=== PATIENT | female | born 1965 | race Caucasian/White ===

== ENCOUNTER 2020-07-09 17:06 | Outpatient (REF) | payer OTHER, SELFPAY ==
--- NOTE | 2020-07-09 | MM_ITS ---
EXAMINATION: MM SCREENING DIGITAL BREAST TOMOSYNTHESIS, BILATERAL CLINICAL INFORMATION: Screening. Asymptomatic. The lifetime risk of breast cancer based on the Tyrer-Cuzick Model is 12.6%. COMPARISON: Mammography: April 17, 2019 and studies dating back to September 16, 2011 TECHNIQUE: Digital breast tomosynthesis is performed in both the craniocaudal and mediolateral oblique views along with computer-aided detection (CAD). Synthesized 2D images are generated from the tomosynthesis. FINDINGS: There are scattered areas of fibroglandular density (ACR BI-RADS breast composition Category b). There are no significant masses, abnormal calcifications, or other abnormalities. Density about the mid lateral aspect of the left breast with a few calcifications is seen to represent superimposition of fibroglandular tissue with some vascular calcifications. MM/MM tomosynthesis screening BI IMPRESSION: There are no significant changes from prior study. ASSESSMENT: BI-RADS 1: Negative RECOMMENDATION: Routine annual mammography screening. This patient's information was entered into a reminder system with a target due date for their next mammogram.
== END 2020-07-09 17:07 | disposition home or self-care (01) ==
LOC: HO.MAMMO 17:06
PROVIDERS: PCP Internal Medicine; Visit Provider Internal Medicine
DX: Z12.31 Encounter for screening mammogram for malignant neoplasm of breast (principal)
CPT/HCPCS: 77063; 77067

== ENCOUNTER → 2020-12-23 08:03 | Outpatient (BNVA) | payer OTHER, SELFPAY | PROVIDERS: PCP Internal Medicine; Visit Provider Internal Medicine ==

== ENCOUNTER → 2020-12-23 | Outpatient (REF) | payer OTHER, SELFPAY | LOC: HO.CARD | PROVIDERS: Visit Provider Internal Medicine | DX: R07.2 Precordial pain (principal); I10 Essential (primary) hypertension; Z79.899 Other long term (current) drug therapy | CPT/HCPCS: 93005 ==

== ENCOUNTER → 2020-12-25 07:25 | Outpatient (REF) | payer OTHER, SELFPAY ==
--- NOTE | ~2020-12-25 | NM_ITS ---
Exercise Myocardial perfusion study Indication: Chest pain on exertion Technique: The patient was brought in for an exercise perfusion study on 12/25/2020. Patient performed exercise as per Zoltan protocol and was injected 30 mCi of sestamibi was given intravenously one target HR was achieved. Images were obtained using the SPECT gamma camera interlaced with the gating device. Images were obtained in supine position. Resting perfusion study was performed on 12/28/2020. Patient was administered 30 mCi of sestamibi intravenously at rest. Images were then obtained in supine position. Gy-cm Images were processed with the software and compared side to side in short axis, horizontal long axis and vertical long axis views. Findings: The stress perfusion study showed non attenuated images show mildly reduced uptake in the septum and distal anterior wall of the LV myocardium. Remainder of the LV myocardium is normally. Attenuation corrected images show moderately reduced uptake in the distal anterior, septal and severely reduced uptake in the distal septum and apex of the myocardium. Remainder of the LV myocardium is normally. The gated study shows normal LV systolic function with calculated LVEF of 59%. LV cavity is mildly dilated in size. The gated study shows normal systolic wall thickening and contraction of all segments. There is no transient ischemic dilation. Resting study shows no change in perfusion pattern compared to stress study. Gating at rest reveals normal systolic wall motion with ejection fraction at 61%. The findings are consistent with no clear reversible defect suggestive of ischemia. Fixed defect most suggestive soft tissue attenuation given that the gated wall motion shows normal thickening normal wall motion. NM/NM avril perf SPECT rest & str Impression: 1. Likely normal myocardial perfusion 2. Gated LVEF is 59% 3. Transient ischemic dilatation not present Stress EKG is positive for ischemia. Clinical correlation suggested
--- NOTE | 2020-12-25 07:28 | CA_ITS ---
Transthoracic Echocardiogram Patient (Last, First, Middle): Stefanie Goins A Gender: Female Date of : 1965 Age: 55 Procedure Date: 12/25/2020 Procedure Type: Transthoracic Echocardiogram Location: OP Height: 167.64 cm Weight: 99.79 kg BSA: 2.08 m2 Heart Rate: bpm BP: 138 / 80 mmHg Prison Classification Counselor: Jaida MD: Jerome Mendieta MD Quality Control Inspector Heading: Anthony Diaz MD Symptoms: I10 - Essential (primary) hypertension Study Quality: Good ECG Rhythm: Sinus Conclusions: - Normal study Findings Left Ventricle Normal left ventricular size, thickness, and systolic function. The visually estimated ejection fraction is between 60-65%. Diastolic function is normal for age. Right Ventricle Normal right ventricular cavity size and systolic function. Atria Both atria are normal in size. There is no evidence of interatrial shunt. Aortic Valve Normal aortic valve structure and function. There is no aortic valve stenosis. There is no aortic valve regurgitation. Mitral Valve Normal mitral valve structure and function. There is trace mitral valve regurgitation. There is no mitral valve stenosis. Pulmonic Valve The pulmonic valve is likely normal. Tricuspid Valve Normal tricuspid valve structure. There is trace tricuspid valve regurgitation. The right ventricular systolic pressure is normal. The right ventricular systolic pressure is 31 mmHg. There is no evidence of pulmonary hypertension. Great Vessels All visible segments of the aorta are normal in size. The pulmonary artery was not well visualized. Venous The inferior vena cava is normal in size and collapses greater than 50% with inspiration. Pericardium/Pleural There is no evidence of pericardial effusion. Measurements 2D Linear Measurements RVIDd: 3.10 RVIDd Index: 1.49 IVSd: 0.95 0.6-0.9/0.6-1.0 cm LVIDd: 5.83 3.9-5.3/4.2-5.9 cm LVIDd Index: 2.80 2.4-3.2/2.2-3.1 cm/m2 LVIDs: 4.05 2.0-3.6 cm LVPWd: 0.92 0.7-1.1 cm Ao Root: 2.90 2.1-3.5 cm LA Diam: 3.80 2.7-3.8/3.0-4.0 cm LAIDs Index: 1.83 1.5-2.3 cm/m2 LV Mass: 269.45 67-162/88-224 g LV Mass Index: 129.54 43-95/49-115 g/m2 LVOT Diam: 2.00 3.0+(-)1.3 cm 2D Systolic Function EF 4C: 59.80 >55% EF 2C: 67.50 >55% EF BiP: 64.10 >55% Mitral Valve MV Pk E: 0.78 MV PK A: 0.64 MV Decel Time: 215.00 E/A: 1.20 E'Lateral: 10.70 E'Medial: 5.87 E/E' Med: 13.20 E/E' Lat: 7.30 Aortic Valve AoV Pk Km: 1.43 AoV Mn Km: 1.04 AoV VTI: 0.35 AoV Pk Grad: 8.00 Aov Mn Grad: 5.00 BOO Cont.VTI: 2.12 LVOT LVOT Pk Km: 0.98 LVOT Mn Km: 0.67 LVOT VTI: 0.23 LVOT Pk Grad: 4.00 LVOT Mn Grad: 2.00 LVOT Diam: 2.00 LVOT Area: 3.14 Diastolic Function MV Pk E: 0.78 MV Pk A: 0.64 E/A: 1.20 E'Medial: 5.87 E/E' Med: 13.20 E' Laterial: 10.70 E/E' Lat: 7.30 Tricuspid Valve TR Pk Km: 2.39 TR Pk Grad: 23.00 RA Press: 8.00 RVSP: 31.00 Great Vessels Aorta Ao Root-2D: 2.90 2.0-3.7 cm Ao Asc: 3.10 2.1-3.4 cm Ao Arch: 2.60 Updated in Other Vendor System with Status of Final Anthony Diaz MD electronically signed on 12/25/2020 12:21:58 PM with status of Final
--- NOTE | 2020-12-25 07:34 | CA_ITS ---
Acquisition Time: 2020-12-25 08:15:32 Total Exercise Time: 00:06:13 Test Indications: Chest Pain Medications: ATORVASTATIN LISINOPRIL METOPROLOL OMEPRAZOLE AMLODIPINE Protocol: SHAMEKA Max HR: 144 BPM 86% of Pred: 166 BPM Max BP: 172/094 mmHG Max Work Load: 7.1 METS Exercise stress test with exercise 6 min 13 sec of Shameka protocol, achieving 85% MPHR, with report of 2/10 squeezing left chest discomfort and mild sob, without arrythmia, with normotensive response to exercise, with EKG changes meeting criteria for ischemia.: [address] depression inferiorly, [address] depressin V6, 1.5mm hortizntal ST depression V3-V5 with gradual improvement in recovery. In recovery her discomfort improved and resolved. Nuclear images pending. Test reviewed with Dr Diaz Referred By: Dung Briceño Overread By: JOSE SCHWARTZ
== END ==
LOC: HO.CARD 07:25
PROVIDERS: Visit Provider Internal Medicine
DX: R07.2 Precordial pain (principal); I10 Essential (primary) hypertension
CPT/HCPCS: 78452; 93016; 93017; 93018; 93306; A9500

== ENCOUNTER → 2021-01-07 08:32 | Outpatient (BNVA) | payer OTHER, SELFPAY | PROVIDERS: PCP Internal Medicine; Visit Provider Internal Medicine ==

== ENCOUNTER 2021-01-30 09:48 | Outpatient (REF) | payer OTHER, SELFPAY ==
[2021-01-30 10:25] LABS: Hematocrit 37.2 % (37-47); Hemoglobin 12.5 g/dl (12.0-16.0); Mean Corpuscular HGB Conc 33.6 g/dl (31.0-35.0); Mean Corpuscular Hemoglobin 29.6 pg (27.0-33.0); Mean Corpuscular Volume 87.9 fL (80-98); Mean Platelet Volume 10.2 fL (9.4-12.3); Platelet Count 252 X10*3/uL (160-400); Red Blood Count 4.23 X10*6/uL (4.20-5.50); White Blood Count 7.3 X10*3/uL (4.8-10.8)
[2021-01-30 10:28] LABS: Prothrombin Time 11.9 SEC (10.8-13.0)
[2021-01-30 10:52] LABS: Anion Gap 12 (12-20); Blood Urea Nitrogen 21 mg/dL (9-16); Calcium 9.1 mg/dL (8.4-10.2); Carbon Dioxide 27 mmol/L (22-29); Chloride 105 mmol/L (96-108); Estimated Glomerular Filt Rate > 60; Glucose Random 83 mg/dL (60-115); Potassium 4.2 mmol/L (3.3-5.1); Sodium 140 mmol/L (135-145)
== END 2021-01-30 09:49 | disposition home or self-care (01) ==
LOC: HO.LAB 09:48
PROVIDERS: PCP Internal Medicine; Visit Provider Internal Medicine
DX: R07.2 Precordial pain (principal)
CPT/HCPCS: 36415; 80048; 85027; 85610

== ENCOUNTER → 2021-02-17 14:33 | Outpatient (BNVA) | payer OTHER, SELFPAY | PROVIDERS: PCP Internal Medicine; Visit Provider Internal Medicine ==

== ENCOUNTER 2021-05-15 08:50 | Outpatient (REF) | payer OTHER, SELFPAY ==
[2021-05-15 11:34] LABS: MANUAL DIFF FLAG NO
[2021-05-15 11:42] LABS: Basophils Absolute Auto 0.1 X10*3/uL (0.0-0.2); Eosinophils Absolute Auto 0.2 X10*3/uL (0.0-0.4); Eosinophils Percent Auto 3.5 % (0-4); Hematocrit 37.1 % (37-47); Hemoglobin 12.5 g/dl (12.0-16.0); Imm Gran Abs Auto 0.01 X10*3/uL (0.00-0.03); Imm Gran Pct Auto 0.2 % (0.0-0.4); Lymphocytes Absolute Auto 1.8 X10*3/uL (1.2-4.9); Lymphocytes Percent Auto 29.5 % (20-40); Mean Corpuscular HGB Conc 33.7 g/dl (31.0-35.0); Mean Platelet Volume 10.3 fL (9.4-12.3); Monocytes Absolute Auto 0.4 X10*3/uL (0.1-1.2); Monocytes Percent Auto 6.2 % (2-11); Neutrophils Absolute Auto 3.5 X10*3/uL (2.0-8.3); Neutrophils Percent Auto 59.6 % (45-73); Platelet Count 264 X10*3/uL (160-400); Red Blood Count 4.17 X10*6/uL (4.20-5.50); Red Cell Distribution Width 12.7 % (11.0-16.0); White Blood Count 5.9 X10*3/uL (4.8-10.8)
[2021-05-15 12:08] LABS: Alanine Aminotransferase 25 U/L (0-31); Albumin Level 4.3 g/dL (3.5-5.0); Alkaline Phosphatase 87 U/L (39-117); Anion Gap 10 (12-20); Aspartate Amino Transferase 18 U/L (5-31); Bilirubin Direct 0.2 mg/dL (0.0-0.5); Bilirubin Total 0.6 mg/dL (0.0-1.0); Blood Urea Nitrogen 16 mg/dL (9-16); Carbon Dioxide 29 mmol/L (22-29); Chloride 106 mmol/L (96-108); Cholesterol 161 mg/dL; Estimated Glomerular Filt Rate > 60; Glucose Fasting 96 mg/dL (60-99); HDL Cholesterol 49 mg/dL; LDL Cholesterol Calculated 89 mg/dl; Sodium 141 mmol/L (135-145); Total Protein 6.5 g/dL (6.5-8.0); Triglycerides 119 mg/dL
== END 2021-05-15 08:51 | disposition home or self-care (01) ==
LOC: HO.HMGCLDS 08:50
PROVIDERS: PCP Internal Medicine; Visit Provider Internal Medicine
DX: Z00.00 Encounter for general adult medical examination without abnormal findings (principal); E78.00 Pure hypercholesterolemia, unspecified; R53.83 Other fatigue
CPT/HCPCS: 36415; 80051; 80061; 80076; 82565; 82947; 84520; 85025

== ENCOUNTER 2021-07-14 13:31 | Outpatient (REF) | payer OTHER, SELFPAY ==
--- NOTE | ~2021-07-14 | MM_ITS ---
EXAMINATION: MM SCREENING DIGITAL BREAST TOMOSYNTHESIS, BILATERAL CLINICAL INFORMATION: Screening. Asymptomatic. The lifetime risk of breast cancer based on the Tyrer-Cuzick Model is 10%. COMPARISON: Mammography: 07/09/2020, 04/17/2019, 04/09/2018 TECHNIQUE: Digital breast tomosynthesis is performed in both the craniocaudal and mediolateral oblique views along with computer-aided detection (CAD). Synthesized 2D images are generated from the tomosynthesis. FINDINGS: There are scattered areas of fibroglandular density (ACR BI-RADS breast composition Category b). There are no significant masses, abnormal calcifications, or other abnormalities. MM/MM tomosynthesis screening BI IMPRESSION: No mammographic evidence of malignancy. ASSESSMENT: BI-RADS 1: Negative RECOMMENDATION: Routine annual mammography screening. This patient's information was entered into a reminder system with a target due date for their next mammogram.
--- NOTE | ~2021-07-14 | MM_ITS ---
EXAMINATION: BONE DENSITOMETRY CLINICAL INDICATION: Menopause. COMPARISON: Baseline BD dated 03/24/2017. TECHNIQUE: Using a [employer] DXA System (software version: 13.1) manufactured by [email or web address], dual-energy x-ray absorptiometry was performed of the lumbar spine and left hip. The images are of good technical quality. Summary results are attached. FINDINGS: AP SPINE L1-L4: Current: BMD 1.231 g/cm2, Z-score 0.1, T-score 0.4, normal, 6.7% decrease from baseline (<5% change is not significant). Baseline: BMD 1.320 g/cm2. LEFT FEMUR, NECK the 2020 and: Current: BMD 1.146 g/cm2, Z-score 1.1, T-score 0.8, normal. Baseline: BMD 1.093 g/cm2. LEFT FEMUR, TOTAL: Current: BMD 1.140 g/cm2, Z-score 0.9, T-score 1.1, normal, 0.7% increase from baseline (<5% change is not significant). Baseline: BMD 1.132 g/cm2. IDENTIFIED RISK FACTORS: Early menopause, secondary osteoporosis, history of fracture (adult), hysterectomy, bilateral oophorectomy. HISTORY OF FRACTURE: Wrist. MEDICATIONS: Calcium supplements or multivitamin, vitamin D, ERT/SERMS. MM/XR DEXA axial skeleton IMPRESSION: 1. DIAGNOSIS: Normal bone density based on the lowest T-score value of 0.4 in the lumbar spine applying World Health Organization criteria. 2. 10-YEAR FRACTURE RISK PREDICTION, FRAX: Major osteoporotic fracture (clinical spine, forearm, hip or shoulder) 7.8%. Hip fracture 0.1%. 3. Treatment Recommendations: NOF guidelines recommend consideration for treatment in postmenopausal women and men age 50 and older presenting with the following: -A hip or vertebral (clinical or morphometric) fracture. -T-score less than or equal to -2.5 at the femoral neck or spine after appropriate evaluation to exclude secondary causes. -Low bone mass at the hip or spine and a 10-year fracture probability by FRAX of greater than or equal to 3% for hip fracture or greater than or equal to 20% for major osteoporotic fracture based on the [place] adapted WHO algorithm. 4. Other Recommendations: All treatment decisions require clinical judgment and consideration of individual patient factors, including patient preferences, comorbidities, previous drug use, risk factors not captured in the FRAX model (e.g. frailty, falls, vitamin D deficiency, increased bone turnover, interval significant decline in bone density) and possible under or overestimation of fracture risk by FRAX. FUTURE SCAN RECOMMENDATION: People with diagnosed cases of osteoporosis or at high risk for fracture should have regular bone mineral density tests. For patients eligible for Medicare, routine testing is allowed once every 2 years. The testing frequency can be increased to one year for patients who have rapidly progressing disease, those who are receiving or discontinuing medical therapy to restore bone mass, or have additional risk factors.
== END 2021-07-14 13:32 | disposition home or self-care (01) ==
LOC: HO.MAMMO 13:31
PROVIDERS: Visit Provider Internal Medicine
DX: Z12.31 Encounter for screening mammogram for malignant neoplasm of breast (principal); Z13.820 Encounter for screening for osteoporosis; Z78.0 Asymptomatic menopausal state; Z98.890 Other specified postprocedural states; Z79.899 Other long term (current) drug therapy
CPT/HCPCS: 77063; 77067; 77080

== ENCOUNTER 2021-11-18 12:33 | Outpatient (REF) | payer OTHER, SELFPAY ==
--- NOTE | ~2021-11-18 | XR_ITS ---
EXAMINATION: XR KNEE, LEFT CLINICAL INFORMATION: Pain left knee COMPARISON: MRI left knee 06/22/2019 TECHNIQUE: 2 views of the left knee. FINDINGS: There is mild loss of patellofemoral compartment joint space. There is mild periarticular spurring along the patella. No loose body seen. There is no joint effusion. No acute fracture or dislocation. XR/XR knee LT 2V IMPRESSION: Degenerative arthritic changes patellofemoral compartment without loose bodies or bony erosive changes.
== END 2021-11-18 12:34 | disposition home or self-care (01) ==
LOC: HO.HOSX 12:33
PROVIDERS: Visit Provider Orthopaedic Surgery
DX: M17.10 Unilateral primary osteoarthritis, unspecified knee (principal)
CPT/HCPCS: 20610; 73560; 73565; J1100

== ENCOUNTER 2022-05-21 08:01 | Outpatient (REF) | payer OTHER, SELFPAY ==
[2022-05-21 11:11] LABS: MANUAL DIFF FLAG NO
[2022-05-21 11:21] LABS: Basophils Absolute Auto 0.1 X10*3/uL (0.0-0.2); Basophils Percent Auto 1.2 % (0-2); Eosinophils Absolute Auto 0.2 X10*3/uL (0.0-0.4); Eosinophils Percent Auto 3.7 % (0-4); Hematocrit 38.9 % (37.0-47.0); Hemoglobin 13.2 g/dl (12.0-16.0); Imm Gran Abs Auto 0.02 X10*3/uL (0.00-0.03); Imm Gran Pct Auto 0.3 % (0.0-0.4); Lymphocytes Absolute Auto 1.9 X10*3/uL (1.2-4.9); Lymphocytes Percent Auto 29.3 % (20-40); Mean Corpuscular HGB Conc 33.9 g/dl (31.0-35.0); Mean Corpuscular Hemoglobin 29.8 pg (27.0-33.0); Mean Corpuscular Volume 87.8 fL (80.0-98.0); Mean Platelet Volume 10.6 fL (9.4-12.3); Monocytes Absolute Auto 0.5 X10*3/uL (0.1-1.2); Monocytes Percent Auto 6.9 % (2-11); Neutrophils Absolute Auto 3.8 x10*3/uL (2.0-8.3); Neutrophils Percent Auto 58.6 % (45-73); Platelet Count 290 X10*3/uL (160-400); Red Blood Count 4.43 X10*6/uL (4.20-5.50); Red Cell Distribution Width 12.6 % (11.0-16.0); White Blood Count 6.5 X10*3/uL (4.8-10.8)
[2022-05-21 11:30] LABS: Alanine Aminotransferase 26 U/L (0-31); Albumin Level 4.8 g/dL (3.5-5.0); Alkaline Phosphatase 108 U/L (39-117); Anion Gap 16 (12-20); Aspartate Amino Transferase 21 U/L (5-31); Bilirubin Total 0.8 mg/dL (0.0-1.0); Blood Urea Nitrogen 18 mg/dL (9-16); Calcium 9.4 mg/dL (8.4-10.2); Carbon Dioxide 26 mmol/L (22-29); Chloride 104 mmol/L (96-108); Cholesterol 184 mg/dL; Estimated Glomerular Filt Rate > 60; Glucose Fasting 104 mg/dL (60-99); HDL Cholesterol 51 mg/dL; LDL Cholesterol Calculated 115 mg/dl; Potassium 3.7 mmol/L (3.3-5.1); Sodium 142 mmol/L (135-145); Total Protein 7.2 g/dL (6.5-8.0); Triglycerides 94 mg/dL
== END 2022-05-21 08:02 | disposition home or self-care (01) ==
LOC: HO.HMGCLDS 08:01
PROVIDERS: PCP Internal Medicine; Visit Provider Internal Medicine
DX: Z00.00 Encounter for general adult medical examination without abnormal findings (principal); E78.5 Hyperlipidemia, unspecified; R53.83 Other fatigue
CPT/HCPCS: 36415; 80053; 80061; 85025

== ENCOUNTER 2022-07-15 15:56 | Outpatient (REF) | payer OTHER, SELFPAY ==
--- NOTE | ~2022-07-15 | MM_ITS ---
EXAMINATION: MM SCREENING DIGITAL BREAST TOMOSYNTHESIS, BILATERAL CLINICAL INFORMATION: Screening. Asymptomatic. The lifetime risk of breast cancer based on the Tyrer-Cuzick Model is 10%. COMPARISON: Mammography: 07/14/2021, 07/09/2020, 04/17/2019 TECHNIQUE: Digital breast tomosynthesis is performed in both the craniocaudal and mediolateral oblique views along with computer-aided detection (CAD). Synthesized 2D images are generated from the tomosynthesis. FINDINGS: There are scattered areas of fibroglandular density (ACR BI-RADS breast composition Category b). There are no significant masses, abnormal calcifications, or other abnormalities. Parenchymal pattern is similar to prior studies. There is no developing density or architectural abnormality. The axilla and skin contours are unremarkable. No significant changes. MM/MM tomosynthesis screening BI IMPRESSION: No mammographic evidence of malignancy. ASSESSMENT: BI-RADS 1: Negative RECOMMENDATION: Routine annual mammography screening. This patient's information was entered into a reminder system with a target due date for their next mammogram.
== END 2022-07-15 15:57 | disposition home or self-care (01) ==
LOC: HO.MAMMO 15:56
PROVIDERS: PCP Internal Medicine; Visit Provider Internal Medicine
DX: Z12.31 Encounter for screening mammogram for malignant neoplasm of breast (principal)
CPT/HCPCS: 77063; 77067

== ENCOUNTER 2023-04-07 09:32 | Outpatient (REF) | payer OTHER, SELFPAY ==
--- NOTE | ~2023-04-07 | XR_ITS ---
EXAMINATIONS: BILATERAL KNEES CLINICAL INFORMATION: Pain in both knees COMPARISON: None. TECHNIQUE: AP weightbearing bilaterally, lateral and sunrise views of each knee were obtained. FINDINGS: Left knee demonstrate narrowing of medial compartment of left knee joint on weightbearing view with marginal spurring medially and mild varus deformity. Patellofemoral compartment is unremarkable. No joint effusion. Right knee revealed no narrowing of the joint spaces or evidence of osteoarthritis. Patellofemoral compartment is unremarkable. XR/XR knee standing BI IMPRESSION: 1. Changes of osteoarthritis in the medial compartment of left knee joint with mild varus deformity. 2. Normal right knee.
--- NOTE | ~2023-04-07 | XR_ITS ---
EXAMINATIONS: BILATERAL KNEES CLINICAL INFORMATION: Pain in both knees COMPARISON: None. TECHNIQUE: AP weightbearing bilaterally, lateral and sunrise views of each knee were obtained. FINDINGS: Left knee demonstrate narrowing of medial compartment of left knee joint on weightbearing view with marginal spurring medially and mild varus deformity. Patellofemoral compartment is unremarkable. No joint effusion. Right knee revealed no narrowing of the joint spaces or evidence of osteoarthritis. Patellofemoral compartment is unremarkable. XR/XR knee LT 2V IMPRESSION: 1. Changes of osteoarthritis in the medial compartment of left knee joint with mild varus deformity. 2. Normal right knee.
--- NOTE | ~2023-04-07 | XR_ITS ---
EXAMINATIONS: BILATERAL KNEES CLINICAL INFORMATION: Pain in both knees COMPARISON: None. TECHNIQUE: AP weightbearing bilaterally, lateral and sunrise views of each knee were obtained. FINDINGS: Left knee demonstrate narrowing of medial compartment of left knee joint on weightbearing view with marginal spurring medially and mild varus deformity. Patellofemoral compartment is unremarkable. No joint effusion. Right knee revealed no narrowing of the joint spaces or evidence of osteoarthritis. Patellofemoral compartment is unremarkable. XR/XR knee RT 2V IMPRESSION: 1. Changes of osteoarthritis in the medial compartment of left knee joint with mild varus deformity. 2. Normal right knee.
== END 2023-04-07 09:33 | disposition home or self-care (01) ==
LOC: HO.HOSX 09:32
PROVIDERS: Visit Provider Orthopaedic Surgery
DX: M17.0 Bilateral primary osteoarthritis of knee (principal)
CPT/HCPCS: 20610; 73560; 73565; J1100

== ENCOUNTER 2023-04-07 12:24 | Outpatient (AMB) | payer OTHER, SELFPAY ==
--- NOTE | 2023-04-07 12:27 | A.OFFVIS_ITS ---
Intake Intake Visit Reasons: OV- B/L Knee pain Intake Note: Stefanie is a 58 year old female who presents today for a follow up of her bilateral knee pain. Last injection was done in the left knee 11/18/22. Patient reports that the last injection was helpful but she had significant increase in pain during and after the injection. The left knee is feeling about the same, she complains of pain in the back of the knee as well. The right knee seems to have gotten worse, and is painful at night that keeps her awake. She is taking OTC NSAIDs and topical pain creams which only offer mild relief. Allergies oxycodone [Percocet] Allergy (Unknown, Verified 02/17/21 15:18) Itchiness LATEX GLUE Allergy (Unknown, Uncoded 02/17/21 15:18) RED INFLAMED. HPI OV- B/L Knee pain HPI Details Stefanie is a 58 year old woman who presents with complaints of bilateral knee pain. She has known left PF OA and last received an injection on 11/18/21, with good relief. She complains of pain in her knees with daily activity, worse with kneeling or using stairs, any motion that involves knee flexion hurts her. She says her pain is worse at night and wakes her up. She also has worsening pain in the back of her knees as well. She takes NSAIDs and uses an OTC pain cream, with some relief. She says her last injection made her knee feel awful for some time afterwards, which is why she did not return for a repeat injection sooner. 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 Review of Systems Const All systems reviewed & are unremarkable except as noted in HPI and below Physical Exam Const General: no acute distress, alert and awake Orientation/consciousness: patient oriented x3 HEENT Head: Yes normocephalic and Yes atraumatic Eyes EOM: EOMs intact bilaterally Resp Effort & Inspection: normal respiratory effort and able to speak in complete sentences Cardio Jugular venous distension: no JVD Skin General skin exam: turgor normal Rashes: no rashes Neuro General: patient oriented x3 Extrem Other: Bilateral Knees: ttp lateral retropatellar facet bilaterally right > left left knee posterior fullness Psych Appearance: grossly normal Affect: normal affect Attitude: cooperative Office Procedures Joint Injection/Drain Joint Injection/Drain Details: Injected 1 mL of Decadron and 3 mL 1% lidocaine and 3 mL of 0.25% Marcaine. Site was prepped using aseptic technique. Patient tolerated the procedure well. Primary Site: right knee Secondary Site: left knee Approach Used: anterolateral Coding - Large joint - Glenohumeral/Tronchanteric Bursa/Intraarticular Procedure code (CPT) selection complete Results Reviewed Results Reviewed: 04/07/23 13:01 BUPivacaine MPF 0.25 % [Sensorcaine-MPF 0.25% 10 ML] 10 ml .ROUTE .STK-MED ONE Lidocaine HCl 1 % [Xylocaine 1 %] 2 ml .ROUTE .STK-MED ONE Lidocaine HCl 2 % MPF [Xylocaine 2 % MPF] 5 ml .ROUTE .STK-MED ONE dexAMETHasone sod phosphate [Decadron] 4 mg .ROUTE .STK-MED ONE I personally reviewed relevant radiographs. Moderate bilateral PF OA Assessment & Plan Assessment & Plan (1) Osteoarthritis of left knee: Code(s): M17.12 - Unilateral primary osteoarthritis, left knee Plan: This is a 58 year old woman with moderate left PF OA. She has pain with daily activity, worse with kneeling activities or using stairs, and at night. She had some relief from a past injection on 11/18/21, with good relief though pain for several days following this injection. I discussed her diagnosis and treatment options. I recommend NSAIDs and she continue activity as tolerated, being mindful to not push through her pain. I injected both knees today, which she tolerated well. She can follow up in 3 months. (2) Osteoarthritis of right knee: Code(s): M17.11 - Unilateral primary osteoarthritis, right knee Plan: Moderate right PF OA. Pain with activity, worse with kneeling or using stairs. I injected her right knee today, which she tolerated well. Plan Scribed for Antony Kim MD by Denis Marie, medical malpractice paralegal, on 04/07/23 at 1 2:55 PM, EST. Orders: Orders XR knee LT 2V Today M25.569 - Pain in unspecified knee XR knee RT 2V Today M25.569 - Pain in unspecified knee XR knee standing BI Today M25.569 - Pain in unspecified knee Coding Level of Care Code Est Pt Level 3 (08586) Diagnoses Osteoarthritis of left knee M17.12 Osteoarthritis of right knee M17.11 CPT Codes Coding - 76370 Large joint: 75816 - Large joint ([id number]) Coding - Joint 7: 88701 - Glenohumeral/Tronchanteric Bursa/Intraarticular ([id number])
== END 2023-04-07 13:28 | disposition home or self-care (01) ==
PROVIDERS: PCP Internal Medicine; Visit Provider Orthopaedic Surgery
DX: M17.0 Bilateral primary osteoarthritis of knee (principal)
CPT/HCPCS: 20610; 99213

== ENCOUNTER 2023-04-20 14:14 | Outpatient (AMB) | payer OTHER, SELFPAY ==
--- NOTE | 2023-04-20 14:18 | MHC.OFFVIS ---
Intake Intake Visit Reasons: OV - B/L Knee Pain - Continued Pain Intake Note: Stefanie is a 58 year old female who presents today for a follow up of her bilateral knee OA, last seen on 04/07/23 where she received injections. These injections were not helpful and she would like to discuss MRI. Patient reports that the injection in the left knee has been helpful, however the right knee has continued paind in the right knee. She feels that the right knee is unstable, has difficulty with getting up from a chair or the ground. She finds increased pain with flexion of the right knee, this pain is felt on the anterior/medial aspect of the knee. Allergies oxycodone [Percocet] Allergy (Unknown, Verified 04/20/23 14:22) Itchiness LATEX GLUE Allergy (Unknown, Uncoded 04/20/23 14:22) RED INFLAMED. HPI OV - B/L Knee Pain - Continued Pain HPI Details Stefanie is a 58 year old woman who returns with complaints of right knee pain. She has known left PF OA and last received bilateral knee injections on 04/07/23. She says these injections did not help her pain. She continues to complain of pain in her right knee with daily activity, worse with kneeling or using stairs, any motion that involves knee flexion hurts her. She says her injection gave her relief for ~2 days. She is worried about her knee giving way. Her pain is mostly in the medial & anterior aspect of her knee. In regards to her left knee she is doing well and she says the injection was helpful for her She takes NSAIDs and uses an OTC pain cream, with some relief. 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 Review of Systems Const All systems reviewed & are unremarkable except as noted in HPI and below Physical Exam Const General: no acute distress, alert and awake Orientation/consciousness: patient oriented x3 HEENT Head: Yes normocephalic and Yes atraumatic Eyes EOM: EOMs intact bilaterally Resp Effort & Inspection: normal respiratory effort and able to speak in complete sentences Cardio Jugular venous distension: no JVD Skin General skin exam: turgor normal Rashes: no rashes Neuro General: patient oriented x3 Extrem Other: Right Knee: TTP medial joint line Mild effusion Mild tenderness over medial tibial plateau Psych Appearance: grossly normal Affect: normal affect Attitude: cooperative Assessment & Plan Assessment & Plan (1) Effusion, right knee: Code(s): M25.461 - Effusion, right knee Plan: This is a 58 year old woman with moderate right PF OA with a moderate effusion. She has pain with daily activity, worse with kneeling activities or using stairs, and at night. She had only ~2 days of relief from injection on 04/07/23 and continues to have pain. I ordered an MRI to assess her right knee today, and recommend NSAIDs, especially for her pain at night. Her has a Cryo-cuff at home that I recommend she use, and she should be mindful to not push through pain and rest her knee when hurting. She will follow up when completed for review. I prescribed a topical compounding cream & Diclofenac. (2) Osteoarthritis of right knee: Code(s): M17.11 - Unilateral primary osteoarthritis, right knee (3) Osteoarthritis of left knee: Code(s): M17.12 - Unilateral primary osteoarthritis, left knee Plan: Moderate left PF OA. Pain with daily activity, but good relief from her injection on 04/07/23. No complaints today. Plan Scribed for Antony Kim MD by Denis Marie, biomedical engineering director, on 04/20/23 at 2:30 PM, EST. Orders: Orders MR knee RT wo con 04/20/23 M25.461 - Effusion, right knee Medications: New diclofenac sodium 75 mg PO BID 60 tabs 0RF Coding Level of Care Code Est Pt Level 4 (92388) Diagnoses Effusion, right knee M25.461 Osteoarthritis of right knee M17.11 Osteoarthritis of left knee M17.12
== END 2023-04-20 15:11 | disposition home or self-care (01) ==
PROVIDERS: PCP Internal Medicine; Visit Provider Orthopaedic Surgery
DX: M25.461 Effusion, right knee (principal); M17.0 Bilateral primary osteoarthritis of knee
CPT/HCPCS: 99214

== ENCOUNTER → 2023-04-20 14:14 | Outpatient (BNVA) | payer OTHER, SELFPAY | PROVIDERS: PCP Internal Medicine; Visit Provider Orthopaedic Surgery ==

== ENCOUNTER 2023-04-26 15:44 | Outpatient (REF) | payer OTHER, SELFPAY ==
--- NOTE | ~2023-04-26 | MR_ITS ---
EXAMINATION: MR KNEE WITHOUT CONTRAST, RIGHT CLINICAL INFORMATION: Right knee pain following injury on 04/23/2023. Anterior and lateral pain. COMPARISON: Right knee radiograph dated 04/07/2023. TECHNIQUE: MRI of the knee without contrast was performed using routine sequences on a high-field scanner. FINDINGS: MENISCI: Medial Meniscus: Near-complete radial tear of the posterior root measuring up to 0.9 cm in ML dimension with mild medial extrusion of the meniscal body. Lateral Meniscus: Intact. LIGAMENTS: Cruciate: Intact. Collateral: Intact. EXTENSOR MECHANISM: Intact. ARTICULAR CARTILAGE/BONE: Patellofemoral Compartment: Medial trochlear articular cartilage thinning with areas of [id number]-[id number] loss and tiny marginal osteophytes. Medial Compartment: Intact articular cartilage. Lateral Compartment: Intact articular cartilage. JOINT FLUID AND BURSAE: Small joint effusion. MR/MR knee RT wo con IMPRESSION: 1. Near-complete radial tear of the medial meniscus posterior root measuring 0.9 cm in ML dimension with mild medial extrusion of the meniscal body. 2. Mild patellofemoral osteoarthritis. 3. Small joint effusion.
== END 2023-04-26 15:45 | disposition home or self-care (01) ==
LOC: HO.MRI 15:44
PROVIDERS: PCP Internal Medicine; Visit Provider Orthopaedic Surgery
DX: M25.461 Effusion, right knee (principal)
CPT/HCPCS: 73721

== ENCOUNTER 2023-04-28 10:08 | Outpatient (AMB) | payer OTHER, SELFPAY ==
--- NOTE | 2023-04-28 10:26 | A.OFFVIS_ITS ---
Intake Intake Visit Reasons: review MRI Intake Note: Stefanie is a 58 year old female who presents today with her for an MRI follow up of the right knee. Allergies oxycodone [Percocet] Allergy (Unknown, Verified 04/20/23 14:22) Itchiness LATEX GLUE Allergy (Unknown, Uncoded 04/20/23 14:22) RED INFLAMED. HPI review MRI HPI Details Stefanie is a 58 year old woman who presents for an MRI review of her right knee pain. She says her pain improved somewhat last week, but she felt a painful popping sensation when using stairs on the weekend, which worsened her pain. She says this popping was mostly on the lateral aspect of her knee. She says following this injury on 04/20/23 she feels she is worse off than she was prior to her injection She continues to have pain in her right knee with daily activity, worse with kneeling or using stairs, any motion that involves knee flexion hurts her. Her pain is mostly in the medial & anterior aspect of her knee. She says she had to stop her Diclofenac after ~3 days due to GI upset. 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 Review of Systems Const All systems reviewed & are unremarkable except as noted in HPI and below Physical Exam Const General: no acute distress, alert and awake Orientation/consciousness: patient oriented x3 HEENT Head: Yes normocephalic and Yes atraumatic Eyes EOM: EOMs intact bilaterally Resp Effort & Inspection: normal respiratory effort and able to speak in complete sentences Cardio Jugular venous distension: no JVD Skin General skin exam: turgor normal Rashes: no rashes Neuro General: patient oriented x3 Extrem Other: Right Knee: TTP medial joint line Mild effusion Mild tenderness over medial tibial plateau Psych Appearance: grossly normal Affect: normal affect Attitude: cooperative Results Reviewed Results Reviewed: I personally reviewed relevant MR images 1.? Near-complete radial tear of the medial meniscus posterior root measuring 0.9 cm in ML dimension with mild medial extrusion of the meniscal body. 2.? Mild patellofemoral osteoarthritis. 3.? Small joint effusion Assessment & Plan Assessment & Plan (1) Tear of medial meniscus of right knee: Code(s): S83.241A - Other tear of medial meniscus, current injury, right knee, initial encounter Plan: This is a 58 year old woman with a right knee medial meniscus tear of the posterior root, with mild-moderate PF OA & moderate effusion. She had worsening pain following an injury on 04/20/23 while climbing stairs. She has pain with daily activity, worse with kneeling activities or using stairs, and at night. She had only ~2 days of relief from injection on 04/07/23 and continues to have pain. I discussed her diagnosis, treatment options, and reviewed her MRI with he r. I recommend a right knee with possible meniscal root repair. I discussed the risks, benefits, and alternatives including, but not limited to, the risk of pain, infection, stiffness, need for further surgery as well as potential medical complications such as blood clots, pulmonary embolism and cardiac complications. I discussed the recovery timeline and process as well as the importance of PT. Stefanie wishes to proceed with this decision. (2) Effusion, right knee: Code(s): M25.461 - Effusion, right knee (3) Osteoarthritis of right knee: Code(s): M17.11 - Unilateral primary osteoarthritis, right knee Plan Scribed for Antony Kim MD by Denis Marie, medical records director, on 04/28/23 at 10:55 AM, EST. Coding Level of Care Code Est Pt Level 4 (35757) Diagnoses Tear of medial meniscus of right knee S83.241A Effusion, right knee M25.461 Osteoarthritis of right knee M17.11
== END 2023-04-28 11:41 | disposition home or self-care (01) ==
PROVIDERS: PCP Internal Medicine; Visit Provider Orthopaedic Surgery
DX: S83.241A Other tear of medial meniscus, current injury, right knee, initial encounter (principal); M25.461 Effusion, right knee; M17.11 Unilateral primary osteoarthritis, right knee
CPT/HCPCS: 99214

== ENCOUNTER → 2023-04-28 10:08 | Outpatient (BNVA) | payer OTHER, SELFPAY | PROVIDERS: PCP Internal Medicine; Visit Provider Orthopaedic Surgery ==

== ENCOUNTER 2023-05-02 10:10 | Outpatient (REF) | payer OTHER, SELFPAY ==
--- NOTE | ~2023-05-02 | XR_ITS ---
EXAMINATION: XR CHEST CLINICAL INFORMATION: Cough. Rule out pneumonia. COMPARISON: Chest x-ray November 08, 2018 TECHNIQUE: 2 views of the chest were obtained. FINDINGS: Cardiac silhouette is normal in size. The lungs are well aerated. There is no lobar consolidation. No pleural effusion or pneumothorax. Mild degenerative changes of the spine. XR/XR chest 2V IMPRESSION: No acute pulmonary pathology.
== END 2023-05-02 10:11 | disposition home or self-care (01) ==
LOC: HO.HMGCX 10:10
PROVIDERS: PCP Internal Medicine; Visit Provider Internal Medicine
DX: R05.9 Cough, unspecified (principal)
CPT/HCPCS: 71046

== ENCOUNTER 2023-05-31 08:55 | Day surgery (SDC) | payer OTHER, SELFPAY ==
[2023-05-05 15:15] VITALS: BMI 34.4
--- NOTE | 2023-05-09 09:03 | P.CONAN_ITS ---
Documented by User: Naz Belle NP 05/17/23 10:40 HPI - Anesthesia Eval Consult details Narrative: 58yo F for Right Knee Arthroscopy meniscus root repair, 05/31/232020 cardiac w/u for CP all negative including cardiac cath. Only prn cardiac f/u. PMFSH Active Problems Active Problems: All Active Problems (Updated 05/05/23 @ 15:13 by Sara Silva RN) Tear of medial meniscus of right knee (Acute) Effusion, right knee (Acute) Osteoarthritis of right knee (Acute) Osteoarthritis of left knee (Acute) Osteoarthritis of patellofemoral joint (Acute) Abnormal stress test (Acute) Precordial chest pain (Acute) Essential hypertension (Acute) Past Medical History Medical History (Updated 05/05/23 @ 15:13 by Sara Silva RN) Arthritis Elevated cholesterol GERD (gastroesophageal reflux disease) Essential hypertension Family History Family History (Updated 05/05/23 @ 15:14 by Sara Silva RN) Father Brain cancer Mother Status post placement of cardiac pacemaker Breast cancer PONV (postoperative nausea and vomiting) Surgical History Surgical History (Updated 05/05/23 @ 15:12 by Sara Silva RN) Hx of arthroscopy of left knee Hx of foot surgery History of bilateral carpal tunnel release History of lumpectomy of left breast History of total hysterectomy History of cardiac catheterization (~05/16/18) Social History Social History (Updated 05/05/23 @ 15:14 by Sara Silva RN) Are you a primary rn wound care to a significant other at home: No Do you presently have visiting nurse or other home services: No Patient Tobacco Use Status: Never used Tobacco Use of substances other than those prescribed or required for medical reasons: No Have you been hit, kicked, punched, or otherwise hurt by someone within the past year? 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 Allergies Allergy/AdvReac Type Severity Reaction Status Date / Time oxycodone [Percocet] Allergy Intermediate Itchiness Verified 05/05/23 15:07 LATEX GLUE Allergy Intermediate redness Uncoded 05/05/23 15:07 and inflammation Home Medications Medication Instructions Recorded Confirmed Last Taken Type ascorbic acid (vitamin C) 1,000 mg 1 g PO DAILY 12/23/20 05/05/23 Unknown History tablet atorvastatin 10 mg tablet 10 mg PO DAILY 12/23/20 05/05/23 Unknown History lisinopril 10 mg tablet 10 mg PO DAILY 12/23/20 05/05/23 Unknown History metoprolol succinate 100 mg 100 mg PO DAILY 12/23/20 05/05/23 Unknown History tablet,extended release 24 hr multivitamin 1 tab PO DAILY 12/23/20 05/05/23 Unknown History omega-3 fatty acids 1,000 mg 1,000 mg PO DAILY 12/23/20 05/05/23 Unknown History capsule (Fish Oil Concentrate) omeprazole 20 mg capsule,delayed 20 mg PO DAILY 12/23/20 05/05/23 Unknown History release Probiotic 05/05/23 Unknown History zinc 05/05/23 05/05/23 Unknown History Exam Exam Date and Time: May 09, 2023902 Height,Weight and Vital Signs: Height 5 ft 5 in Weight 93.894 kg Assessment and Plan Assessment Anesthesia Assessment: Chart Reviewed Documented by User: Ti oMtt MD 05/31/23 11:58 [facility] Past Medical History Medical History (Updated 05/05/23 @ 15:13 by Sara Silva RN) Arthritis Elevated cholesterol GERD (gastroesophageal reflux disease) Essential hypertension Family History Family History (Updated 05/05/23 @ 15:14 by Sara Silva RN) Father Brain cancer Mother Status post placement of cardiac pacemaker Breast cancer PONV (postoperative nausea and vomiting) Family history of problems with anesthesia: No Surgical History Surgical History (Updated 05/05/23 @ 15:12 by Sara Silva RN) Hx of arthroscopy of left knee Hx of foot surgery History of bilateral carpal tunnel release History of lumpectomy of left breast History of total hysterectomy History of cardiac catheterization (~05/16/18) History of Problems with Anesthesia: No Social History Social History (Updated 05/05/23 @ 15:14 by Sara Silva RN) Are you a primary rn wound care to a significant other at home: No Do you presently have visiting nurse or other home services: No Patient Tobacco Use Status: Never used Tobacco Use of substances other than those prescribed or required for medical reasons: No Have you been hit, kicked, punched, or otherwise hurt by someone within the past year? 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 Allergies Allergy/AdvReac Type Severity Reaction Status Date / Time oxycodone [Percocet] Allergy Intermediate Itchiness Verified 05/05/23 15:07 LATEX GLUE Allergy Intermediate redness Uncoded 05/05/23 15:07 and inflammation Home Medications Medication Instructions Recorded Confirmed Last Taken Type ascorbic acid (vitamin C) 1,000 mg 1 g PO DAILY 12/23/20 05/05/23 Unknown History tablet atorvastatin 10 mg tablet 10 mg PO DAILY 12/23/20 05/05/23 Unknown History lisinopril 10 mg tablet 10 mg PO DAILY 12/23/20 05/05/23 Unknown History metoprolol succinate 100 mg 100 mg PO DAILY 12/23/20 05/05/23 Unknown History tablet,extended release 24 hr multivitamin 1 tab PO DAILY 12/23/20 05/05/23 Unknown History omega-3 fatty acids 1,000 mg 1,000 mg PO DAILY 12/23/20 05/05/23 Unknown History capsule (Fish Oil Concentrate) omeprazole 20 mg capsule,delayed 20 mg PO DAILY 12/23/20 05/05/23 Unknown History release Probiotic 05/05/23 Unknown History zinc 05/05/23 05/05/23 Unknown History Exam Airway Mallampati Class: II TM Dist: <=3cm Neck ROM: Limited Heart: cta Lungs: rrr Assessment and Plan Assessment Anesthesia Assessment: Anesthesia Plan Discussed Final Anesthetic Review Family History of Problems with Anesthesia: No History of Problems with Anesthesia: No NPO: Yes ASA Class: II Final Preanesthetic Review: No Changes in Pt Med Stat, Meds/Allgs Chart Reviewed, Consent Obtained/Reviewed and Anes Risks/Benef Reviewed Patient Risk: Intermediate Procedure Risk: Intermediate Anesthetic Plan Anesthetic Plan: GA and Agree w/ Assess. and Plan Disposition: Standard PACU
[2023-05-31] VITALS (11 sets, daily range): BP systolic 118–139; BP diastolic 65–89; PULSE 56–79; RESP 14–20; TEMP 36–36.6; O2SAT 98–100
[2023-05-31] MEDS: Lactated Ringers 1,000 ML 100 ML IVCONT (09:56)
--- NOTE | 2023-05-31 11:14 | MHC.SHP ---
Pre-Procedural Eval Section A Date of Service: 05/31/23 The patient is an INPATIENT: No Changes since office visit: No Cold of Flu in the past 2 weeks, No New Medical Problems, No Changes in Medication and No Patient answered all questions The History & Physical has been completed within 30 days and I have reviewed it.: Yes Section B Chief Complaint: Other tear of medial meniscus, current injury, rig Allergies: Allergies Allergy/AdvReac Type Severity Reaction Status Date / Time oxycodone [Percocet] Allergy Intermediate Itchiness Verified 05/05/23 15:07 LATEX GLUE Allergy Intermediate redness Uncoded 05/05/23 15:07 and inflammation Plan I have reviewed the history and physical and performed a pertinent physical examination on my patient. No changes have occurred unless specified. Time Spent With Patient Time: Total time managing care of this patient today ____ minutes.
--- NOTE | 2023-05-31 13:41 | P.BOP_ITS ---
Brief Operative Note Date of Service: 05/31/23 Pre-op diagnosis: RIght knee meniscal root tear Post-op diagnosis: same Procedure: Meniscal root repair Implants: Patel and Nephew anchor Surgeon: Antony Kim MD Anesthesia: GLMA Was an Emotionally Impaired Teacher used for this Procedure?: Yes Emotionally Impaired Teacher: Nazanin Mann Estimated blood loss (mL): 5 Tourniquet time (min): 30 IV fluids (mL): 800 Pathology: none sent Condition: stable Disposition: PACU
[2023-05-31] MEDS: fentaNYL citrate/PF 100 MCG/2 ML VIAL 25 MCG IVPUSH ×3 (13:46→14:10)
[2023-05-31] MEDS: HYDROmorphone HCl 2 MG TABLET PO (13:51)
--- NOTE | 2023-06-20 09:44 | W.PM.OPN ---
Operative Note Operative Note Date of Service: 05/31/23 Narrative: Date of Service: 05/31/23 Pre-op diagnosis: RIght knee meniscal root tear Post-op diagnosis: same Procedure: Meniscal root repair Implants: Hunt and Nephew anchor Surgeon: Antony Kim MD Anesthesia: GLMA Was an Stonecutter Apprentice Hand used for this Procedure?: Yes Stonecutter Apprentice Hand: Nazanin Mann Estimated blood loss (mL): 5 Tourniquet time (min): 30 IV fluids (mL): 800 Pathology: none sent Condition: stable Disposition: PACU Patient was brought to the operating room placed supine on the arthroscopic table and prepped and draped in standard sterile fashion. A time-out was called to identify proper site proper procedure proper surgeon and IV antibiotics per weight were administered. I began by exsanguinating the limb and insufflating tourniquet to 300 mm Hg. Then made a standard anterolateral stab incision. The knee was insufflated with water and 30 degree arthroscope was placed. There was grade 1 fibrillations of the patella but overall suprapatellar pouch was plane and the gutters were clean. There were G2 changes of the anterior aspect of the MFC adjacent to the trochlear groove. I descended into the medial compartment where I made my medial portal under direct visualization. The notch was examined and the ACL/PCL were intact. The lateral compartment was normal with no meniscal or articualr cartilage abnormalities. The medial compartment was then carefully inspected. There were G1 changes of the tibial plateau and the MFC. The meniscus root was completely torn and this was clearly visualized. There was no additional damage to the meniscus. I debrided the medial root and used a rasp to debride the bony bed. I then used a suture passer to pass two suture tape (Hunt and Nephew) through the free end to the medial meniscus. I then used a guide to drill my tibial tunnel. A small full-thickness incision was made just lateral to the tibial tubercle and a wire was passed through the posterior lateral aspect of the posteromedial meniscal bed just medial to the PCL. A lasso suture was used to grab the two ends of the suture tape and these were brought through to the anterolateral tibia. The sutures were then pulled taught and the MM was examind. I was very satisfied with the position and the stability. The free suture ends were then passed through a [place] and this was buried just distal to the previously drilled tunnel. Again the MM was examined and it was stable and in anatomic position. I then removed all instrumentation and closed the portals with nylon. 25 mL of 2% Marcaine with epinephrine was injected into the joint and the surrounding soft tissues. Patient was then placed in sterile dressing extubated brought recovery room stable condition. There were no known complications.
== END 2023-05-31 15:37 | disposition home or self-care (01) ==
LOC: HO.SSS 08:56
PROVIDERS: PCP Internal Medicine; Visit Provider Orthopaedic Surgery
PROC: (CPT 29870; principal; 2023-05-31 11:30)
DX: S83.241A Other tear of medial meniscus, current injury, right knee, initial encounter (principal); X58.XXXA Exposure to other specified factors, initial encounter; M25.461 Effusion, right knee; I10 Essential (primary) hypertension; E78.5 Hyperlipidemia, unspecified; K21.9 Gastro-esophageal reflux disease without esophagitis; M17.11 Unilateral primary osteoarthritis, right knee; Z79.899 Other long term (current) drug therapy; Y93.9 Activity, unspecified; Y92.9 Unspecified place or not applicable; Y99.9 Unspecified external cause status
CPT/HCPCS: 29881; C1713; J0131; J0171; J0690; J1100; J1885; J2250; J2405; J2795; J3010

== ENCOUNTER → 2023-05-31 08:55 | Outpatient (BNV) | payer OTHER, SELFPAY | PROVIDERS: PCP Internal Medicine; Visit Provider Orthopaedic Surgery | DX: S83.231A Complex tear of medial meniscus, current injury, right knee, initial encounter (principal) | CPT/HCPCS: 29882 ==

== ENCOUNTER 2023-06-08 10:19 | Outpatient (AMB) | payer OTHER, SELFPAY ==
--- NOTE | 2023-06-08 10:21 | MHC.OFFVIS ---
Intake Vital Signs 06/08/23 10:26 Height 5 ft 5.5 in Weight 207 lb BMI 33.9 Intake Visit Reasons: PO-Rt Knee 05/31/23 NE Intake Note: Stefanie hodge 58 year old female presents today for a post operative right knee , DOS 05/31/23 NE. Patient reports swelling in knee, discomfort at the anterior aspect of knee and calf. States soreness in her thigh area. Concerned that she was not contacted to start PT. Allergies oxycodone [Percocet] Allergy (Intermediate, Verified 05/05/23 15:07) Itchiness LATEX GLUE Allergy (Intermediate, Uncoded 05/05/23 15:07) redness and inflammation HPI PO-Rt Knee 05/31/23 NE HPI Details 58-year-old female who returns to the office today for post-op right knee , 05/31/[address] Kim. She continues to have swelling and anterior aspect of his knee and calf region. She also c/o soreness in the thigh area. She is able to partial weight bear on her right knee. She has not yet started with physical therapy. She is doing well otherwise and has no concerns today. [facility] Medical History (Updated 05/05/23 @ 15:13 by Sara Silva RN) Arthritis Elevated cholesterol GERD (gastroesophageal reflux disease) Essential hypertension Surgical History Hx of arthroscopy of left knee Hx of foot surgery History of bilateral carpal tunnel release History of lumpectomy of left breast History of total hysterectomy History of cardiac catheterization (~05/16/18) Family History (Updated 05/05/23 @ 15:14 by Sara Silva RN) Father Brain cancer Mother Status post placement of cardiac pacemaker Breast cancer PONV (postoperative nausea and vomiting) Social History Are you a primary healthcare analyst to a significant other at home: No Do you presently have visiting nurse or other home services: No Patient Tobacco Use Status: Never used Tobacco Current occupational status: employed 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 No erythema or drain. ROM is 5-80 degrees. Calf supple, nontender. NVI. Assessment & Plan Assessment & Plan (1) H/O arthroscopy of right knee: Code(s): Z98.890 - Other specified postprocedural states Plan Dr. Kim was available to see the patient with me today. She was instructed on continuing with partial weight bearing and ROM to 0-90 degrees with the brace. She should be sleeping and ambulating with brace on. She can remove the brace for hygiene and physical therapy. Around the 6 weeks kodi, she can maintain full weight bearing and full ROM and discontinue the brace if quad control allows. She was given a copy of physical therapy protocol to bring to her first physical therapy appointment which was made in the office today. She will see us back in [address] Kim, sooner if needed. Patient Instructions: Scribed for Shiva Jimenez PA-C, by Corbin Acosta medical microbiologist, on 06/08/2023 at 10:30 AM EST. I, Shiva Jimenez PA-C, have personally reviewed and agree with the information entered by the scribe. Coding Level of Care Code Global (76327) Diagnoses H/O arthroscopy of right knee Z98.890
[2023-06-08 10:26] VITALS: BMI 33.9
== END 2023-06-08 11:21 | disposition home or self-care (01) ==
PROVIDERS: PCP Internal Medicine; Visit Provider Physician Assistant
DX: Z98.890 Other specified postprocedural states (principal)
CPT/HCPCS: 99024

== ENCOUNTER → 2023-06-08 10:19 | Outpatient (BNVA) | payer OTHER, SELFPAY | PROVIDERS: PCP Internal Medicine; Visit Provider Physician Assistant ==

== ENCOUNTER 2023-07-01 07:56 | Outpatient (REF) | payer OTHER, SELFPAY ==
[2023-07-01 11:06] LABS: MANUAL DIFF FLAG NO
[2023-07-01 11:14] LABS: Basophils Absolute Auto 0.1 X10*3/uL (0.0-0.2); Basophils Percent Auto 1.2 % (0-2); Eosinophils Absolute Auto 0.2 X10*3/uL (0.0-0.4); Eosinophils Percent Auto 3.5 % (0-4); Hematocrit 36.9 % (37.0-47.0); Hemoglobin 12.4 g/dl (12.0-16.0); Imm Gran Abs Auto 0.01 X10*3/uL (0.00-0.03); Imm Gran Pct Auto 0.2 % (0.0-0.4); Lymphocytes Percent Auto 33.9 % (20-40); Mean Corpuscular HGB Conc 33.6 g/dl (31.0-35.0); Mean Corpuscular Hemoglobin 29.7 pg (27.0-33.0); Mean Corpuscular Volume 88.3 fL (80.0-98.0); Mean Platelet Volume 9.9 fL (9.4-12.3); Monocytes Absolute Auto 0.5 X10*3/uL (0.1-1.2); Monocytes Percent Auto 7.8 % (2-11); Neutrophils Absolute Auto 3.2 x10*3/uL (2.0-8.3); Neutrophils Percent Auto 53.4 % (45-73); Platelet Count 290 X10*3/uL (160-400); Red Blood Count 4.18 X10*6/uL (4.20-5.50); Red Cell Distribution Width 12.8 % (11.0-16.0)
[2023-07-01 11:39] LABS: Alanine Aminotransferase 15 U/L (0-31); Albumin Level 4.2 g/dL (3.5-5.0); Alkaline Phosphatase 101 U/L (39-117); Anion Gap 12 (12-20); Aspartate Amino Transferase 19 U/L (5-31); Bilirubin Total 0.6 mg/dL (0.0-1.0); Blood Urea Nitrogen 14 mg/dL (9-16); Calcium 9.1 mg/dL (8.4-10.2); Carbon Dioxide 28 mmol/L (22-29); Chloride 104 mmol/L (96-108); Cholesterol 177 mg/dL (<200); Estimated Glomerular Filt Rate > 60; Glucose Fasting 100 mg/dL (60-99); HDL Cholesterol 44 mg/dL (>40); LDL Cholesterol Calculated 110 mg/dL (<100); Potassium 3.8 mmol/L (3.3-5.1); Sodium 140 mmol/L (135-145); Total Protein 6.8 g/dL (6.5-8.0); Triglycerides 115 mg/dL (<150)
== END 2023-07-01 07:57 | disposition home or self-care (01) ==
LOC: HO.HMGCLDS 07:56
PROVIDERS: PCP Internal Medicine; Visit Provider Internal Medicine
DX: R53.83 Other fatigue (principal); E78.5 Hyperlipidemia, unspecified
CPT/HCPCS: 36415; 80053; 80061; 85025

== ENCOUNTER 2023-07-06 10:02 | Outpatient (AMB) | payer OTHER, SELFPAY ==
--- NOTE | 2023-07-06 10:07 | MHC.OFFVIS ---
Intake Intake Visit Reasons: PO-Rt Knee 05/31/23 NE Intake Note: Stefanie is a 58 year old female who presents today for a 5 week post operative appt s/p right knee , DOS 05/31/23 NE. At her last visit she was instructed to remain PWB with brace 0-90. Patient reports that she is doing okay, she is having significant swelling across the top of the knee and in the back of the knee. Allergies oxycodone [Percocet] Allergy (Intermediate, Verified 05/05/23 15:07) Itchiness LATEX GLUE Allergy (Intermediate, Uncoded 05/05/23 15:07) redness and inflammation HPI PO-Rt Knee 05/31/23 NE HPI Details Stefanie is a 58 year old woman who presents ~5 weeks S/P right knee meniscal root repair. She has been PWB in a locked brace for the last few weeks. She says she is feeling better than before, but she complains of increased swelling in her knee. She also has an area of numbness to the side of her knee. She has been attending PT, which she says is going well. [facility] Medical History (Updated 05/05/23 @ 15:13 by Sara Silva RN) Arthritis Elevated cholesterol GERD (gastroesophageal reflux disease) Essential hypertension Surgical History Hx of arthroscopy of left knee Hx of foot surgery History of bilateral carpal tunnel release History of lumpectomy of left breast History of total hysterectomy History of cardiac catheterization (~05/16/18) Family History (Updated 05/05/23 @ 15:14 by Sara Silva RN) Father Brain cancer Mother Status post placement of cardiac pacemaker Breast cancer PONV (postoperative nausea and vomiting) Social History Are you a primary transitional care liaison to a significant other at home: No Do you presently have visiting nurse or other home services: No Patient Tobacco Use Status: Never used Tobacco Current occupational status: employed 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[employer] Review of Systems Const All systems reviewed & are unremarkable except as noted in HPI and below Physical Exam Const General: no acute distress, alert and awake Orientation/consciousness: patient oriented x3 HEENT Head: Yes normocephalic and Yes atraumatic Eyes EOM: EOMs intact bilaterally Resp Effort & Inspection: normal respiratory effort and able to speak in complete sentences Cardio Jugular venous distension: no JVD Skin General skin exam: turgor normal Rashes: no rashes Neuro General: patient oriented x3 Extrem Other: Right Knee: Well healed portals Psych Appearance: grossly normal Affect: normal affect Attitude: cooperative Assessment & Plan Assessment & Plan (1) H/O arthroscopy of right knee: Code(s): Z98.890 - Other specified postprocedural states Plan: This is a 58 year old woman S/P right meniscal root repair, DOS: 05/31/23. She is doing well overall, and has been PWB with a locked knee brace. She has some increased effusion in her knee, which is likely attributed to wearing her brace. She will PWB with her brace for 1 more week before discontinuing. I recommend she continue with PT and activity as tolerated, she should avoid any running or jumping activities for the next few weeks. She will follow up in 6 weeks. (2) Effusion, right knee: Code(s): M25.461 - Effusion, right knee Plan Scribed for Antony Kim MD by Denis Marie, medical physiologist, on 07/06/23 at 10:20 AM, EST. Coding Level of Care Code Global (33263) Diagnoses H/O arthroscopy of right knee Z98.890 Effusion, right knee M25.461
== END 2023-07-06 10:50 | disposition home or self-care (01) ==
PROVIDERS: PCP Internal Medicine; Visit Provider Orthopaedic Surgery
DX: Z98.890 Other specified postprocedural states (principal); M25.461 Effusion, right knee
CPT/HCPCS: 99024

== ENCOUNTER → 2023-07-06 10:02 | Outpatient (BNVA) | payer OTHER, SELFPAY | PROVIDERS: PCP Internal Medicine; Visit Provider Orthopaedic Surgery ==

== ENCOUNTER 2023-07-27 15:47 | Outpatient (REF) | payer OTHER, SELFPAY | END 2023-07-27 15:48 | disposition home or self-care (01) | LOC: HO.MAMMO 15:47 | PROVIDERS: PCP Internal Medicine; Visit Provider Internal Medicine | DX: Z12.31 Encounter for screening mammogram for malignant neoplasm of breast (principal) | CPT/HCPCS: 77063; 77067 ==

== ENCOUNTER → 2023-07-27 16:00 | Outpatient (BNV) | payer OTHER, SELFPAY | PROVIDERS: PCP Internal Medicine; Visit Provider Radiology Diagnostic Radiology | DX: Z12.31 Encounter for screening mammogram for malignant neoplasm of breast (principal) | CPT/HCPCS: 77063; 77067 ==

== ENCOUNTER 2023-08-03 12:10 | Outpatient (AMB) | payer OTHER, SELFPAY ==
--- NOTE | 2023-08-03 12:14 | MHC.OFFVIS ---
Intake Intake Visit Reasons: PO-Rt Knee 05/31/23 NE Intake Note: Stefanie is a 58 year old female who presents today for a post operative appt s/p right knee , DOS 05/31/23 NE. Patient reports that she is doing well overall, she has some aching of the knee but she is unsure if this is realted to surgery or underlying arthritis. Allergies oxycodone [Percocet] Allergy (Intermediate, Verified 05/05/23 15:07) Itchiness LATEX GLUE Allergy (Intermediate, Uncoded 05/05/23 15:07) redness and inflammation HPI PO-Rt Knee 05/31/23 NE HPI Details Stefanie is a 58 year old woman who presents ~2 months S/P right knee meniscal root repair. She is doiong well She still cannot kneel but otherwise minimal pain PFSH Medical History (Updated 05/05/23 @ 15:13 by Sara Silva RN) Arthritis Elevated cholesterol GERD (gastroesophageal reflux disease) Essential hypertension Surgical History Hx of arthroscopy of left knee Hx of foot surgery History of bilateral carpal tunnel release History of lumpectomy of left breast History of total hysterectomy History of cardiac catheterization (~05/16/18) Family History (Updated 05/05/23 @ 15:14 by Sara Silva RN) Father Brain cancer Mother Status post placement of cardiac pacemaker Breast cancer PONV (postoperative nausea and vomiting) Social History Are you a primary nurse wound care to a significant other at home: No Do you presently have visiting nurse or other home services: No Comment: aware of trip hazard Patient Tobacco Use Status: Never used Tobacco Current occupational status: employed 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 Review of Systems Const All systems reviewed & are unremarkable except as noted in HPI and below Physical Exam Const General: no acute distress, alert and awake Orientation/consciousness: patient oriented x3 HEENT Head: Yes normocephalic and Yes atraumatic Eyes EOM: EOMs intact bilaterally Resp Effort & Inspection: normal respiratory effort and able to speak in complete sentences Cardio Jugular venous distension: no JVD Skin General skin exam: turgor normal Rashes: no rashes Neuro General: patient oriented x3 Extrem Other: inc c/d/i Psych Appearance: grossly normal Affect: normal affect Attitude: cooperative Assessment & Plan Assessment & Plan (1) Tear of medial meniscus of right knee: Code(s): S83.241A - Other tear of medial meniscus, current injury, right knee, initial encounter Plan: Doingw ell COntinue strengthening and work modifications f/u 6 weeks Plan Scribed for Antony Kim MD by Denis Marie, medical instrument cable fabricator, on 08/03/23 at 12:40 PM, EST. Coding Level of Care Code Global (43611) Diagnoses Tear of medial meniscus of right knee S83.241A
== END 2023-08-03 12:54 | disposition home or self-care (01) ==
PROVIDERS: PCP Internal Medicine; Visit Provider Orthopaedic Surgery
DX: S83.241A Other tear of medial meniscus, current injury, right knee, initial encounter (principal)
CPT/HCPCS: 99024

== ENCOUNTER → 2023-08-03 12:10 | Outpatient (BNVA) | payer OTHER, SELFPAY | PROVIDERS: PCP Internal Medicine; Visit Provider Orthopaedic Surgery ==

== ENCOUNTER 2023-08-17 07:40 | Outpatient (REF) | payer OTHER, SELFPAY ==
--- NOTE | ~2023-08-17 | CT_ITS ---
CT SINUS WITHOUT CONTRAST HISTORY: Sinusitis TECHNIQUE: CT images of the paranasal sinuses were acquired without contrast. This CT examination was performed using dose optimization techniques as appropriate, variously including the following: *Automated exposure control *Adjustment of mA and/or kV according to patient size (this includes techniques or standardized protocols for targeted exams where dose is matched to indication/reason for exam; i.e. extremities or head) *Use of iterative reconstruction technique DLP: 115.61 mGy-cm COMPARISON: None available FINDINGS: NASAL CAVITY: Leftward nasal septal deviation with leftward bony spur. There is soft tissue opacification of the right upper nasal cavity inclusive of the right olfactory recess, obscuring assessment of the cribriform plate, may reflect the presence of a nasal polyp at this location and can be correlated with direct inspection. The olfactory fossa are symmetric. No evidence of Keros type III cribriform plate (lateral lamella 8-16 mm). FRONTAL SINUS: LEFT: Clear with patent frontal sinus drainage pathway. RIGHT: Clear with patent frontal sinus drainage pathway. MAXILLARY SINUS: LEFT: Trace mucosal disease in the alveolar recess. with patent osteomeatal unit. RIGHT: Negligible mucosal disease alveolar recess. with patent osteomeatal unit. ETHMOID AIR CELLS: LEFT: Clear RIGHT: Clear Lamina papyracea: Intact. Anterior ethmoid canals do not traverse through the ethmoid air cells. SPHENOID SINUS: LEFT: Clear with patent ostium and sphenoethmoidal recess. RIGHT: Largely clear, noting a mucosal septation traverses the ostium. Patent sphenoethmoidal recess. The sphenoid septum does not insert onto the carotid canal. Sphenoethmoidal (Onodi) cell: None. OTHER: Normal appearance of the orbits. The carotid canals are covered by bone. Densely sclerotic lesion along the right mandibular condyle head, presumed bone island. The mastoid air cells and middle ear cavities are well aerated. Limited evaluation of the intracranial structures without significant abnormalities. 3 mm dermal-based nodule within the upper medial left preseptal soft tissues. Elongated and ossified styloid processes can be correlated clinically for signs of Bosque syndrome. CT/CT sinus wo IV con IMPRESSION: 1. Leftward nasal septal deviation with leftward bony spur. Soft tissue opacification of the right upper nasal cavity inclusive of the right olfactory recess, obscuring assessment of the cribriform plate, may reflect the presence of a nasal polyp at this location and can be correlated with direct inspection. 2. Otherwise no significant paranasal sinus mucosal disease. 3. Elongated and ossified styloid processes can be correlated clinically for signs of Bosque syndrome.
== END 2023-08-17 07:41 | disposition home or self-care (01) ==
LOC: HO.CT 07:40
PROVIDERS: PCP Internal Medicine; Visit Provider Internal Medicine
DX: J01.11 Acute recurrent frontal sinusitis (principal)
CPT/HCPCS: 70486

== ENCOUNTER 2023-09-04 10:00 | Outpatient (RCR) | payer OTHER, SELFPAY ==
[2023-06-13 11:07] VITALS: BP 142/82; PULSE 54
--- NOTE | 2023-06-13 12:06 | MHC.PT.EP ---
[facility] [place] Office [place] Office [place] Office [address] Vivien Arita [address] [phone] F: [phone] F: [phone] F: [phone] F: [phone] Physical Therapy Plan of Care Date of Evaluation: 06/13/23 Date of Surgery: 05/31/23 Diagnosis: Other tear of medial meniscus, current injury, R knee, initial encounter R Knee - 05/31 Assessment: Stefanie is a 58 year old female who is referred to PT for Other tear of medial meniscus, current injury, R knee, initial encounter, R Knee - 05/31 . She is 13 days post op today. She had insidious onset of pain about 2.5 months back. Her pain got worse progressively and about 2 months back she heard pop while negotiating stairs. She was not able to weight bear after. MRI revealed medial meniscus root tear. She had surgery for the same. On PT examination she presented with TTP along lateral joint line, inferior pole of patella, decreased knee ROM, decreased R LE strength, altered posture, balance, and gait. She lives with her . She is independent with self care activities but her does all IADLS. 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 She would benefit from PT to address the aforementioned impairments in order to improve tolerance to functional activities. Frequency and Duration: The patient will be seen 2/week for 10 weeks Short Term Goals: 1. Pt will have 50% decrease in pain which will enable her to stand and walk PWB with walker without pain in 2 weeks. 2. Pt will be able to move knee from 0-90 degrees without pain and assistance in 4 weeks. [facility] Goals: 1. Pt will be able to ambulate WBAT with knee brace and without walker in 5 weeks. 2. Pt will demonstrate good quad control which will enable her to ambulate without brace in 8 weeks. 3. Pt will have all knee ROM WNL which will enable her to negotiate stairs in 10 weeks 4. Pt will be independent with HEP and return to PLOF in 12 weeks. Treatment Plan: Modalities to reduce pain, spasms and effusion. Manual therapy to restore motion and function. Therapeutic exercise to improve strength and flexibility. Neuromuscular re-education for posture and balance. Therapeutic activities to return to functional activities of daily living. Electronically signed by: Betty Sweet PT DPT Please sign and return to therapist. Thank you for your referral.
--- NOTE | 2023-09-11 15:09 | MHC.PT.DC ---
[facility] [place] Office [place] Office [place] [facility] [address] Vivien Arita [address] [phone] F: [phone] F: [phone] F: [phone] F: [phone] Physical Therapy Discharge Report Diagnosis: Other tear of medial meniscus, current injury, R knee, initial encounter R Knee - 05/31 Date of Surgery: 05/31/23 Date of Evaluation: 06/13/23 Date of Discharge: 09/11/23 Treatments to Date: 21 Cancellations to Date: 1 No Shows to Date: 0 Discharge Status: Achieved Goals Improved Function Independent with HEP Discharge Summary: Stefanie completed 21 PT visits and made significant improvements. She has achieved all goals set for her. She is independent with all her HEP as well. She is therefore being d/c from PT. Electronically signed by: Betty Sweet PT DPT Please sign and return to therapist. Thank you for your referral.
== END 2023-09-11 15:09 | disposition home or self-care (01) ==
LOC: HO.PT 10:00
PROVIDERS: PCP Internal Medicine; Visit Provider Physician Assistant
DX: S83.241D Other tear of medial meniscus, current injury, right knee, subsequent encounter (principal)
CPT/HCPCS: 97110; 97112; 97116; 97140; 97161; 97530

== ENCOUNTER 2023-09-14 09:04 | Outpatient (AMB) | payer OTHER, SELFPAY ==
--- NOTE | 2023-09-14 07:48 | A.OFFVIS_ITS ---
Intake Vital Signs 09/14/23 09:13 Height 5 ft 5.5 in Weight 210 lb BMI 34.4 Intake Visit Reasons: OV-Rt Knee 05/31/23 NE-follow up Intake Note: Stefanie is a 58 year old female who presents today for a post operative appt s/p right knee , DOS 05/31/23 NE. She reports she is feeling well. Allergies oxycodone [Percocet] Allergy (Intermediate, Verified 09/14/23 09:13) Itchiness LATEX GLUE Allergy (Intermediate, Uncoded 09/14/23 09:13) redness and inflammation Medication List - Last Reconciled 09/14/23 by Glenis Mace RN ascorbic acid (vitamin C) 1 g PO DAILY atorvastatin 10 mg PO DAILY losartan 50 mg PO DAILY metoprolol succinate ER 100 mg PO DAILY multivitamin 1 tab PO DAILY omega-3 fatty acids (Fish Oil Concentrate) 1,000 mg PO DAILY omeprazole 20 mg PO DAILY [Probiotic ] [zinc ] HPI OV-Rt Knee 05/31/23 NE-follow up HPI Details Stefanie is a 58 year old woman who presents ~3 1/2 months S/P right knee meniscal root repair. She says she is doing well and is happy with the results of her surgery. She has completed her course of PT and says this went well. [facility] Medical History (Updated 05/05/23 @ 15:13 by Sara Silva RN) Arthritis Elevated cholesterol GERD (gastroesophageal reflux disease) Essential hypertension Surgical History Hx of arthroscopy of left knee Hx of foot surgery History of bilateral carpal tunnel release History of lumpectomy of left breast History of total hysterectomy History of cardiac catheterization (~05/16/18) Family History (Updated 05/05/23 @ 15:14 by Sara Silva RN) Father Brain cancer Mother Status post placement of cardiac pacemaker Breast cancer PONV (postoperative nausea and vomiting) Social History Are you a primary health care aide to a significant other at home: No Do you presently have visiting nurse or other home services: No Comment: aware of trip hazard Patient Tobacco Use Status: Never used Tobacco Current occupational status: employed 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 Review of Systems Const All systems reviewed & are unremarkable except as noted in HPI and below Physical Exam Vital Signs: BMI result Body Mass Index 34.4 Const General: no acute distress, alert and awake Orientation/consciousness: patient oriented x3 HEENT Head: Yes normocephalic and Yes atraumatic Eyes EOM: EOMs intact bilaterally Resp Effort & Inspection: normal respiratory effort and able to speak in complete sentences Cardio Jugular venous distension: no JVD Skin General skin exam: turgor normal Rashes: no rashes Neuro General: patient oriented x3 Extrem Other: Full rom right knee TTP retropatellar facet right knee Psych Appearance: grossly normal Affect: normal affect Attitude: cooperative Assessment & Plan Assessment & Plan (1) Tear of medial meniscus of right knee: Code(s): S83.241A - Other tear of medial meniscus, current injury, right knee, initial encounter Plan: Doing very well Continue to be cautious (2) Osteoarthritis of right knee: Code(s): M17.11 - Unilateral primary osteoarthritis, right knee Plan: Patellofemoral OA. Activity modification as needed. Coding Level of Care Code Global (16570) Diagnoses Tear of medial meniscus of right knee S83.241A Osteoarthritis of right knee M17.11
[2023-09-14 09:13] VITALS: BMI 34.4
== END 2023-09-14 09:38 | disposition home or self-care (01) ==
PROVIDERS: PCP Internal Medicine; Visit Provider Orthopaedic Surgery
DX: S83.241D Other tear of medial meniscus, current injury, right knee, subsequent encounter (principal); M17.11 Unilateral primary osteoarthritis, right knee
CPT/HCPCS: 99212

== ENCOUNTER → 2023-09-14 09:04 | Outpatient (BNVA) | payer OTHER, SELFPAY | PROVIDERS: PCP Internal Medicine; Visit Provider Orthopaedic Surgery ==

== ENCOUNTER 2024-08-01 15:28 | Outpatient (REF) | payer OTHER, SELFPAY ==
--- NOTE | ~2024-08-01 | MM_ITS ---
EXAMINATION: MM SCREENING DIGITAL BREAST TOMOSYNTHESIS, BILATERAL CLINICAL INFORMATION: Screening. Asymptomatic. COMPARISON: Mammography: Comparison is made with available priors TECHNIQUE: Digital breast mammography with tomosynthesis is performed in both the craniocaudal and mediolateral oblique views along with computer-aided detection (CAD). FINDINGS: The breasts are heterogeneously dense, which may obscure small masses (ACR BI-RADS breast composition Category c). Left: Focal asymmetry upper outer breast posterior depth. No suspicious calcifications or other abnormal findings. Right: Asymmetry lateral breast middle depth on CC view. No suspicious calcifications or other abnormal findings. MM/MM tomosynthesis screening BI IMPRESSION: Additional imaging is recommended ASSESSMENT: BI-RADS BI-RADS 0 - Incomplete: Needs additional Imaging. RECOMMENDATION: 1. Additional views of the bilateral breasts 2. Targeted ultrasound if warranted after review of the additional views. 3. Radiology department staff will contact the patient for additional imaging. Additional Imaging required This examination should not preclude the clinical evaluation of a suspicious palpable abnormality. This patient's information was entered into a reminder system with a target due date for their next mammogram. Electronically signed by: No Lanier DO 08/07/2024 03:32 PM BINU
--- OUTSIDE RECORDS SUMMARY | 2024-08-07 04:18 | XMS_ITS ---
[facility] Name [facility] Unknown History of Medication Use Medication Directions Dispensed Refills Start Date End Date [facility] estradioL (ESTRACE) 0.01 % (0.1 mg/gram) vaginal cream APPLY 0.5 GRAM VAGINALLY 3 TIMES A WEEK 07/07/2024 08/27/9999 active docusate sodium (COLACE) 100 mg capsule Take 1 capsule (100 mg total) by mouth 2 (two) times a day. 07/07/2024 08/27/9999 active magnesium oxide 500 mg magnesium tablet Take by mouth. 07/07/2024 08/27/9999 a ctive omeprazole (PriLOSEC) [address] capsule 07/07/2024 08/27/9999 active acetaminophen (TYLENOL 8 HOUR) 650 mg 8 hr tablet Take 1 Tablet by mouth 3 times daily for 10 days. 07/07/2024 08/27/9999 active atorvastatin (LIPITOR) 10 mg tablet Take 10 mg by mouth daily. 07/07/2024 08/27/9999 active ibuprofen (ADVIL,MOTRIN) 600 mg tablet Take 1 Tablet by mouth 2 times daily for 10 days. 07/07/2024 08/27/9999 active ibuprofen (ADVIL,MOTRIN) 800 mg tablet Take 1 tablet (800 mg total) by mouth every 8 (eight) hours if needed. 07/07/2024 08/27/9999 active HYDROcodone-acetamino phen (NORCO) 5-325 mg per tablet Take 1 Tablet by mouth every 6 hours as needed for Pain for up to 10 doses. 07/07/2024 08/27/9999 active traMADoL (ULTRAM) 50 mg tablet Take 1 tablet (50 mg total) by mouth every 6 (six) hours if needed. Max Daily Amount: 200 mg 07/07/2024 08/27/9999 active estradioL (Flori) 0.1 mg/24 hr Apply 1 patch topically 2 (two) times a week. 07/07/2024 08/27/9999 active lisinopriL (PRINIVIL,ZESTRIL) 10 mg tablet Take 20 mg by mouth daily. 07/07/2024 08/27/9999 active acetaminophen (TYLENOL) 500 mg tablet Take 1 tablet (500 mg total) by mouth every 8 (eight) hours if needed. 07/07/2024 08/27/9999 active predniSONE (DELTASONE) 5 mg tablet Take 5 mg by mouth daily. 07/07/2024 08/27/9999 active BABY ASPIRIN ORAL Take by mouth. 07/07/202407/30 active metoprolol succinate (TOPROL-XL) 100 mg 24 hr tablet Take 100 mg by mouth daily. 07/07/2024 08/27/9999 active trospium 60 mg capsule,extended release 24hr Take 1 capsule (60 mg total) by mouth 1 (one) time each day. 07/07/2024 08/27/9999 active Problems Problem Status Onset Date Problem Type Date of Resolution Source Primary osteoarthritis of first carpometacarpal joint of right hand active 2022-02-[address] [facility] Mixed stress and urge urinary incontinence active 2023-01-26 ProblemAct [facility] Hot flashes active 2023-01-26 ProblemAct [facility]AI Vaginal atrophy active 2023-01-[address] [facility] Hypertension active 2021-04-20 ProblemAct [facility]AN Varicose veins with pain active 2018-12-06 ProblemAct [facility] UTI symptoms active EncounterDiagnosisAct [facility] Right carpal tunnel syndrome active 2022-02-23 ProblemAct [facility] Diverticulosis active 2017-01-[address] [facility]
== END 2024-08-01 15:29 | disposition home or self-care (01) ==
LOC: HO.MAMMO 15:28
PROVIDERS: PCP Internal Medicine; Visit Provider Internal Medicine
DX: Z12.31 Encounter for screening mammogram for malignant neoplasm of breast (principal)
CPT/HCPCS: 77063; 77067

== ENCOUNTER → 2024-08-01 15:45 | Outpatient (BNV) | payer OTHER, SELFPAY | PROVIDERS: PCP Internal Medicine; Visit Provider Internal Medicine | DX: Z12.31 Encounter for screening mammogram for malignant neoplasm of breast (principal) | CPT/HCPCS: 77063; 77067 ==

== ENCOUNTER 2024-09-05 08:36 | Outpatient (REF) | payer OTHER, SELFPAY ==
--- NOTE | ~2024-09-05 | MM_ITS ---
EXAMINATION: MM DIAGNOSTIC DIGITAL BREAST TOMOSYNTHESIS, BILATERAL Limited bilateral ultrasound. CLINICAL INFORMATION: Call back from screening for bilateral asymmetries. COMPARISON: Mammography: Comparison is made with relevant prior exams. TECHNIQUE: Digital breast mammography with tomosynthesis is performed in both the craniocaudal and mediolateral oblique views along with computer-aided detection (CAD). Limited bilateral ultrasound. FINDINGS: The breasts are heterogeneously dense, which may obscure small masses (ACR BI-RADS breast composition Category c). Right: Previously seen asymmetry in the lateral right breast posterior depth on CC view does not persist on additional imaging projections and likely represented overlapping breast tissue. No suspicious calcifications or other abnormal findings. Targeted color Doppler ultrasound scanning in the lateral right breast from 7-11 o'clock demonstrates an incidental hypoechoic oval solid mass versus complicated cyst at 10:00 6 cm from nipple measuring 6 x 4 x 7 mm. This is incidental. Otherwise scanning in the lateral breast from 7-11 o'clock demonstrates normal fibroglandular breast tissue. Left: Focal asymmetry in the upper outer breast effaces on additional imaging projections and likely represented overlapping breast tissue. Post surgical scarring in the upper outer quadrant is noted. No suspicious calcifications or other abnormal findings. Targeted color Doppler ultrasound scanning in the left upper outer quadrant demonstrates normal fibroglandular breast tissue. There is no sonographic abnormality. Results are provided to the patient at time of visit by the technologist. MM/MM tomosynthesis diagnostic BI IMPRESSION: Right: Solid mass versus complicated cyst on ultrasound at 10:00. Recommend 6 month follow-up ultrasound for further evaluation of stability. Left: Benign. ASSESSMENT: BI-RADS BI-RADS 3 - Probably benign finding(s) - 6 month follow-up suggested RECOMMENDATION: 6 Month F/U This patient's information was entered into a reminder system with a target due date for their next mammogram. Electronically signed by: No Lanier DO 09/05/2024 09:55 AM BINU
== END 2024-09-05 08:37 | disposition home or self-care (01) ==
LOC: HO.MAMMO 08:36
PROVIDERS: PCP Internal Medicine; Visit Provider Internal Medicine
DX: N64.89 Other specified disorders of breast (principal)
CPT/HCPCS: 76642; 77062; 77066

== ENCOUNTER → 2024-09-05 09:00 | Outpatient (BNV) | payer OTHER, SELFPAY | PROVIDERS: PCP Internal Medicine; Visit Provider Internal Medicine | DX: R92.8 Other abnormal and inconclusive findings on diagnostic imaging of breast (principal) | CPT/HCPCS: 76642; 77062; 77066 ==

== ENCOUNTER 2024-12-09 08:20 | Outpatient (AMB) | payer OTHER, SELFPAY ==
[2024-12-09 08:23] VITALS: BMI 34.9
--- NOTE | 2024-12-09 08:23 | MHC.OFFVIS ---
Vital Signs 12/09/24 08:23 Height 5 ft 5 in Weight 210 lb BMI 34.9 Intake Visit Reasons: OV - Left Knee OA - 03/2023 Intake Note: Stefanie is a 59 year old female who presents today for a follow up of her Left Knee OA. Hx Left Knee 06/2019 KI. Hx of left knee Injection in March of 2023. Patient reports that she is uncomfortable. She has trouble with gait initiation. the knee will also buckle from under her while walking occasionally. She also complains that she feels a fullness and pain in the posterior aspect of the knee. She is taking Ibuprofen 800mg and Tylenol 650mg which does help but she does not want to take this technician terminal and repeater. She also reports recent onset of pain in the lower back, she is unsure the cause of this but feels that her gait changes may have effected this. Allergies oxycodone [Percocet] Allergy (Intermediate, Verified 12/09/24 08:26) Itchiness LATEX GLUE Allergy (Intermediate, Uncoded 12/09/24 08:26) redness and inflammation HPI HPI OV - Left Knee OA - 03/2023: Details: Left knee pain with ambulation. Cannot walk comfortably. limps all day long. Sits constantly. Overall its been several years with prior arthroscopy with Dr. Fritz. She has only had minimal benefit with steroids. Worried about needles but considering viscosupplementation. [facility] Medical History (Updated 05/05/23 @ 15:13 by Sara Silva RN) Arthritis Elevated cholesterol GERD (gastroesophageal reflux disease) Essential hypertension Surgical History (Updated 12/09/24 @ 08:28 by Raina Roach CMA) History of bladder surgery (~06/2024) Hx of arthroscopy of left knee Hx of foot surgery History of bilateral carpal tunnel release History of lumpectomy of left breast History of total hysterectomy History of cardiac catheterization (~05/16/18) Family History (Updated 05/05/23 @ 15:14 by Sara Silva RN) Father Brain cancer Mother Status post placement of cardiac pacemaker Breast cancer PONV (postoperative nausea and vomiting) Social History Are you a primary senior care assistant to a significant other at home: No Do you presently have visiting nurse or other home services: No Comment: aware of trip hazard Patient Tobacco Use Status: Never used Tobacco Current occupational status: employed 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 I have recommended viscosupplementation. I will contact her when it has been approved. Orders: Orders XR knee LT 3V Today M25.562 - Pain in left knee Coding Level of Care Code Est Pt Level 3 (14809) Diagnoses Osteoarthritis of left knee M17.12
--- OUTSIDE RECORDS SUMMARY | 2024-12-09 08:41 | XMS_ITS | Clinical Summary ---
Author Organization [facility] Address [address] [place] [address] Care Team Providers Care Regrader Name Role Phone Dung Briceño MD Primary Care Provider [phone] Allergies Active Allergy Reactions Criticality Noted Date Comments Oxycodone 02/13/2019 itching Medications acetaminophen (TYLENOL 8 HOUR) 650 mg 8 hr tablet Take 1 Tablet by mouth 3 times daily for 10 days. 2 Active acetaminophen (TYLENOL) 500 mg tablet Take 1 tablet (500 mg total) by mouth every 8 (eight) hours if needed. 4 Active ASCORBIC ACID, VITAMIN C, ORAL Take by mouth. Active atorvastatin (LIPITOR) 10 mg tablet Take 10 mg by mouth daily. Active calcium carbonate/vitam in D3 (CALCIUM CARBONATE-VITAM IN D PO) Take by mouth. Activ e docusate sodium (COLACE) 100 mg capsule Take 1 capsule (100 mg total) by mouth 2 (two) times a day. 4 Active estradioL (ESTRACE) 0.01 % (0.1 mg/gram) vaginal cream APPLY 0.5 GRAM VAGINALLY 3 TIMES A WEEK 4 Active docosahexaenoic acid/epa (FISH OIL ORAL) by Does not apply route. Active HYDROcodone-douglas taminophen (NORCO) 5-325 mg per tablet Take 1 Tablet by mouth every 6 hours as needed for Pain for up to 10 doses. 2 Active ibuprofen (ADVIL,MOTRIN) 800 mg tablet Take 1 tablet (800 mg total) by mouth every 8 (eight) hours if needed. 4 Active magnesium oxide 500 mg magnesium tablet Take by mouth. Activ e metoprolol succinate (TOPROL-XL) 100 mg 24 hr tablet Take 100 mg by mouth daily. Active omeprazole (PriLOSEC) [address] capsule 8 Active POLYETHYLENE GLYCOL 3350 ORAL Take 17 g by mouth daily. 4 Active calcium carb/vit D3/minerals (CALCIUM-VITAMI N D ORAL) Take by mouth. Activ e vibegron (GEMTESA) 75 mg tablet tablet Take 1 tablet (75 mg total) by mouth 1 (one) time each day. 75 each 4 4 Active Active Problems Problem Noted Date Diagnosed Date Hot flashes 01/26/2023 Overview (06/09/2024): Last Assessment & Plan: Stefanie was counseled that restarting HRT at this time is not a safe option given >20 years since hysterectomy and uncontrolled HTN. We discussed alternative treatment options including low dose paxil or gabapentin but she is not interested in either of these options. She will try to increase soy content in her diet. Mixed stress and urge urinary incontinence 01/26 Overview (06/09/2024): Last Assessment & Plan: UA negative. Reviewed behavioral modifications including timed voiding, kegel exercises, and avoiding bladder irritants. Referral to urogynecology placed. Vaginal atrophy 01/26/2023 Overview (06/09/2024): Last Assessment & Plan: Rx vaginal estradiol provided today. Primary osteoarthritis of fi rst carpometacarpal joint of right hand 02/23/2022 Right carpal tunnel syndrome 02/23/2022 Hypertension 04/20/2021 Overview (06/09/2024): Last Assessment & Plan: BP elevated despite taking medications this morning. Has BP check with PCP today. Chronic fatigue 07/06/2020 Myalgia 07/06/2020 Neck pain 07/06/2020 Plantar fasciitis of left foot 07/06/2020 Primary osteoarthritis involving multiple joints 07/06/2020 Vitamin D insufficiency 07/06/2020 Varicose veins with pain 12/06/2018 Diverticulosis 01/20/2017 Overview (06/09/2024): Incidental finding at colonoscopy 01/20/2017. Encounters Date Type Department Care Team Description 11/07/2024 9:00 AM EDT Office Visit Urogynecology [address] [address] Nya Foy, NIKO Urinary urgency (Primary Dx); Hot flashes due to menopause from Last 3 Months Surgical History Surgery Date Site/Laterality Comments OTHER SURGICAL HISTORY PROCEDURE: HISTORICAL PELVISCOPY VAGINAL DELIVERY PROCEDURE: [place] VAGINAL DELIVERY ONLY; COMMENT: x3 OTHER SURGICAL HISTORY 2001 PROCEDURE: [place] TOTAL ABDOMINAL HYSTERECT W/WO RMVL TUBE OVARY; COMMENT: w/ BSO FOOT SURGERY 2005 Right PROCEDURE: HISTORICAL FOOT SURGERY; COMMENT: for plantar fasciitis BREAST LUMPECTOMY 1998 Left PROCEDURE: HISTORICAL BREAST LUMPECTOMY; COMMENT: benign COLONOSCOPY 01/20/2017 PROCEDURE: HISTORICAL COLONOSCOPY; COMMENT: Diverticulosis; otherwise negative screening examination. Medical History Medical History Date Comments Heartburn DX:Heartburn Endometriosis, site unspecified DX:Endometriosis, site unspecified Hypercholesteremia DX:Hyperchole steremia Diverticulosis 01/20/2017 DX:Diverticulosi s; COMMENT: Incidental finding at colonoscopy 01/20/2017. Genetic screening 06/2017 DX:Genetic scr eening; COMMENT: Not at increased risk for breast cancer Primary osteoarthritis of fi rst carpometacarpal joint of right hand 02/23/2022 DX:Primary osteoar thritis of first carpometacarpal joint of right hand Family History Medical History Relation Name Comments Heart failure Father Hyperlipidemia Father Other: ca brain Father Other: ca brain Maternal Grandmother Breast cancer Mother now bilateral; other breast at age 72 Hyperlipidemia Mother Other: atrial fib Mother Breast cancer Mother's side mom's sister Hypertension Sister 1 Thyroid disease Sister 2 Other: ca brain Uncle Cancer of Small Bowel Neg Hx Colon cancer Neg Hx Kidney cancer Neg Hx Ovarian cancer Neg Hx Pancreatic cancer Neg Hx Uterine cancer Neg Hx Relation Name Status Comments Brother Alive Daughter 1 Alive Daughter 2 Alive Father (Age 70) Brain tumo r Maternal Grandfather Maternal Grandmother Mother Alive Mother's side Paternal Grandfather Paternal Grandmother Sister 1 Sister 2 Sister 3 Alive Sister 4 Alive Son Alive Uncle Social History Tobacco Use Types Packs/Day Years Used Date Smoking Tobacco: Former Cigarettes Q uit: 12/21/1981 Smokeless Tobacco: Never Tobacco Cessation:Counseling Given: Not Answered Alcohol Use Standard Drinks/Week Comments Yes 0 [...] care for your loved ones. For example, vocational childcare teacher or elderly care for an older adult? [...] on file Sexual Orientation Not on file Obstetrics History Last Filed Vital Signs Vital Sign Reading Time Taken Comments Blood Pressure 159/93 11/07/2024 8:44 AM EDT Pulse 57 11/07/2024 8:44 AM EDT Temperature - - Respiratory Rate 14 11/07/2024 8:44 AM EDT Oxygen Saturation - - Inhaled Oxygen Concentration - - Weight 101 kg (222 lb 6.4 oz) 11/07/2024 8:44 AM EDT Height 166.4 cm (5' 5.5 ) 07/22/2024 2:28 PM EST Body Mass Index 36.45 07/22/2024 2:28 PM EST Plan of Treatment Upcoming Encounters Date Type Department Care Team (Late st Contact Info) Description 12/13/2024 8:45 AM EDT Office Visit Obstetrics and Gynecology [address] [phone] Tali Willson MD [address] [place], [place] Health Maintenance Due Date Last Done Comments Breast Cancer Screening 1965 Hepatitis B Vaccines (1 of 3 - 19+ 3-dose series) 1985 Cervical Cancer Screening: P ap Smear 1987 Pneumococcal Vaccine: 50+ Years (1 of 1 - PCV) 01/24/2016 Zoster Vaccines (1 of 2) 01/24/2016 Cholesterol Screening (Lipid Panel) 07/30/2022 HIV Screening 07/30/2022 Hepatitis C Screening 07/30/2022 Hypertension/CHF/CAD Annual BMP Blood Test 08/11/2022 COVID-19 Vaccine ( - 2023-2 5 season) 2024 07/23/2021, 10/22/2020, 10/01/2020 DTaP,Tdap,and Td Vaccines (2 - Td or Tdap) 10/25/2025 10/25/2015 Depression Screening 12/07/2025 12/07/2024 Social Influencers of Health Screening 12/07/2025 12/07/2024 Colorectal Cancer Screening: Colonoscopy 01/20/2027 01/20/2017 Influenza Vaccine Completed 06/15/2024, 06/17/2023, 06/11/2022 HIB Vaccines Aged Out No longer eligi ble based on patient's age to complete this topic HPV Vaccines Aged Out No longer eligi ble based on patient's age to complete this topic Hepatitis A Vaccines Aged Out No long er eligible based on patient's age to complete this topic IPV Vaccines Aged Out No longer eligi ble based on patient's age to complete this topic MMR Vaccines Aged Out No longer eligi ble based on patient's age to complete this topic Meningococcal ACWY Vaccine Aged Out N o longer eligible based on patient's age to complete this topic Meningococcal B Vaccine Aged Out No l onger eligible based on patient's age to complete this topic Pneumococcal Vaccine: Pediatrics (0 to 5 Years) and At-Risk Patients (6 to 64 Years) Aged Out No longer eligible b ased on patient's age to complete this topic RSV Immunization Patients Under 20 months Aged Out No longer eligible b ased on patient's age to complete this topic Varicella Vaccines Aged Out No longer eligible based on patient's age to complete this topic Procedures Procedure Name Priority Date/Time Associated Diagnosis Comments COLONOSCOPY Routine 01/20/2017 from Last 3 Months or Most Recently Relevant to Health Maintenance Results * Colonoscopy (01/20/2017) Colonoscopy NO INTERPRETATION , ABSTRACTED Anatomical Region Laterality Modality Other Historical Provider HEALTH MAINTENANCE Final Result from Last 3 Months or Most Recently Relevant to Health Maintenance Insurance Care Teams Regrader Relationship Specialty Start Date End Date Dung Briceño MD [address] [place] [address] PCP - General 03/05/04
--- OUTSIDE RECORDS SUMMARY | 2024-12-09 08:41 | XMS_ITS | Encounter Summary ---
Author Organization [facility] [place] [address] Care Team Providers Care Seconds Handler Name Role Phone Dung Briceño MD Primary Care Provider [phone] Encounter Details Date Type Department Care Team (Latest Contact Info) Description 06/20/2024 9:48 AM EDT Hospital Encounter TH HISTORIC ENCOUNTERS EASTERN CONVERSION ONLY Nam Chua MD 580 [facility] [address] [place] [address] Unspecified cystostomy status (CMS/HCC V24, CMS/HCC V28) [...] for your loved ones. For example, child neurologist or elderly care for an older adult? [...] AM EDT Office Visit Obstetrics and Gynecology [address] [phone] Tali Willson MD [address] [place], [place] documented as of this encounter Procedures Procedure Name Priority Date/Time Associated Diagnosis Comments CR CYSTOGRAM VOIDING Routine 06/21/2024 11:50 AM EDT Unspecified cystostomy status ([facility] V24, [facility] V28) documented in this encounter Results * CR CYSTOGRAM VOIDING (06/21/2024 11:50 AM EDT) Anatomical Region Laterality Modality Radiographic Juliann ging 06/20/2024 10:0 6 AM EDT Narrative 06/21/2024 11:[address] [facility] Diagnostic Imaging Department [address] [place] [id number] Patient: ??STEFANIE GOINS ?/Age/Sex: 1965 - 59 - F Unit#: ??[id number] ? Location/Status: ??SPDIGEN/REG CLI ? Mnemonic/Ordering Site: ??CYSTOVOID/SPDI Ordering Physician: ??NAM CHUA MD CR Cystogram Voiding - 06/20/24 [...] is smooth. There is no filling defect, ??no evidence of contrast leak or extravasation. DAP: 22.24 Gycm^2 Exam dictated by: Marcy Syed PA-C Performing and supervising physician: Arin Banda MD IMPRESSION: Normal-appearing bladder without evidence of filling defect, contrast leak or extravasation. Dictating Physician: ??ARIN BANDA Electronically Signed by: ??ARIN BANDA Dic Date/Time: ??06/20/24 1241 Sign date/Time: ??06/21/24 1159 Procedure Note Arin Banda MD - 06/29/2024 [facility] Diagnostic Imaging Department [address] [place] [address] Patient: STEFANIE GOINS Alexandr Huynh/Age/Sex: 1965 - 59 - F Unit#: [id number] Location/Status: SPDIGEN/REG CLI Mnemonic/Ordering Site: CYSTOVOID/SPDI Ordering Physician: NAM CHUA MD CR Cystogram Voiding - 06/20/24 - 8930 Report Status:Signed FINDINGS: Retrograde cystogram COMPARISON: None [...] encounter Visit Diagnoses Diagnosis Unspecified cystostomy status ([facility] V24, [facility] V28) Unspecified cystostomy status documented in this encounter Care Teams Seconds Handler Relationship Specialty Start Date End Date Dung Briceño MD [address] [place] PCP - General 03/05/04 documented as of this encounter
== END 2024-12-09 11:35 | disposition home or self-care (01) ==
LOC: HO.HOS 08:21
PROVIDERS: PCP Internal Medicine; Visit Provider Orthopaedic Surgery
DX: M17.12 Unilateral primary osteoarthritis, left knee (principal)
CPT/HCPCS: 99213

== ENCOUNTER 2024-12-09 08:20 | Outpatient (REF) | payer OTHER, SELFPAY ==
--- NOTE | ~2024-12-09 | XR_ITS ---
CLINICAL HISTORY: M25.562 - Pain in left knee AP standing bilateral knees, 2 views left knee with weight-bearing Comparison: None Findings: No fractures or dislocations. No joint effusion. Small osteophytes are present on superior and inferior poles of the patella. There is moderate degenerative narrowing of the medial left and right knee femorotibial joint spaces, mostly on the left. No radiopaque foreign body. Impression: Degenerative osteoarthritis involving the medial joint spaces of both knees. No acute skeletal abnormality. This document has been electronically signed by: Fredy Valdovinos MD on 12/09/2024 13:47:24
--- OUTSIDE RECORDS SUMMARY | 2024-12-09 09:39 | XMS_ITS | Encounter Summary ---
Author Organization [facility] [place] [address] Care Team Providers Care Biologics Specialist Name Role Phone Dung Briceño MD Primary Care Provider [phone] Encounter Details Date Type Department Care Team (Latest Contact Info) Description 06/20/2024 9:48 AM EDT Hospital Encounter TH HISTORIC ENCOUNTERS EASTERN CONVERSION ONLY Nam Chua MD 580 [facility] [address] [place] [address] Unspecified cystostomy status (CMS/HCC V24, CMS/HCC V28) [...] your loved ones. For example, child care sitter or elderly care for an older adult? [...] AM EDT Office Visit Obstetrics and Gynecology [address] [phone] Tali Willson MD [address] [place], [place] documented as of this encounter Procedures Procedure Name Priority Date/Time Associated Diagnosis Comments CR CYSTOGRAM VOIDING Routine 06/21/2024 11:50 AM EDT Unspecified cystostomy status ([facility] V24, [facility] V28) documented in this encounter Results * CR CYSTOGRAM VOIDING (06/21/2024 11:50 AM EDT) Anatomical Region Laterality Modality Radiographic Juliann ging 06/20/2024 10:0 6 AM EDT Narrative 06/21/2024 11:50 AM EDT [facility] Diagnostic Imaging Department [address] [place] [address] Patient: ??STEFANIE GOINS ?/Age/Sex: 1965 - 59 - F Unit#: ??[id number] ? Location/Status: ??SPDIGEN/REG CLI ? Mnemonic/Ordering Site: [...] Dic Date/Time: ??06/20/24 1241 Sign date/Time: ??06/21/24 115 Procedure Note Arin Banda MD - 06/29/2024 [facility] Diagnostic Imaging Department [address] [place] [address] Patient: STEFANIE GOINS Alexandr Huynh/Age/Sex: 1965 - 59 - F Unit#: [id number] Location/Status: SPDIGEN/REG CLI Mnemonic/Ordering Site: CYSTOVOID/SPDI Ordering Physician: NAM CHUA MD CR Cystogram Voiding - 06/20/24 - 6600 Report Status:Signed FINDINGS: Retrograde cystogram COMPARISON: None [...] encounter Visit Diagnoses Diagnosis Unspecified cystostomy status ([facility] V24, [facility] V28) Unspecified cystostomy status documented in this encounter Care Teams Biologics Specialist Relationship Specialty Start Date End Date Dung Briceño MD [address] [place] PCP - General 03/05/04 documented as of this encounter
--- OUTSIDE RECORDS SUMMARY | 2024-12-09 09:39 | XMS_ITS | Clinical Summary ---
Author Organization [facility] Address [address] [place] [address] Care Team Providers Care Seo Analyst Name Role Phone Dung Briceño MD Primary Care Provider [phone] Allergies Active Allergy Reactions Criticality Noted Date [...] 11/07/2024 9:00 AM EDT Office Visit Urogynecology [address] [phone] Nya Foy, NIKO Urinary urgency (Primary Dx); Hot flashes due to menopause from Last 3 Months Surgical History Surgery Date Site/Laterality Comments OTHER SURGICAL HISTORY PROCEDURE: HISTORICAL PELVISCOPY VAGINAL DELIVERY PROCEDURE: [place] VAGINAL DELIVERY ONLY; COMMENT: x3 OTHER SURGICAL HISTORY 2001 PROCEDURE: [place] TOTAL ABDOMINAL HYSTERECT W/WO RMVL TUBE OVARY; [...] for your loved ones. For example, child attendant or elderly care for an older adult? [...] AM EDT Office Visit Obstetrics and Gynecology [address] [phone] Tali Willson MD [address] [place], [place] Health Maintenance Due Date Last Done [...] Relevant to Health Maintenance Insurance Care Teams Seo Analyst Relationship Specialty Start Date End Date Dung Briceño MD [address] [place] [address] PCP - General 03/05/04
== END 2024-12-09 08:21 | disposition home or self-care (01) ==
LOC: HO.HOSX 08:20
PROVIDERS: PCP Internal Medicine; Visit Provider Orthopaedic Surgery
DX: M25.562 Pain in left knee (principal)
CPT/HCPCS: 73562

== ENCOUNTER → 2024-12-09 08:57 | Outpatient (BNV) | payer OTHER, SELFPAY | PROVIDERS: PCP Internal Medicine; Visit Provider Radiology Diagnostic Radiology | DX: M17.12 Unilateral primary osteoarthritis, left knee (principal) | CPT/HCPCS: 72100; 73562 ==

== ENCOUNTER 2024-12-09 13:39 | Outpatient (REF) | payer OTHER, SELFPAY ==
--- NOTE | ~2024-12-09 | XR_ITS ---
EXAMINATION: XR LUMBOSACRAL SPINE CLINICAL INFORMATION: LOW BACK PAIN. COMPARISON: None available. TECHNIQUE: Three views of the lumbosacral spine. FINDINGS: There is a minimal levoconvex scoliosis, apex at L4. There is a normal lumbar lordosis. No subluxations. Alignment is anatomic. No fractures, compression deformities, or suspicious bone lesions. Mild to moderate diffuse disc degeneration is present, with more moderate to severe changes at L5-S1. There is normal facet alignment bilaterally. There are degenerative hypertrophic facet changes most notable L4-S1. The sacrum is intact. Mild arthritis in the SI joints bilaterally. There are no soft tissue abnormalities. XR/XR lumbar spine 2-3V IMPRESSION: Mild to moderate lumbar spondylosis most significant at L5-S1. Electronically signed by: Gary Fletcher MD 12/11/2024 08:12 AM EDT
--- OUTSIDE RECORDS SUMMARY | 2024-12-09 15:45 | XMS_ITS | Encounter Summary ---
Author Organization [facility] [place] [address] Care Team Providers Care Neurology Epilepsy Physician Name Role Phone Dung Briceño MD Primary Care Provider Encounter Details Date Type Department Care Team (Latest Contact Info) Description 06/20/2024 9:48 AM EDT Hospital Encounter TH HISTORIC ENCOUNTERS EASTERN CONVERSION ONLY Nam Chua MD 580 [facility] [address] [place] [address] Unspecified cystostomy status (CMS/HCC V24, CMS/HCC V28) [...] care for your loved ones. For example, housekeeper child care or elderly care for an older adult? [...] AM EDT Office Visit Obstetrics and Gynecology [address] [phone] Tali Willson MD [address] [place], [place] documented as of this encounter Procedures Procedure Name Priority Date/Time Associated Diagnosis Comments CR CYSTOGRAM VOIDING Routine 06/21/2024 11:50 AM EDT Unspecified cystostomy status ([facility] V24, [facility] V28) documented in this encounter Results * CR CYSTOGRAM VOIDING (06/21/2024 11:50 AM EDT) Anatomical Region Laterality Modality Radiographic Juliann ging 06/20/2024 10:0 6 AM EDT Narrative 06/21/2024 11:50 AM EDT [facility] Diagnostic Imaging Department [address] [place] [address] Patient: ??STEFANIE GOINS ?/Age/Sex: 1965 - 59 - F Unit#: ??[id number] ? Location/Status: ??SPDIGEN/REG CLI ? Mnemonic/Ordering Site: [...] Procedure Note Arin Banda MD - 06/29/2024 [facility] Diagnostic Imaging Department [address] [place] [address] Patient: STEFANIE GOINS Alexandr Huynh/Age/Sex: 1965 - 59 - F Unit#: [id number] Location/Status: SPDIGEN/REG CLI Mnemonic/Ordering Site: CYSTOVOID/SPDI Ordering Physician: NAM CHUA MD CR Cystogram Voiding - 06/20/24 - 5810 Report Status:Signed FINDINGS: Retrograde cystogram COMPARISON: None [...] encounter Visit Diagnoses Diagnosis Unspecified cystostomy status ([facility] V24, [facility] V28) Unspecified cystostomy status documented in this encounter Care Teams Neurology Epilepsy Physician Relationship Specialty Start Date End Date Dung Briceño MD [address] [place] PCP - General 03/05/04 documented as of this encounter
--- OUTSIDE RECORDS SUMMARY | 2024-12-09 15:45 | XMS_ITS | Clinical Summary ---
Author Organization [facility] Address [address] [place] [address] Care Team Providers Care Train Controller Name Role Phone Dung Briceño MD Primary Care Provider [phone] Allergies Active Allergy Reactions Criticality Noted Date [...] 11/07/2024 9:00 AM EDT Office Visit Urogynecology [address] [phone] Nya Foy, NIKO Urinary urgency (Primary Dx); Hot flashes due to menopause from Last 3 Months Surgical History Surgery Date Site/Laterality Comments OTHER SURGICAL HISTORY PROCEDURE: HISTORICAL PELVISCOPY VAGINAL DELIVERY PROCEDURE: [place] VAGINAL DELIVERY ONLY; COMMENT: x3 OTHER SURGICAL HISTORY 2001 PROCEDURE: [place] TOTAL ABDOMINAL HYSTERECT W/WO RMVL TUBE OVARY; [...] for your loved ones. For example, child support specialist or elderly care for an older adult? [...] AM EDT Office Visit Obstetrics and Gynecology [address] [phone] Tali Willson MD [address] [place], [place] Health Maintenance Due Date Last Done [...] Relevant to Health Maintenance Insurance Care Teams Train Controller Relationship Specialty Start Date End Date Dung Briceño MD [address] [place] [address] PCP - General 03/05/04
== END 2024-12-09 13:40 | disposition home or self-care (01) ==
LOC: HO.HMGCX 13:39
PROVIDERS: PCP Internal Medicine; Visit Provider Internal Medicine
DX: M54.50 Low back pain, unspecified (principal)
CPT/HCPCS: 72100

== ENCOUNTER 2024-12-14 18:29 | Outpatient (REF) | payer OTHER, SELFPAY ==
--- NOTE | ~2024-12-14 | MR_ITS ---
EXAMINATION: MR LUMBAR SPINE WITHOUT CONTRAST CLINICAL INFORMATION: Low back pain traveling down left buttocks, hamstrings, and left lower leg since 2 1/2 weeks. No fall, no injury. COMPARISON: No prior MRI. Lumbar spine radiographs 12/09/2024. TECHNIQUE: Multiplanar multisequence MR imaging of the lumbar spine was done without IV contrast. Examination was performed on a 1.5 Malia Siemens magnet, utilizing standard sequences. FINDINGS: CORONAL ALIGNMENT: -Normal.. SAGITTAL ALIGNMENT: - Normal lordosis. -There is a trace 2 mm retrolisthesis of L2 on L3. -There is a trace 2 mm anterolisthesis of L4 on L5. LUMBOSACRAL JUNCTION: -Normal. There are 5 mll-yep-ekexhpf lumbar-type vertebral bodies. VERTEBRAL BODIES/BONE MARROW: -There are mild edematous type endplate changes present at L5-S1. -No additional gross bone marrow edema, or abnormal infiltrating bone marrow signal. -No compression deformities, or acute fractures. DISCS: -There is mild to moderate diffuse loss of disc height and signal at all levels. SPINAL CANAL: -No abnormal developmental findings. CONUS MEDULLARIS: -Terminates at L1. Morphology and signal is normal. INTRADURAL NERVE ROOTS: - Within normal limits. Axial Disc Space Images: T12-L1: No central canal or neural foraminal stenosis. Normal facets. L1-L2: Minimal shallow disc bulging present, without significant mass effect. Early degenerative facet changes bilaterally. No central canal or neural foraminal stenosis. L2-L3: Shallow concentric disc bulge present, indenting upon the ventral thecal sac but not contacting nerve roots. Mild hypertrophic degenerative facet changes present, with the combination of findings resulting in minimal central canal narrowing, minimal right greater than left subarticular recess narrowing, and mild bilateral neural foraminal narrowing. L3-L4: Shallow concentric disc bulge present, extending into both foraminal zones. This indents mildly upon the ventral thecal sac but does not contact the neural elements. Mild hypertrophic degenerative facet changes bilaterally, right greater than left. Combination of findings is resulting in minimal central canal stenosis, minimal bilateral subarticular recess stenosis, and mild right greater than left neural foraminal stenosis. L4-L5: Shallow concentric bulging disc is present, extending into both foraminal zones. Elwh-mr-ehbejrne hypertrophic degenerative facet changes present with posterior ligamentous thickening/infolding. There is mild to moderate central canal stenosis, mild to moderate bilateral subarticular recess stenosis with contact but no significant mass effect upon the traversing bilateral L5 nerve roots. There is mild to moderate left and mild right neural foraminal stenosis. L5-S1: There is a shallow concentric disc bulge present with a superimposed central disc extrusion trusion with mild inferior migration, and associated annular tearing. This extruded fragment measures 0.5 x 1.0 x 0.9 cm (AP, TRV, CC). There is contact, deviation, and mild impingement of the traversing left S1 root. There is contact but no definite impingement of the traversing right S1 root. There are mild to moderate hypertrophic degenerative facet changes bilaterally. There is mild to moderate bilateral neural foraminal narrowing without significant mass effect upon the exiting L5 nerve roots. IMAGED SI JOINTS: -Minimal degenerative arthritis bilaterally. PARAVERTEBRAL AND INCLUDED EXTRASPINAL SOFT TISSUES: -Normal. The aorta is normal in caliber. MR/MR lumbar spine wo con IMPRESSION: 1. Predominant pathology is a central/left paracentral disc extrusion at L5-S1 which is contacting and mildly impinging the traversing left S1 nerve root. See the body of the report for details. Electronically signed by: Gary Fletcher MD 12/17/2024 08:55 AM EDT
== END 2024-12-14 18:30 | disposition home or self-care (01) ==
LOC: HO.MRI 18:29
PROVIDERS: PCP Internal Medicine; Visit Provider Internal Medicine
DX: M47.896 Other spondylosis, lumbar region (principal)
CPT/HCPCS: 72148

== ENCOUNTER → 2024-12-14 18:40 | Outpatient (BNV) | payer OTHER, SELFPAY | PROVIDERS: PCP Internal Medicine; Visit Provider Radiology Diagnostic Radiology | DX: M47.896 Other spondylosis, lumbar region (principal) | CPT/HCPCS: 72148 ==

== ENCOUNTER 2025-01-30 10:19 | Outpatient (AMB) | payer OTHER, SELFPAY ==
--- NOTE | 2025-01-30 10:42 | MHC.OFFVIS ---
Vital Signs 01/30/25 10:42 Height 5 ft 5 in Intake Visit Reasons: Left Knee Gel-One Injection Intake Note: Stefanie is 59 year old female who presents today for a Left Knee Gel-One Injection. Allergies oxycodone [Percocet] Allergy (Intermediate, Verified 01/30/25 10:47) Itchiness LATEX GLUE Allergy (Intermediate, Uncoded 01/30/25 10:47) redness and inflammation HPI HPI Left Knee Gel-One Injection: Details: Stefanie is 59 year old female who presents today for a Left Knee Gel-One Injection. [facility] Medical History (Updated 05/05/23 @ 15:13 by Sara Silva RN) Arthritis Elevated cholesterol GERD (gastroesophageal reflux disease) Essential hypertension Surgical History (Updated 12/09/24 @ 08:28 by Raina Roach CMA) History of bladder surgery (~06/2024) Hx of arthroscopy of left knee Hx of foot surgery History of bilateral carpal tunnel release History of lumpectomy of left breast History of total hysterectomy History of cardiac catheterization (~05/16/18) Family History (Updated 05/05/23 @ 15:14 by Sara Silva RN) Father Brain cancer Mother Status post placement of cardiac pacemaker Breast cancer PONV (postoperative nausea and vomiting) Social History Are you a primary critical care cns to a significant other at home: No Do you presently have visiting nurse or other home services: No Comment: aware of trip hazard Patient Tobacco Use Status: Never used Tobacco Current occupational status: employed 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 Site was prepped using aseptic technique. Patient tolerated the procedure well. Shoulders, Hips, Knees, Knee Large Joint Injection : Left Knee Coding Procedure code (CPT) selection complete Assessment & Plan Assessment & Plan (1) Osteoarthritis of left knee: Code(s): M17.12 - Unilateral primary osteoarthritis, left knee Category: Medical Plan: Left knee OA. Injected gel 1. Follow up 3 months. Coding Level of Care Code Est Pt Level 2 (04222) Diagnoses Osteoarthritis of left knee M17.12 CPT Codes Shoulders, Hips, Knees, - Knee Large Joint Injection : Left Knee ([id number])
--- OUTSIDE RECORDS SUMMARY | 2025-01-30 12:04 | XMS_ITS | Patient Health Record ---
[facility] Address [address] [place] [address] Care Team Providers Care Migratory Game Bird Biologist Name Role Phone Dung Briceño MD Primary Care Provider Unavailab Julio Wilcox Unavailable [phone] Allergies Allergen (clinical drug ingredient) Drug/Non Drug Allergy documented on EMR Reaction Allergy Type Onset Date Status acetaminophen / oxycodone Percocet itchy Drug Allergy Active adhesive tape rash Drug Allergy Act jb Reason For Referral No Information Medications Medication SIG (Take, Route, Frequency, Duration) Notes Start Date End Date Status [place] 3 Active Probiotic Active Aspir-81 81 MG 1 tablet Orally Once a day for 30 day(s) Active PriLOSEC 20 mg twice a day Not -Taking Estradiol 0.025 MG/24HR Transdermal Active Atorvastatin Calcium 10 MG 1 tablet Orally Once a day for 30 day(s) Active Sulindac 200 MG 1 tablet with food Orally Twice a day Not-Taking Omeprazole 20 MG 1 capsule Orally Onc e a day for 30 day(s) Active Vivelle 0.1 twice a week Not-T aking Metoprolol Succinate 100 MG 1 capsule Orally Once a day for 30 day(s) Active Nancy 180mg Active Calcium Active Zinc Active Co Q 10 Active Social History Tobacco Use: Social History Observation Description Date Details (start date - stop date) Former Smoker NA - NA Tobacco Use/Smoking Question Answer Notes Are you a: former smoker Additional Findings: Tobacco Non-User Current no n-smoker Alcohol Screen Question Answer Notes Did you have a drink containing alcohol in the p ast year? Yes Points 0 Interpretation Negative Problems Problem Type SNOMED Code ICD Code Onset Dates Problem Status W/U Status Risk Notes Problem Plantar wart (55059260) Plantar wart (B07.0) Active confirmed Plan Of Treatment Pending Test Test Name Order Date [id number]-Hypj Destruction, 09-1006/10/2011 55769-Pjjr Destruction, 09-1006/24/2011 73716-Dgrh Destruction, 09-1007/08/2011 62141-Gfqc Destruction, 09-1007/29/2011 77188-Qwlm Destruction, 09-1009/02/2011 47593-Kfsm Destruction, 09-1009/23/2011 32685-Fhif Destruction, 09-1002/01/2019 35261-Cinfhuoe Plate 07/29/2011 01742-Oyqnwxxs Plate 09/02/2011 73987-Buzlxiqj Plate Each Additional 09/2010 31654,[id number] TENDON SHEATH/LIGAMENT 0 04/04/2014 Insurance Providers Payer Name Payer Address Payer Phone Subscriber Number Group Number Insured Name Patient Relationship to Insured Coverage Start Date Coverage End Date [facility] [address] [place] [address] [id number] Stefanie Goins Self - patient is the insured Medical (General) History Medical History History ICD Code reflux chicken pox Back,Hip,and Knee pain CAD (Cholesterol) Headaches/Migraines High blood pressure Surgical History Surgery Date(Month/Year) foot surgery- had ESWT, fasciiotomy, RT foot 2002 hysterectomy 2000 Left carpal tunnel 01/11/2018 Heart cath 05/16/2018 Colonoscopy 12/2016 Hospitalization History Reason Date(Month/Year) pinch nerve 05/20-
== END 2025-01-30 11:01 | disposition home or self-care (01) ==
LOC: HO.HOS 10:20
PROVIDERS: PCP Internal Medicine; Visit Provider Orthopaedic Surgery
DX: M17.12 Unilateral primary osteoarthritis, left knee (principal)
CPT/HCPCS: 20610

== ENCOUNTER → 2025-01-30 10:19 | Outpatient (BNVA) | payer OTHER, SELFPAY | PROVIDERS: PCP Internal Medicine; Visit Provider Orthopaedic Surgery | DX: M17.12 Unilateral primary osteoarthritis, left knee (principal) | CPT/HCPCS: 20610; J7326 ==

== ENCOUNTER 2025-02-11 12:31 | Outpatient (REF) | payer OTHER, SELFPAY ==
--- OUTSIDE RECORDS SUMMARY | 2025-02-11 14:11 | XMS_ITS | Patient Health Record ---
[facility] Address [address] [place] [address] Care Team Providers Care Diamond Wheel Edger Name Role Phone Dung Briceño MD Primary Care Provider Unavailab Julio Wilcox Unavailable [phone] Allergies Allergen (clinical drug ingredient) Drug/Non Drug Allergy documented on EMR Reaction Allergy Type Onset Date Status acetaminophen / oxycodone Percocet itchy Drug Allergy Active adhesive tape rash Drug Allergy Act jb Reason For Referral No Information Medications Medication SIG (Take, Route, Frequency, Duration) Notes Start Date End Date Status Ray 3 Active Probiotic Active Aspir-81 81 MG [...] W/U Status Risk Notes Problem Plantar wart (14241160) Plantar wart (B07.0) Active confirmed Plan Of Treatment Pending Test Test Name Order Date [id number]-Ksux Destruction, 09-1006/10/2011 18187-Wuiz Destruction, 09-1006/24/2011 88583-Gcnr Destruction, 09-1007/08/2011 68623-Rqav Destruction, 09-1007/29/2011 58161-Jfhu Destruction, 09-1009/02/2011 91249-Klih Destruction, 09-1009/23/2011 55953-Ncey Destruction, 09-1002/01/2019 49061-Npdghmvd Plate 07/29/2011 33248-Newcmcza Plate 09/02/2011 50152-Mlvzuvhu Plate Each Additional 09/2010 83585,[id number] TENDON SHEATH/LIGAMENT 0 04/04/2014 Insurance Providers Payer Name Payer Address Payer Phone Subscriber Number Group Number Insured Name Patient Relationship to Insured Coverage Start Date Coverage End Date [facility] [address] [place] [address] [id number] Stefanie Goins Self - patient is the [...]
[2025-02-11 16:18] LABS: MANUAL DIFF FLAG NO
[2025-02-11 16:25] LABS: Basophils Absolute Auto 0.1 X10*3/uL (0.0-0.2); Basophils Percent Auto 0.9 % (0-2); Eosinophils Absolute Auto 0.1 X10*3/uL (0.0-0.4); Eosinophils Percent Auto 1.8 % (0-4); Hematocrit 36.7 % (37.0-47.0); Hemoglobin 12.4 g/dl (12.0-16.0); Imm Gran Abs Auto 0.03 X10*3/uL (0.00-0.03); Imm Gran Pct Auto 0.5 % (0.0-0.4); Lymphocytes Absolute Auto 1.4 X10*3/uL (1.2-4.9); Lymphocytes Percent Auto 26.4 % (20-40); Mean Corpuscular HGB Conc 33.8 g/dl (31.0-35.0); Mean Corpuscular Hemoglobin 29.7 pg (27.0-33.0); Mean Corpuscular Volume 87.8 fL (80.0-98.0); Mean Platelet Volume 10.1 fL (9.4-12.3); Monocytes Absolute Auto 0.6 X10*3/uL (0.1-1.2); Monocytes Percent Auto 10.3 % (2-11); Neutrophils Absolute Auto 3.3 x10*3/uL (2.0-8.3); Neutrophils Percent Auto 60.1 % (45-73); Platelet Count 276 X10*3/uL (160-400); Red Blood Count 4.18 X10*6/uL (4.20-5.50); Red Cell Distribution Width 14.3 % (11.0-16.0); White Blood Count 5.5 X10*3/uL (4.8-10.8)
[2025-02-11 16:28] LABS: INTERNATIONAL NORM RATIO 0.9 (0.9-1.1); Prothrombin Time 10.6 SEC (10.9-12.4)
[2025-02-11 16:31] LABS: Partial Thromboplastin Time 29.7 SEC (26.0-36.8)
[2025-02-11 17:09] LABS: Anion Gap 11 (12-20); Blood Urea Nitrogen 15 mg/dL (9-16); Calcium 9.4 mg/dL (8.4-10.2); Carbon Dioxide 28 mmol/L (22-29); Chloride 107 mmol/L (96-108); Estimated Glomerular Filt Rate > 60; Glucose Random 76 mg/dL (60-115); Sodium 142 mmol/L (135-145)
== END 2025-02-11 12:32 | disposition home or self-care (01) ==
LOC: HO.HMGCLDS 12:31
PROVIDERS: PCP Internal Medicine; Visit Provider Audiologist
DX: Z01.818 Encounter for other preprocedural examination (principal); R53.83 Other fatigue
CPT/HCPCS: 36415; 80048; 85025; 85610; 85730

== ENCOUNTER 2025-03-12 13:18 | Outpatient (REF) | payer OTHER, SELFPAY ==
--- OUTSIDE RECORDS SUMMARY | 2024-06-20 09:48 | XMS_ITS | Encounter Summary ---
Author Organization [facility] [place] [address] Care Team Providers Care Vice President And Portfolio Manager Name Role Phone Dung Briceño MD Primary Care Provider [phone] Encounter Details Date Type Department Care Team (Latest Contact Info) Description 06/20/2024 9:48 AM EDT Hospital Encounter TH HISTORIC ENCOUNTERS [facility] ONLY Nam Chua MD [address] [facility] [address] [place] [address] Unspecified cystostomy status (CMS/HCC V24, CMS/HCC V28) Social History Tobacco Use Types Packs/Day Years Used Date Smoking Tobacco: Former Cigarettes Q uit: 12/21/1981 Smokeless Tobacco: Never Alcohol [...] for your loved ones. For example, child and family services worker or elderly care for an older [...] Date Recorded What is your living situation? 0 12/07/2024 Comments No Sex and Gender Information [...] 06/21/2024 11:50 AM EDT Unspecified cystostomy status ([facility] V24, [facility] V28) documented in this encounter Results * CR CYSTOGRAM VOIDING (06/21/2024 11:50 AM EDT) Anatomical Region Laterality Modality Radiographic Juliann ging 06/20/2024 10:0 6 AM EDT Narrative 06/21/2024 11:50 AM EDT [facility] Diagnostic Imaging Department [address] [place] [address] Patient: STEFANIE GOINS Alexandr MckeonB./Age/Sex: 1965 - 59 - F Unit#: [id number] Location/Status: SPDIGEN/REG CLI Mnemonic/Ordering Site: CYSTOVOID/SPDI Ordering Physician: NAM CHUA MD CR Cystogram Voiding - 06/20/24 - 1050 Report Status:Signed FINDINGS: Retrograde cystogram COMPARISON: None HISTORY: Patient is a 59-year-old female with 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 TECHNIQUE: Patient comes to the radiology department with Aamnda catheter in place. Approximately 300 cc of [...] Procedure Note Arin Banda MD - 06/29/2024 [facility] Diagnostic Imaging Department [address] [place] [address] Patient: STEFANIE GOINS Alexandr Plaza/Age/Sex: 1965 - 59 - F Unit#: [id number] Location/Status: SPDIGEN/REG CLI Mnemonic/Ordering Site: CYSTOVOID/SPDI Ordering [...] Date/Time: 06/20/24 1241 Sign date/Time: 06/21/24 1150 us Nam Chua MD IMG XR PROCEDURES Final Result documented in this encounter Visit Diagnoses Diagnosis Unspecified cystostomy status ([facility] V24, [facility] V28) Unspecified cystostomy status documented in this encounter Care Teams Vice President And Portfolio Manager Relationship Specialty Start Date End Date Dung Briceño MD [facility] P[facility] - General 03/05/04 documented as of this encounter
--- NOTE | ~2025-03-12 | US_ITS ---
EXAMINATION: US DIAGNOSTIC ULTRASOUND BREAST, RIGHT CLINICAL INFORMATION: 6 month followup ultrasound for solid mass in the right breast. COMPARISON: Comparison is made with relevant prior imaging. TECHNIQUE: Ultrasound of the breast is performed with real-time keller scale imaging and color Doppler. FINDINGS: Targeted color Doppler ultrasound scanning at 10:00 6 cm from the nipple abdomen demonstrates a hypoechoic oval circumscribed solid mass measuring 7 x 4 x 7 mm not significantly changed from prior ultrasound 6 months ago. Results are discussed with the patient at time of visit. US/US breast RT limited mamm only IMPRESSION: Hypoechoic oval circumstance solid mass at 10:00 6 cm from the nipple with morphology of a probable benign fibroadenoma. This mass is stable from prior ultrasound 6 months ago. Recommend 6 month follow-up ultrasound for further evaluation of stability. ASSESSMENT: BI-RADS 3: Probably Benign RECOMMENDATION: Diagnostic in 6 months. This patient's information was entered into a reminder system with a target due date for their next mammogram. Electronically signed by: No Lanier DO 03/12/2025 03:42 PM EDT
--- OUTSIDE RECORDS SUMMARY | 2025-03-12 14:07 | XMS_ITS ---
Author Name [facility] Organization Unknown History of Medication Use Medication Directions Dispensed Refills Start Date End Date Stat us docusate sodium (COLACE) 100 mg capsule Take 1 capsule (100 mg total) by mouth 2 (two) times a day. 06/07/2024 active trospium 60 mg capsule,extended release 24hr Take 1 capsule (60 mg total) by mouth 1 (one) time each day. 08/02/2023 active omeprazole (PriLOSEC) [address] capsule 10/22/2017 active metoprolol succinate (TOPROL-XL) 100 mg 24 hr tablet Take 100 mg by mouth daily. active predniSONE (DELTASONE) 5 mg tablet Take 5 mg by mouth daily. active Allergies Allergen Reaction Severity Comment Documented Date Source Statu s OXYCODONE itching 02/13/2019 [facility] active Problems Problem Status Onset Date Problem Type Date of Resoluti on Source Vaginal atrophy active 2023-01-[address] [facility] Chronic fatigue active 2020-07-[address] [facility] Neck pain active 2020-07-06 [facility] Plantar fasciitis of left foot active 2020-07-06 [facility]Act [facility] Vitamin D insufficiency active 2020-07-06 ProblemAct [facility] Hypertension active 2021-04-20 ProblemAct [facility] Myalgia active 2020-07-06 ProblemAct [facility] Hot flashes active 2023-01-26 ProblemAct [facility] K[facility] Primary osteoarthritis of first carpometacarpal joint of right hand active 2022-02-23 [facility]Act [facility] Varicose veins with pain active 2018-12-06 ProblemAct [facility] Right carpal tunnel syndrome active 2022-02-23 [facility] [facility] Mixed stress and urge urinary incontinence active 2023-01-26 [facility]Act [facility] Primary osteoarthritis involving multiple joints active 2020-07-06 [facility] [facility] Diverticulosis active 2017-01-[address] [facility]
--- OUTSIDE RECORDS SUMMARY | 2025-03-12 14:07 | XMS_ITS | Patient Health Record ---
Author Organization [facility] Address [address] [place] [address] Care Team Providers Care Sample Tester Name Role Phone Dung Briceño MD Primary Care Provider Unavailab Julio Wilcox Unavailable [phone] Allergies Allergen (clinical drug ingredient) Drug/Non Drug Allergy documented on EMR Reaction Allergy Type Onset Date Status acetaminophen / oxycodone Percocet itchy Drug Allergy Active adhesive tape rash Drug Allergy Act jb Reason For Referral No Information Medications Medication SIG (Take, Route, Frequency, Duration) Notes Start Date End Date Status [place] 3 Active Probiotic Active Aspir-81 81 MG 1 tablet Orally Once a day; Duration: 30 day(s) Active PriLOSEC 20 mg twice a day Not -Taking Estradiol 0.025 MG/24HR Transdermal Active Atorvastatin Calcium 10 MG 1 tablet Orally Once a day; Duration: 30 day(s) Active Sulindac 200 MG 1 tablet with food Orally Twice a day Not-Taking Omeprazole 20 MG 1 capsule Orally Onc e a day; Duration: 30 day(s) Active Vivelle 0.1 twice a week Not-T aking Metoprolol Succinate 100 MG 1 capsule Orally Once a day; Duration: 30 day(s) Active Nancy 180mg Active Calcium [...] W/U Status Risk Notes Problem Plantar wart (92532242) Plantar wart (B07.0) Active confirmed Plan Of Treatment Pending Test Test Name Order Date [id number]-Ksxr Destruction, 09-1006/10/2011 03820-Gjgk Destruction, 09-1006/24/2011 06053-Cznx Destruction, 09-1007/08/2011 34670-Bqvg Destruction, 09-1007/29/2011 11326-Nvee Destruction, 09-1009/02/2011 44781-Ylhc Destruction, 09-1009/23/2011 58874-Ffzw Destruction, 09-1002/01/2019 67982-Oblspmgv Plate 07/29/2011 73543-Utpiyrir Plate 09/02/2011 49972-Fxqwmdbn Plate Each Additional 09/2010 [id number] TENDON SHEATH/LIGAMENT 0 04/04/2014 Insurance Providers Payer Name Payer Address Payer Phone Subscriber Number Group Number Insured Name Patient Relationship to Insured Coverage Start Date Coverage End Date [facility] [address] [place] [address] [id number] Stefanie Goins Self - patient is the [...]
== END 2025-03-12 13:19 | disposition home or self-care (01) ==
LOC: HO.MAMMO 13:18
PROVIDERS: PCP Internal Medicine; Visit Provider Internal Medicine
DX: R92.2 Inconclusive mammogram (principal)
CPT/HCPCS: 76642

== ENCOUNTER → 2025-03-12 13:30 | Outpatient (BNV) | payer OTHER, SELFPAY | PROVIDERS: PCP Internal Medicine; Visit Provider Internal Medicine | DX: N63.12 Unspecified lump in the right breast, upper inner quadrant (principal) | CPT/HCPCS: 76642 ==

== ENCOUNTER 2025-03-14 09:40 | Outpatient (AMB) | payer OTHER, SELFPAY ==
--- NOTE | 2025-03-14 09:40 | MHC.PC.OV ---
Vital Signs 03/14/25 09:46 Height 5 ft 6.42 in Weight 226 lb 4 oz BMI 36.1 BP 130/71 Blood Pressure Location Rt brachial Position Sitting Respiration 16 Pulse 59 Pulse Source Pulse Oximeter Temp 97.2 F Temp Source Temporal Artery Scan Pulse Oximetry (%) 98 Oxygen Delivery Method Room Air Intake Visit Reasons: establish care Horologist Required: No Accompanied by: Self / Same As Patient Allergies oxycodone (Percocet) Allergy (Intermediate, Verified 03/14/25 10:04) Itchiness LATEX GLUE Allergy (Intermediate, Uncoded 03/14/25 10:04) redness and inflammation Medication List - Last Reconciled 03/14/25 by Arminda Umana PA-C ascorbic acid (vitamin C) 1 g PO DAILY atorvastatin 10 mg PO DAILY docusate sodium 100 mg PO BID losartan 50 mg PO DAILY metoprolol succinate ER 100 mg PO DAILY multivitamin 1 tab PO DAILY omega-3 fatty acids (Fish Oil Concentrate) 1,000 mg PO DAILY omeprazole 20 mg PO DAILY paroxetine HCl 10 mg PO DAILY [Probiotic ] Tobacco use date assessed: 03/14/25 Dental Screening Dental Screen Date: 03/14/25 Did you have a dental visit in the last 12 months?: Yes Did you have a dental problem in the last 6 months where you did not have access to dental care?: No Was dental information given to patient?: Patient has dentist HPI establish care HPI Details The patient is a 60-year-old female presenting to establish a new primary care provider for a routine follow-up and management of multiple chronic conditions. The patient has a history of myocardial bridging, identified during a cardiac catheterization due to chest pain during brisk walking. The cardiac catheterization showed no significant coronary artery disease, and the patient was advised to slow down during physical exertion to manage symptoms. The patient is on atorvastatin for hyperlipidemia and losartan for hypertension, with regular monitoring of blood pressure and cholesterol levels. Recent blood work indicated a fasting glucose level that was slightly elevated, prompting an A1c test to rule out diabetes, which returned a result indicating prediabetes. The patient reports a breast lump in the right breast, monitored through regular mammograms and ultrasounds. The most recent ultrasound showed stability of the mass, with a recommendation for a follow-up ultrasound in six months. The patient has a history of a complete hysterectomy and reports a family history of breast cancer, with her mother having had breast cancer twice. The patient experiences gastrointestinal symptoms consistent with lactose intolerance, including diarrhea triggered by dairy consumption, and manages this by using lactate milk and avoiding cheese. A recent stool sample was normal, ruling out infections such as C. difficile. Social History - Employment: Works as a [employer] ([employer]) - Functional status: Limited in physical activities due to arthritis and recent back surgery [facility] Medical History (Updated 03/14/25 @ 10:39 by Arminda Umana PA-C) Lactose intolerance Prediabetes Breast lump Hyperlipidemia Hypertension Myocardial bridge Establishing care with new doctor, encounter for Family history of breast cancer Lump of right breast Diarrhea Arthritis Elevated cholesterol GERD (gastroesophageal reflux disease) Essential hypertension Surgical History History of hysterectomy History of bladder surgery (~06/2024) Hx of arthroscopy of left knee Hx of foot surgery History of bilateral carpal tunnel release History of lumpectomy of left breast History of total hysterectomy History of cardiac catheterization (~05/16/18) Family History Father Brain cancer Mother Status post placement of cardiac pacemaker Breast cancer PONV (postoperative nausea and vomiting) Social History Housing: House Are you a primary rn complex care to a significant other at home: No Do you presently have visiting nurse or other home services: No Alcohol intake: current Alcohol intake frequency: a few times a month Comment: aware of trip hazard Patient Tobacco Use Status: Former Tobacco user service: No Current occupational status: employed Cognitive needs: No Hearing needs: No Vision needs: Yes (rx glasses) Questionnaire PHQ-9 Over the last 2 weeks, how often have you been bothered by any of the following problems? 1. Little interest or pleasure in doing things: not at all 2. Feeling down, depressed, or hopeless: not at all 3. Trouble falling or staying asleep, or sleeping too much: not at all 4. Feeling tired or having little energy: not at all 5. Poor appetite or overeating: not at all 6. Feeling bad about yourself - or that you are a failure or have let yourself or your family down: not at all 7. Trouble concentrating on things, such as reading the newspaper or watching television: not at all 8. Moving or speaking so slowly that other people could have noticed. Or the opposite - being so fidgety or restless that you have been moving around a lot more than usual: not at all 9. Thoughts that you would be better off or of hurting yourself in some way: not at all Total score: 0 Depression Screening Interpretation: Negative Depression Screening Done: Yes 15337 - PHQ-9 Billing: Yes Source: Developed by Drs. Kwesi Abbott, Taniya Kaplan, Vinay Ramirez and colleagues, with an educational ronen from [facility]. Thrive Questionnaire Date Thrive assessed: 03/14/25 I am a: Patient What is your living situation today?: I have a steady place to live Within the past 12 months, did the food you bought not last and you didn't have the money to get more?: Never true Within the past 12 months, did you worry whether your food would run out before you got money to buy more?: Never true Do you have trouble paying for medicines?: No Do you have trouble getting transportation to medical appointments?: No Do you have trouble paying your heating and electricity bill?: No Do you have trouble taking care of your child, family member or friend?: No Do you have trouble with day-to-day activities such as bathing, preparing meals, shopping, managing finances, etc.?: No Are you currently unemployed and looking for a job?: No Are you interested in more education?: No Please select the resources that you would like help with: None Currently or been in a relationship where the following occur: No concerns reported THRIVE Score: 0 AUDIT C Alcohol Use Questionnaire (AUDIT-C) 1. How often do you have a drink containing alcohol?: 2-4 times a month 2. How many drinks containing alcohol do you have on a typical day when you are drinking?: 1 or 2 3. How often do you have six or more drinks on one occasion?: Never Total Score: 2 Score Reviewed/Action Taken: No [place]-7 AMB Questionnaire [place]-7 Date [place] - 7 assessed: 03/14/25 Feeling nervous, anxious, or on edge: 0 = Not at all Not being able to stop or control worryin = Not at all Worrying too much about different things: 0 = Not at all Trouble relaxin = Not at all Being so restless that it is hard to sit still: 0 = Not at all Becoming easily annoyed or irritable: 0 = Not at all Feeling afraid as if something awful might happen: 0 = Not at all Total [place]-7 score (0-4 normal; 5-9 mild; 10-14 moderate; 15-21 severe): 0 Source: Developed by Drs. Kwesi Abbott, Taniya Kaplan, Vinay Ramirez and colleagues, with an educational ronen from [facility]. [place]-7 Assessment Billing [place]-7 Assessment Tool: [place]-7 Assessment 61760 Review of Systems Const Details: - Cardiovascular: Denies chest pain, reports myocardial bridging - Gastrointestinal: Reports diarrhea, denies abdominal pain or unintentional weight loss - Endocrine: Reports hot flashes managed with paroxetine - Neurological: Denies headaches or dizziness Physical exam (Primary Care) Vital Signs: Last Vital Signs Temp 97.2 F 03/14/25 09:46 Pulse 59 03/14/25 09:46 Resp 16 03/14/25 09:46 BP 130/71 03/14/25 09:46 Pulse Ox 98 03/14/25 09:46 Oxygen Delivery Method Room Air 03/14/25 09:46 Care Plan Goal for BP management: <140/90 at Goal BMI result Body Mass Index 36.1 BMI Assessment/Plan discussion: High BMI High, discussed plan: lifestyle, weight reduction, dietary, physical activity and alcohol moderation Tobacco/Smoking Status: Tobacco use Status Tobacco use date assessed 03/14/25 03/14/25 09:56 Patient Tobacco Use Status Former Tobacco user 03/14/25 09:56 PHQ-9: PHQ-9 Score PHQ-9: Total score 0 03/14/25 10:05 Depression Screening Interpretation: Negative Thrive Assessment: Date of Thrive Assessment Date Thrive assessed 03/14/25 03/14/25 09:56 Currently or been in a relationship where the following occur: No concerns reported Const Other: Appearance: Alert. Oriented X3. No acute distress. Head: Normal external exam. Normocephalic. Atraumatic. Eyes: Pupils are equal, round, and reactive to light. Extraocular movements intact. Conjunctiva and sclera normal. Eyelids normal. Noted a lump in the eye, possibly an internal hordeolum. Ears: External auditory canal normal. Tympanic membranes normal. Throat: Pharynx normal. Uvula midline. Moist mucous membranes. Neck: Normal inspection. Neck supple. Full range of motion. No adenopathy. Thyroid Normal. No meningeal signs. No neck mass noted. Cardiovascular: Normal heart rate and rhythm. Heart sound normal. No murmurs noted. Pulses normal throughout. Respiratory: No respiratory distress. Painless inspiration. Breath sounds normal. No wheezes/rales/rhonchi noted. Chest nontender. No accessory muscle usage noted or decreased air movement noted. Abdomen: Soft and nontender. No distention noted. No organomegaly noted. Reports diarrhea every day, alternating with normal bowel movements. Back: No costovertebral angle tenderness. Full range of motion noted. Recent back surgery with four bulging discs and one herniation. Skin: Skin warm and dry. Normal skin color. Normal skin turgor. No rashes/lesions/lacerations noted. Extremities: No lower extremity edema. Extremities exhibit normal range of motion. Extremities nontender. Neuro: Oriented X 3. No motor deficit. No sensory deficit. Reflexes normal. Results AMB Hemoglobin A1c AMB Hemoglobin A1c 5.7 % Last Edit by SHIRA Santiago on 03/14/25 10:24 Results Reviewed Results Reviewed: - Labs: Fasting glucose slightly elevated, A1c indicating prediabetes - Imaging: Breast ultrasound shows stable mass, follow-up recommended in six months Coding Level of Care Code New Pt Level 5 (94086) Complex EM visit Add On G2211 Diagnoses Establishing care with new doctor, encounter for Z76. Myocardial bridge Q24.5 Hypertension I10 Hyperlipidemia E78.5 Breast lump N63.0 Prediabetes R73.03 Lactose intolerance E73.9 Additional Codes PHQ-9 - 98965 - PHQ-9 Billing: Yes ([id number]) [place]-7 Assessment Billing - [place]-7 Assessment Tool: [place]-7 Assessment 40061 ([id number]) Assessment & Plan Assessment & Plan (1) Establishing care with new doctor, encounter for: Code(s): Z76.89 - Persons encountering health services in other specified circumstances Category: Medical (2) Myocardial bridge: Code(s): Q24.5 - Malformation of coronary vessels Category: Medical Plan: The patient was advised to manage myocardial bridging symptoms by slowing down during physical exertion to prevent chest pain. (3) Hypertension: Code(s): I10 - Essential (primary) hypertension Category: Medical Plan: The patient is on losartan for hypertension management, with regular monitoring of blood pressure levels. (4) Hyperlipidemia: Code(s): E78.5 - Hyperlipidemia, unspecified Category: Medical Plan: The patient is on atorvastatin for hyperlipidemia, with regular monitoring of cholesterol levels. (5) Breast lump: Code(s): N63.0 - Unspecified lump in unspecified breast Category: Medical Plan: The breast lump is being monitored with regular mammograms and ultrasounds, with the most recent ultrasound showing stability and a recommendation for a follow-up in six months. (6) Prediabetes: Code(s): R73.03 - Prediabetes Category: Medical Plan: The patient was advised on lifestyle modifications to manage prediabetes, including reducing sugar and carbohydrate intake. (7) Lactose intolerance: Code(s): E73.9 - Lactose intolerance, unspecified Category: Medical Plan: The patient manages lactose intolerance by using lactate milk and avoiding cheese, with a recent stool sample ruling out infections. Plan Plan Patient was informed and verbally consented to the use of an ambient scribe for clinic note documentation during this visit. 1. Myocardial Bridging The patient was advised to manage myocardial bridging symptoms by slowing down during physical exertion to prevent chest pain. 2. Hypertension The patient is on losartan for hypertension management, with regular monitoring of blood pressure levels. 3. Hyperlipidemia The patient is on atorvastatin for hyperlipidemia, with regular monitoring of cholesterol levels. 4. Breast Lump The breast lump is being monitored with regular mammograms and ultrasounds, with the most recent ultrasound showing stability and a recommendation for a follow-up in six months. 5. Prediabetes The patient was advised on lifestyle modifications to manage prediabetes, including reducing sugar and carbohydrate intake. 6. Lactose Intolerance The patient manages lactose intolerance by using lactate milk and avoiding cheese, with a recent stool sample ruling out infections. During the visit, we discussed the management of the patient's myocardial bridging, advising her to slow down during physical exertion to prevent chest pain. We reviewed her medication regimen for hypertension and hyperlipidemia, ensuring she continues with losartan and atorvastatin. The patient was informed about her prediabetes status and advised on dietary modifications to manage it. We also discussed the monitoring plan for her breast lump, with follow-up imaging scheduled in six months. Orders: Orders C Reactive Protein Today Z00.00 - Encounter for general adult medical examination without abnormal findings Magnesium Today Z00.00 - Encounter for general adult medical examination without abnormal findings Vitamin B12 and Folate Today Z00.00 - Encounter for general adult medical examination without abnormal findings Vitamin D 25-OH Total Today Z00.00 - Encounter for general adult medical examination without abnormal findings TSH reflex Free T4 Today Z00.00 - Encounter for general adult medical examination without abnormal findings Liver Panel Today Z00.00 - Encounter for general adult medical examination without abnormal findings Lipid Panel Today Z00.00 - Encounter for general adult medical examination without abnormal findings AMB Hemoglobin A1c Today Z13.9 - Encounter for screening, unspecified Referrals [facility] Referral N63.10 - Unspecified lump in the right breast, unspecified quadrant, Z80.3 - Family history of malignant neoplasm of breast, Z90.710 - Acquired absence of both cervix and uterus Gastroenterology Referral R19.7 - Diarrhea, unspecified, Z12.11 - Encounter for screening for malignant neoplasm of colon Patient Instructions: - Continue taking losartan and atorvastatin as prescribed. - Slow down during physical activity to manage myocardial bridging symptoms. - Follow dietary recommendations to manage prediabetes, focusing on reducing sugar and carbohydrate intake. - Use lactate milk and avoid cheese to manage lactose intolerance. - Schedule follow-up imaging for breast lump in six months.
[2025-03-14 09:46] VITALS: BP 130/71; PULSE 59; RESP 16; TEMP 36.2; O2SAT 98; BMI 36.1
--- OUTSIDE RECORDS SUMMARY | 2025-03-14 09:47 | XMS_ITS | Clinical Summary ---
Author Organization [facility] Address [address] [place] [address] Phone Care Team Providers Care Parts Sales Manager Name Role Phone Dung Briceño MD Primary Care Provider [phone] Allergies Active Allergy Reactions Criticality Noted Date Comments Adhesive Rash Low 02/26/2025 Oxycodone-Acetaminophen 05/26/2019 Medications metoclopramide HCl 10 mg ODT Take 10 mg by mouth 4 (four) times a day. Active metoprolol succinate (TOPROL-XL) 100 MG 24 hr tablet Take 100 mg by mouth daily. Active omeprazole (PRILOSEC) 20 MG capsule Take 20 mg by mouth daily. Active atorvastatin (LIPITOR) 10 MG tablet Take 10 mg by mouth daily. Active ibuprofen (ADVIL,MOTRIN) 800 MG tablet Take 800 mg by mouth every 6 (six) hours as needed for pain (specific location in comments). Active estradioL (CLIMARA) 0.1 mg/[address] 1 patch onto the skin once a week. Active hlnjjqrw-nyn-wa rrous gluconate (CENTRUM WITH IRON) 9 mg iron/15 mL Liqd Take 15 mL by mouth daily. Active omega 4-ncc-pgg-fish oil 1,000 mg (120 mg-180 mg) Cap Take 1 capsule by mouth daily. Active zinc sulfate 220 mg Tab Take 220 mg by mouth daily. Active losartan (COZAAR) 50 MG tablet 50 mg. Active magnesium oxide 500 mg magnesium Tab Take by mouth. A ctive PARoxetine (PAXIL) 10 MG tablet Take 10 mg by mouth. Active tiZANidine (ZANAFLEX) 2 MG tablet Take 2 mg by mouth 3 (three) times a day. 5 Active phenazopyridine (PYRIDIUM) 100 MG tablet Take 2 tablets (200 mg total) by mouth 3 (three) times a day as needed for pain (specific location in comments) (URINARY DISCOMFORT). 12 tablet 5 Active Additional Information Patient not taking.Reported on 02/26/2025 fexofenadine (RICCARDO ALLERGY) 60 MG tablet Riccardo 180mg Active zinc-vit C-pyridoxine, vit B6, 12-60-0.5 mg Lozg Zinc Active sulindac (CLINORIL) 200 MG tablet 1 tablet with food Orally Twice a day Active estradioL (VIVELLE-DOT) 0.1 mg/24 hr twice a week Acti ve aspirin 81 mg Cap 1 tablet Orally Once a day; Duration: 30 day(s) Active coenzyme Q10 (CO Q-10) 10 mg capsule Co Q 10 Active lactobacillus combination no.4 (PROBIOTIC) 3 billion cell Cap Probiotic Active omeprazole (PRILOSEC OTC) 20 MG tablet 2 (two) times a day. Active omeprazole 20 mg TbLD 1 capsule. Active omega 8-wug-skg-fish oil 1,000 mg (250 mg-750 mg)/5 mL Liqd [place] 3 Active metoprolol succinate (TOPROL-XL) 100 MG 24 hr tablet 1 capsule. Act jb calcium carbonate-vitam in D3 1,000 mg-20 mcg (800 unit) Tab Calcium Active estradioL (ESTRACE) 0.01 % (0.1 mg/gram) vaginal cream Place 2 g vaginally daily. Active nitrofurantoin (MACROBID) 100 MG capsule Take 1 capsule (100 mg total) by mouth 2 (two) times a day for 5 days. Take w food, yogurt, probiotics. Finish all. 10 capsule 5 02/26/20 25 amoxicillin-cla vulanate (AUGMENTIN) 500-125 mg per tablet Take 1 tablet (500 mg of amoxicillin total) by mouth 2 (two) times a day for 5 days. 10 tablet 5 03/03/20 25 Active Problems Problem Noted Date Diagnosed Date Neck pain 07/06/2020 Assessment & Plan (07/07/2020 11:46 AM EST): Proper posture and neck support during the day and for nighttime. Avoid prolonged bending or straining. Gentle, regular ROM, retching and muscle strengthening exercises. I printed examples of neck exercises with pictures and detailed instructions for home use after using warm pack or warm shower. Consider gentle massage versus chiropractic versus acupuncture versus formal PT with gentle traction. Primary osteoarthritis involving multiple joints 07/06/2020 Assessment & Plan (07/07/2020 11:42 AM EST): Joint protection, energy conservation. Gentle, regular exercise routine. Avoid falls, injuries, overuse. Keep body weight in ideal range for her height. She may benefit from topical cream such as Arnica, Biofreeze, Aspercreme versus medicated patches such as salonpas, icy hot patch 2-3 times daily and if necessary at bedtime x 3 weeks. Due to diffuse body pain around the joints and muscle with entirely normal inflammatory indices I suggested her trial of gabapentin versus amitriptyline but she prefers to continue current regimen for now. She agreed to have a new set of lab work to make sure that there are no interval changes since March 2020 since she feels worse. Vitamin D insufficiency 07/06/2020 Assessment & Plan (07/07/2020 11:40 AM EST): Serum level requested to make sure that she does not require additional supplementation particularly in view of prolonged prednisone intake. Plantar fasciitis of left foot 07/06/2020 Assessment & Plan (07/07/2020 11:43 AM EST): Continue gentle stretching and appropriate shoe wear with gel type heel cups inside while walking. Importance of regular stretching and weight management explained in details. She may benefit from topical creams and patches applied 2-3 times daily and if needed at bedtimex 3 weeks. Additional benefit may come from warm pool exercising or regular foot spa use with gentle massage every night. Chronic fatigue 07/06/2020 Assessment & Plan (07/07/2020 11:47 AM EST): Balance rest and activity. Sleep hygiene. Keep up-to-date with age-appropriate screenings and preventive strategies. Proper hydration and well-balanced nutritionally diet. Avoid falls, injuries, overuse. Keep engaged in regular hobbies/favorite activities. Myalgia 07/06/2020 Assessment & Plan (07/07/2020 11:44 AM EST): Keep well-hydrated. Well-balanced nutritionally diet. Gentle, regular stretching particularly after warm pack or warm shower. Gentle, regular massage of most painful, tight muscle. Class 2 obesity due to exces s calories without serious comorbidity with body mass index (BMI) of 35.0 to 35.9 in adult 07/06/2020 Assessment & Plan (07/07/2020 11:40 AM EST): Portion control. Limit concentrated sugars, saturated fats and calories in the diet. Keep well-hydrated. If unable to achieve expected goal consider formal dietary/nutritional support. On statin therapy 07/06/2020 Assessment & Plan (07/07/2020 11:47 AM EST): Monitor for muscle tenderness, swelling and weakness Encounters Date Type Department Care Team Description 02/27/2025 10:42 AM EDT - 02/27/2025 11:59 PM EDT Hospital Encounter [facility] [address] [place] [address] Radha Hyde PA-C Discharge Disposition: Home or Self Care 02/26/2025 12:30 PM EDT [facility] Visit [facility] [address] [address] Radha Hyde PA-C Acute cystitis without hematuria (Primary Dx); Diarrhea, unspecified type 02/20/2025 1:30 PM EDT Office Visit [facility] [address] [address] Christina Chung FNP Acute UTI (urinary tract infection) (Primary Dx) from Last 3 Months Social History Tobacco Use Types Packs/Day Years Used Date Smoking Tobacco: Former Cigarettes Smokeless Tobacco: Never Tobacco Cessation:Counseling Given: Not Answered Alcohol Use Standard Drinks/Week Comments Yes 0 (1 standard drink = 0.6 oz pur e alcohol) Education Answer Date Recorded Are you interested in more education? Not on brie e 12/23/2022 Are you concerned about learning? Not on file 12/23/2022 No 12/23/2022 No 12/23/2022 Digital Access Answer Date Recorded No 01/21/2023 No 01/21/2023 Reliable internet access at home? Not on file 01/21/2023 Device with a working camera? Not on file Comments Unknown Sex and Gender Information Value Date Recorded Sex Assigned at Not on file Legal Sex Female 4:00 PM EDT Gender Identity Not on file Sexual Orientation Not on file Last Filed Vital Signs Vital Sign Reading Time Taken Comments Blood Pressure 137/92 02/26/2025 1:41 PM EDT Pulse 55 02/26/2025 1:41 PM EDT Temperature 36.8 C (98.2 F) 02/26/2025 1:41 PM EDT Respiratory Rate 18 02/26/2025 1:41 PM EDT Oxygen Saturation 100% 02/26/2025 1:41 PM EDT Inhaled Oxygen Concentration - - Weight 95.3 kg (210 lb) 02/20/2025 1:34 PM EDT Height 165.1 cm (5' 5 ) 02/20/2025 1:34 PM EDT Body Mass Index 34.95 02/20/2025 1:34 PM EDT Plan of Treatment Health Maintenance Due Date Last Done Comments CREATININE LEVEL 1966 LIPID PANEL 1966 POTASSIUM LEVEL 1966 DEPRESSION SCREENING 1978 SMOKING Hx and SMOKELESS TOBACCO SCREENING 1979 HEPATITIS C SCREENING 01/24/1984 HIV ONE-TIME SCREENING (18-6 5 YEARS) 01/24/1984 SCREENING FOR DIABETES 2001 MAMMOGRAM 2006 COLOGUARD 2011 COLONOSCOPY 2011 COLORECTAL CANCER SCREENING 2011 FIT TEST 2011 FOBT 2011 SIGMOIDOSCOPY 2011 VIRTUAL COLONOSCOPY 2011 PNEUMOCOCCAL VACCINES (50+ years) (1 of 1 - PCV) 01/24/2016 ZOSTER VACCINES (1 of 2) 01/24/2016 COVID-19 VACCINE (4 - 2023-2 5 season) 2024 07/23/2021, 10/22/2020, 10/01/2020 Adult Td,Tdap Booster 10/25/2025 10/25/2015 HEPATITIS A VACCINES Aged Out No long er eligible based on patient's age to complete this topic HIB VACCINES Aged Out No longer eligi ble based on patient's age to complete this topic MENINGOCOCCAL VACCINES (ACWY) Aged Out No longer eligible based on patient's age to complete this topic MENINGOCOCCAL VACCINES (B) Aged Out N o longer eligible based on patient's age to complete this topic Medical Devices Not on file Procedures Procedure Name Priority Date/Time Associated Diagnosis Comments STOOL CULTURE Routine 02/27/2025 8:30 AM EDT Acute cystitis without hematuria C. DIFFICILE PCR Routine 02/27/2025 8:30 AM EDT Acute cystitis without hematuria URINE CULTURE Routine 02/26/2025 2:37 PM EDT Acute cystitis without hematuria POCT URINE DIPSTICK Routine 02/26/2025 1 :51 PM EDT URINE CULTURE Routine 02/20/2025 2:15 PM EDT Acute UTI (urinary tract infection) POCT URINE DIPSTICK Routine 02/20/2025 1 :39 PM EDT from Last 3 Months Results * C. DIFFICILE PCR (02/27/2025 8:30 AM EDT) C.DIFFICILE PCR Negative Negative [facility] C.DIFFICILE STRAIN PRESUMPTIVE NEGATIVE PRESUMPTIVE NEGATIVE [facility] Comment:Detection of 027/NAP 1/BI strains of C.difficile is presumptive and is solely for epidemiological purposes and is not intended to guide or monitor treatment of infections. Stool (Stool) 02/27/2025 8:3 0 AM EDT 02/27/2025 10:44 AM EDT us Radha Hyde PA-C MICROBIOLOGY - GENER AL ORDERABLES Final Result [facility] [address] [place] [address] * Stool culture (02/27/2025 8:30 AM EDT) [facility] Special Requests None 02/27/2025 10:42 AM EDT [facility] Stool Culture NO SALMONELLA, SHIGELLA OR CAMPYLOBACTER ISOLATED 03/02/2025 8:56 AM EDT [facility] Stool (Stool) 02/27/2025 8:3 0 AM EDT 02/27/2025 10:44 AM EDT Radha Hyde PA-C MICROBIOLOGY - GENER AL ORDERABLES Final Result Performing Organization Address [facility] Co de Phone Number [address] [address] * (ABNORMAL) Urine Culture (02/26/2025 2:37 PM EDT) Only the most recent of2 resultswithin the time period is included. [facility] Special Requests None 02/26/2025 2:37 PM EDT [facility] Urine Culture >100,000 colony forming units per mL MIXED MARLENY (3 OR MORE COLONY TYPES) Culture indicates contamination . Please resubmit if necessary.(A) 02/28/2025 8:03 AM EDT [facility] Urine (Urine) 02/26/2025 2:3 7 PM EDT 02/26/2025 3:43 PM EDT Radha Hyde PA-C MICROBIOLOGY - GENER AL ORDERABLES Final Result Performing Organization Address City/[facility]/ZIP Co de Phone Number [address] [address] * (ABNORMAL) POCT Urine Dipstick (Automated) (02/26/2025 1:51 PM EDT) Only the most recent of2 resultswithin the time period is included. Pathologist [facility] COLOR Yellow [facility] TURBIDITY Slightly Cloudy [facility] GLUCOSE, POCT Negative Negative [facility] KETONE, POCT Trace(A) Negative [facility] OCCULT BLOOD, POCT Negative Negative [facility] SPECIFIC GRAVITY, POCT 1.025 1.001 - 1.030 [facility] [place] ALBUMIN, POCT Trace(A) Negative [facility] [place] Bili Negative Negative [facility] Urobilinogen 0.2 <[address] [facility] [place] NITRITE, POCT Negative Negative [facility] PH, POCT 6.5 5.0 - 8.[address] [facility] [place] WBC SCREEN, POCT 1+(A) Negative [facility] [place] 02/26/2025 1:51 PM EDT 02/26/2025 1:53 PM EDT Radha Hyde PA-C POINT OF CARE TEST O RDERABLES Final Result [facility] [address] [address], [facility] [phone] from Last 3 Months Additional Health Concerns Infection Onset Date Last Indicated MDR-GN 02/20/2025 02/20/[address] [place] [place] [address] HMO [facility] HMO [facility] HMO Care Teams Parts Sales Manager Relationship Specialty Start Date End Date Dung Briceño MD [address] [place] [id number] PCP - General Internal Medicine 05/26/19 Additional Source Comments The information contained in this document represents components of the legal health record. It is not the complete legal health record.[facility]
--- OUTSIDE RECORDS SUMMARY | 2025-03-14 09:47 | XMS_ITS | Clinical Summary ---
Author Organization [facility] Address [address] [place] [address] Care Team Providers Care Oven Roaster Name Role Phone Dung Briceño MD Primary Care Provider [phone] Allergies Active Allergy Reactions Criticality Noted Date Comments Oxycodone 02/13/2019 itching Medications ASCORBIC ACID, VITAMIN C, ORAL Take by mouth. Active atorvastatin (LIPITOR) 10 mg tablet Take 10 mg by mouth daily. Active calcium carbonate/vitam in D3 (CALCIUM CARBONATE-VITAM IN D PO) Take by mouth. Activ e docusate sodium (COLACE) 100 mg capsule Take 1 capsule (100 mg total) by mouth 2 (two) times a day. 4 Active docosahexaenoic acid/epa (FISH OIL ORAL) by Does not apply route. Active ibuprofen (ADVIL,MOTRIN) 800 mg tablet Take 1 tablet (800 mg total) by mouth every 8 (eight) hours if needed. 4 Active magnesium oxide 500 mg magnesium tablet Take by mouth. Activ e metoprolol succinate (TOPROL-XL) 100 mg 24 hr tablet Take 100 mg by mouth daily. Active omeprazole (PriLOSEC) [address] capsule 8 Active POLYETHYLENE GLYCOL 3350 ORAL 4 Active calcium carb/vit D3/minerals (CALCIUM-VITAMI N D ORAL) Take by mouth. Activ e losartan (COZAAR) 50 mg tablet Take 1 tablet (50 mg total) by mouth 1 (one) time each day. Active PARoxetine (PAXIL) 10 mg tablet Take 1 tablet (10 mg total) by mouth 1 (one) time each day in the morning. 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 Discussed option for Paxil, Effexor and Clonidine and reviewed their expected SE. I discussed hormone therapy and reviewed the findings of the WHI. I discussed risks including cardiovascular disease- [place], DVT, stroke. I discussed small increased risk of breast cancer in women with uterus who use progestin for endometrial protection, not applicable to her. I explained risk of DVT can be decreased by taking estradiol transdermally. I explained that risk of heart disease in WHI was highest in women who were 10 years or more out from menopause. A newer non-hormonal option is Veozah. I explained it is a relatively new medication and thus does not have press tender long goods safety data. However, the literature I have read, suggests it is overall safe. Most common SE is abdominal pain, diarrhea, insomnia, but uncommon overall. Can cause elevated transaminases and thus it is recommended that these be tested to ensure normal before starting and monitored at 3, 6, 9 months after starting. I also discussed that the cost may be prohibitive due to newness. May require a PA and take time to be approved. She was counseled that I would generally recommend trying a non- hormonal method without cardiovascular risks first. She voiced understanding of my counseling and desired to start Paxil. We reviewed her healthy history and she seems to be a reasonable risk. She will follow up in the office in 3 months. Hot flashes 01/26/2023 Overview (06/09/2024): Last Assessment [...] Encounters Date Type Department Care Team Description 02/20/2025 Telephone Urogynecology - [address] [phone] Shira Chua MD PROVIDER CALL BACK 12/13/2024 8:45 AM EDT Office Visit Obstetrics and Gynecology - [address] [phone] Tali Willson MD Vasomotor symptoms due to menopause (Primary Dx); Vaginal atrophy; Primary hypertension from Last 3 Months Surgical History Surgery Date Site/Laterality Comments OTHER SURGICAL HISTORY PROCEDURE: HISTORICAL PELVISCOPY VAGINAL DELIVERY PROCEDURE: [place] VAGINAL DELIVERY ONLY; COMMENT: x3 OTHER SURGICAL HISTORY 2002 PROCEDURE: [place] TOTAL ABDOMINAL HYSTERECT W/WO RMVL TUBE OVARY; [...] for your loved ones. For example, child adolescent care or elderly care for an older [...] Sexual Orientation Not on file Obstetrics History Para Term AB IAB SAB Ectopic Multiple Livin g Live Births 3 3 3 3 3 Date Outcome GA Total Labor Labor/2nd/3rd Weight Sex Type Anes PTL Esther A1 A5 Name Clin 987 Term 40w 0d 2977 g (105 oz) F Vag-S pont Livin g Jennie Delivery Location:[facility] Comments:uncompl 989 Term 40w 0d 2778 g (98 oz) F Vag-S pont Livin g Michaela Delivery Location:[facility] Comments:uncompl 991 Term 40w 0d 4252 g (150 oz) M Vag-S pont Livin g Hasmukh Delivery Location:[facility] Comments:uncompl Last Filed Vital Signs Vital Sign Reading Time Taken Comments Blood Pressure 145/70 12/13/2024 2:03 PM EDT Pulse 60 12/13/2024 8:48 AM EDT Temperature - - Respiratory Rate 12 12/13/2024 8:48 AM EDT Oxygen Saturation - - Inhaled Oxygen Concentration - - Weight 101 kg (222 lb) 12/13/2024 8:48 AM EDT Height 165.1 cm (5' 5 ) 12/13/2024 8:48 AM EDT Body Mass Index 36.94 12/13/2024 8:48 AM EDT Plan of Treatment Health Maintenance Due [...] Annual BMP Blood Test 08/11/2022 COVID-19 Vaccine (4 - 2023-2 5 season) 2024 07/23/2021, 10/22/2020, 10/01/2020 Influenza Vaccine (#1) 2025 , 06/17/2023, 06/11/2022 DTaP,Tdap,and Td Vaccines (2 - Td or Tdap) 10/25/2025 10/25/2015 Social Influencers of Health Screening 12/07/2025 12/07/2024 Colorectal Cancer Screening: Colonoscopy 01/20/2027 01/20/2017 RSV Immunization Adult Patients (1 - 1-dose 75+ series) 2041 Depression Screening Completed 12/07/2024 HIB Vaccines Aged Out No longer eligi [...] Most Recently Relevant to Health Maintenance Insurance [address] [place] [address] Care Teams Oven Roaster Relationship Specialty Start Date End Date Dung Briceño MD [address] [place] [address] PCP - General 03/05/04
--- OUTSIDE RECORDS SUMMARY | 2025-03-14 09:47 | XMS_ITS | Patient Health Record ---
Author Organization [facility] Address [address] [place] [address] Care Team Providers Care Zinc Plating Machine Operator Name Role Phone Dung Briceño MD Primary Care Provider Unavailab Julio Wilcox Unavailable [phone] Allergies Allergen (clinical drug ingredient) Drug/Non Drug Allergy documented on EMR Reaction Allergy Type Onset Date Status acetaminophen / oxycodone Percocet itchy Drug Allergy Active adhesive tape rash Drug Allergy Act jb Reason For Referral No Information Medications Medication SIG (Take, Route, Frequency, Duration) Notes Start Date End Date Status [place] 3 Active Probiotic Active Aspir-81 81 MG [...] W/U Status Risk Notes Problem Plantar wart (47335624) Plantar wart (B07.0) Active confirmed Plan Of Treatment Pending Test Test Name Order Date [id number] Destruction, 09-1006/10/2011 80420-Rwwo Destruction, 09-1006/24/2011 40779-Rfhp Destruction, 09-1007/08/2011 54317-Luvj Destruction, 09-1007/29/2011 81664-Mkmw Destruction, 09-1009/02/2011 63161-Acku Destruction, 09-1009/23/2011 45642-Plmr Destruction, 09-1002/01/2019 52421-Ldpafxhy Plate 07/29/2011 [id number]-Arcglkxu Plate 09/02/2011 [id number]-Ssqbwbfs Plate Each Additional 09/2010 95152,T1976-GDR TENDON SHEATH/LIGAMENT 0 04/04/2014 Insurance Providers Payer Name Payer Address Payer Phone Subscriber Number Group Number Insured Name Patient Relationship to Insured Coverage Start Date Coverage End Date [facility] [address] [place] [address] [id number] Stefanie Goins Self - patient is the [...]
== END 2025-03-14 10:31 | disposition home or self-care (01) ==
LOC: HO.HMCSH 09:40
PROVIDERS: PCP Internal Medicine; Visit Provider Physician Assistant Medical
DX: E78.5 Hyperlipidemia, unspecified (principal); Q24.5 Malformation of coronary vessels; N63.0 Unspecified lump in unspecified breast; I10 Essential (primary) hypertension; R73.03 Prediabetes; E73.9 Lactose intolerance, unspecified

== ENCOUNTER → 2025-03-14 09:40 | Outpatient (BNVA) | payer OTHER, SELFPAY | PROVIDERS: PCP Internal Medicine; Visit Provider Physician Assistant Medical | DX: Z76.89 Persons encountering health services in other specified circumstances (principal); I10 Essential (primary) hypertension; E78.5 Hyperlipidemia, unspecified; R73.03 Prediabetes; E73.9 Lactose intolerance, unspecified; N63.10 Unspecified lump in the right breast, unspecified quadrant; Q24.5 Malformation of coronary vessels; Z79.899 Other long term (current) drug therapy; Z13.31 Encounter for screening for depression; Z13.39 Encounter for screening examination for other mental health and behavioral disorders | CPT/HCPCS: 83036; 96127 ==

== ENCOUNTER 2025-03-18 07:11 | Outpatient (REF) | payer OTHER, SELFPAY ==
--- OUTSIDE RECORDS SUMMARY | 2025-03-18 07:13 | XMS_ITS | Clinical Summary ---
Author Organization [email or web address] Address [address] [place] [address] Care Team Providers Care Environmental Program Manager Name Role Phone Dung Briceño MD Primary Care Provider [phone] Allergies Active Allergy Reactions Criticality Noted Date [...] WHI. I discussed risks including cardiovascular disease- [place], DVT, stroke. I discussed small increased risk [...] new medication and thus does not have long term care administrator safety data. However, the literature I have [...] Department Care Team Description 02/20/2025 Telephone Urogynecology [address] [phone] Shira Chua MD PROVIDER CALL BACK from Last 3 Months Surgical History Surgery Date Site/Laterality Comments OTHER SURGICAL HISTORY PROCEDURE: HISTORICAL PELVISCOPY VAGINAL DELIVERY PROCEDURE: [place] VAGINAL DELIVERY ONLY; COMMENT: x3 OTHER SURGICAL HISTORY 2001 PROCEDURE: [place] TOTAL ABDOMINAL HYSTERECT W/WO RMVL TUBE OVARY; [...] care for your loved ones. For example, children's ministries director or elderly care for an older adult? [...] F Vag-S pont Livin g Jennie Delivery Location:[facility] Comments:uncompl 989 Term 40w 0d 2778 g (98 oz) F Vag-S pont Livin g Michaela Delivery Location:[facility] Comments:uncompl 991 Term 40w 0d 4252 g (150 oz) M Vag-S pont Daiana Noe Delivery Location[facility] Comments:uncompl Last Filed Vital Signs [...] Anatomical Region Laterality Modality Other Historical Provider MD HEALTH MAINTENANCE Final Result from Last 3 Months or Most Recently Relevant to Health Maintenance Insurance [facility] [address] [place] [address] Care Teams Environmental Program Manager Relationship Specialty Start Date End Date Dung Briceño MD [address] [place] [address] PCP - General 03/05/04
--- OUTSIDE RECORDS SUMMARY | 2025-03-18 07:13 | XMS_ITS | Clinical Summary ---
Author Organization [facility] Address [address] [place] [address] Phone Care Team Providers Care Trolley Car Mechanic Name Role Phone Radha Hyde PA-C Primary Care Provid er Allergies Active Allergy Reactions Criticality Noted Date [...] onto the skin once a week. Active btiwzjws-who-tr rrous gluconate (CENTRUM WITH IRON) 9 mg iron/15 mL Liqd Take 15 mL by mouth daily. Active omega 3-eyj-kpg-fish oil 1,000 mg (120 mg-180 mg) Cap [...] 20 mg TbLD 1 capsule. Active omega 3-zxa-esd-fish oil 1,000 mg (250 mg-750 mg)/5 mL Liqd [place] 3 Active metoprolol succinate (TOPROL-XL) 100 MG [...] 11:59 PM EDT Hospital Encounter [facility] [address] [place] [address] Radha Hyde PA-C Discharge Disposition: Home or Self Care 02/26/2025 12:30 PM EDT [facility] [address] [address] Radha Hyde PA-C Acute cystitis without hematuria (Primary Dx); Diarrhea, unspecified type 02/20/2025 1:30 PM EDT Office Visit [facility] [address] [address] Christina Chung FNP Acute UTI (urinary tract [...] 8:30 AM EDT) C.DIFFICILE PCR Negative Negative [facility] C.DIFFICILE STRAIN PRESUMPTIVE NEGATIVE PRESUMPTIVE NEGATIVE [facility] Comment:Detection of 027/NAP 1/BI strains of C.difficile is presumptive and is solely for epidemiological purposes and is not intended to guide or monitor treatment of infections. Stool (Stool) 02/27/2025 8:3 0 AM EDT 02/27/2025 10:44 AM EDT us Radha Hyde PA-C MICROBIOLOGY - GENER AL ORDERABLES Final Result [address] [address] * Stool culture (02/27/2025 8:30 AM EDT) Pathologist [facility] Special Requests None 02/27/2025 10:42 AM EDT [facility] Stool Culture NO SALMONELLA, SHIGELLA OR CAMPYLOBACTER ISOLATED 03/02/2025 8:56 AM EDT [facility] Stool (Stool) 02/27/2025 8:3 0 AM EDT 02/27/2025 10:44 AM EDT Radha Hyde PA-C MICROBIOLOGY - GENER AL ORDERABLES Final Result Performing Organization Address [facility] Co de Phone Number [address] [address] * (ABNORMAL) Urine Culture (02/26/2025 2:37 PM EDT) Only the most recent of2 resultswithin the time period is included. [facility] Special Requests None 02/26/2025 2:37 PM EDT [facility] Urine Culture >100,000 colony forming units per mL MIXED MARLENY (3 OR MORE COLONY TYPES) Culture indicates contamination . Please resubmit if necessary.(A) 02/28/2025 8:03 AM EDT [facility] Urine (Urine) 02/26/2025 2:3 7 PM EDT 02/26/2025 3:43 PM EDT Radha Hyde PA-C MICROBIOLOGY - GENER AL ORDERABLES Final Result [address] [address] * (ABNORMAL) POCT Urine Dipstick (Automated) (02/26/2025 1:51 PM EDT) Only the most recent of2 resultswithin the time period is included. Pathologist [facility] COLOR Yellow [facility] TURBIDITY Slightly Cloudy [facility] GLUCOSE, POCT Negative Negative [facility] KETONE, POCT Trace(A) Negative [facility] OCCULT BLOOD, POCT Negative Negative [facility] SPECIFIC GRAVITY, POCT 1.025 1.001 - 1.030 [facility] ALBUMIN, POCT Trace(A) Negative [facility] Bili Negative Negative [facility] Urobilinogen 0.2 <1.0 [facility] NITRITE, POCT Negative Negative [facility] PH, POCT 6.5 5.0 - 8.0 [facility] WBC SCREEN, POCT 1+(A) Negative [facility] 02/26/2025 1:51 PM EDT 02/26/2025 1:53 PM EDT Radha Hyde PA-C POINT OF CARE TEST O RDERABLES Final Result [facility] [address] [address], [facility] [phone] from Last 3 Months Additional Health Concerns Infection Onset Date Last Indicated 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 It is not the complete legal health record.[facility]
--- OUTSIDE RECORDS SUMMARY | 2025-03-18 07:13 | XMS_ITS | Patient Health Record ---
Author Organization [facility] Address [address] [place] [address] Care Team Providers Care Dimension Specification Inspector Name Role Phone Dung Briceño MD Primary Care Provider Unavailab Julio Wilcox Unavailable [phone] Allergies Allergen (clinical drug ingredient) Drug/Non Drug Allergy documented on EMR Reaction Allergy Type Onset Date Status acetaminophen / oxycodone Percocet itchy Drug Allergy Active adhesive tape rash Drug Allergy Act jb Reason For Referral No Information Medications Medication SIG (Take, Route, Frequency, Duration) Notes Start Date End Date Status [place] 3 Active Probiotic Active Aspir-81 81 MG [...] W/U Status Risk Notes Problem Plantar wart (73352164) Plantar wart (B07.0) Active confirmed Plan Of Treatment Pending Test Test Name Order Date 43425-Lpqm Destruction, 09-1006/10/2011 32738-Mkgn Destruction, 09-1006/24/2011 57729-Jaku Destruction, 09-1007/08/2011 73323-Uusj Destruction, 09-1007/29/2011 67849-Dquq Destruction, 09-1009/02/2011 81968-Ncjf Destruction, 09-1009/23/2011 04294-Urbq Destruction, 09-1002/01/2019 62901-Ktvywgtm Plate 07/29/2011 48418-Fkyzofcu Plate 09/02/2011 28492-Lzyvmalg Plate Each Additional 09/2010 [id number] TENDON SHEATH/LIGAMENT 0 04/04/2014 Insurance Providers Payer Name Payer Address Payer Phone Subscriber Number Group Number Insured Name Patient Relationship to Insured Coverage Start Date Coverage End Date [facility] [address] [place] [address] [id number] Stefanie Goins Self - patient is the [...]
[2025-03-18 08:55] LABS: Alanine Aminotransferase 32 U/L (0-31); Albumin Level 4.6 g/dL (3.5-5.0); Alkaline Phosphatase 96 U/L (39-117); Aspartate Amino Transferase 33 U/L (5-31); Cholesterol 185 mg/dL (<200); HDL Cholesterol 48 mg/dL (>40); Magnesium 2.0 mg/dL (1.6-2.6); Total Protein 7.1 g/dL (6.5-8.0); Triglycerides 102 mg/dL (<150)
[2025-03-18 09:23] LABS: Folate 12.7 ng/mL (> or = 4.0); Vitamin B12 1827 pg/mL (200-900)
== END 2025-03-18 07:12 | disposition home or self-care (01) ==
LOC: HO.LAB 07:11
PROVIDERS: PCP Internal Medicine; Visit Provider Physician Assistant Medical
DX: Z00.00 Encounter for general adult medical examination without abnormal findings (principal)
CPT/HCPCS: 36415; 80061; 80076; 82306; 82607; 82746; 83735; 84443; 86140

== ENCOUNTER 2025-05-19 08:51 | Outpatient (AMB) | payer OTHER, SELFPAY ==
--- OUTSIDE RECORDS SUMMARY | 2024-06-20 09:48 | XMS_ITS | Encounter Summary ---
Author Organization [facility] [place] [address] Care Team Providers Care Duplicating Machine Operator Name Role Phone Dung Briceño MD Primary Care Provider [phone] Encounter Details Date Type Department Care Team (Latest Contact Info) Description 06/20/2024 9:48 AM EDT Hospital Encounter TH HISTORIC ENCOUNTERS [facility] ONLY Nam Chua MD [address] [place] [address] [address] [place] [address] Unspecified cystostomy status (CMS/HCC V24, CMS/HCC V28) [...] your loved ones. For example, early childhood special educator or elderly care for an older adult? [...] 11:50 AM EDT Unspecified cystostomy status ([facility] V24, [facility] V28) documented in this encounter Results * CR CYSTOGRAM VOIDING (06/21/2024 11:50 AM EDT) Anatomical Region Laterality Modality Radiographic Juliann ging 06/20/2024 10:0 6 AM EDT Narrative 06/21/2024 11:50 AM EDT [facility] Diagnostic Imaging Department [address] [place] [address] Patient: STEFANIE GOINS /Age/Sex: 1965 - 59 - F Unit#: [id number] Location/Status: SPDIGEN/REG CLI Mnemonic/Ordering Site: CYSTOVOID/SPDI Ordering [...] Note Arin Banda MD - 06/29/2024 [facility] Diagnostic Imaging Department [address] [place] [address] Patient: STEFANIE GOINS /Age/Sex: 1965 - 59 - F Unit#: [id number] Location/Status: SPDIGEN/REG CLI Mnemonic/Ordering Site: CYSTOVOID/SPDI Ordering [...] Dictating Physician: ARIN BANDA Electronically Signed by: VERONIKA,ARIN S Dic Date/Time: 06/20/24 1241 Sign date/Time: 06/21/24 1150 Nam Chua MD IMG XR PROCEDURES Final Result documented in this encounter Visit Diagnoses Diagnosis Unspecified cystostomy status ([facility] V24, [facility] V28) Unspecified cystostomy status documented in this encounter Care Teams Duplicating Machine Operator Relationship Specialty Start Date End Date Dung Briceño MD [address] [place] [address] [place] PCP - General 03/05/04 documented as of this encounter
[2025-05-19 08:56] VITALS: BMI 37.6
--- NOTE | 2025-05-19 08:56 | A.OFFVIS_ITS ---
Vital Signs 05/19/25 08:56 Height 5 ft 5 in Weight 226 lb BMI 37.6 Intake Visit Reasons: OV- S/P Left Knee Gel-One Intake Note: Setfanie is a 60 year old female who presents today for a follow up of her Bilateral Knee OA. We last saw her on 01/30/25 for a Left Gel-One Injection. States injection helped relief some pain however she is experiencing pain behind her knee, feels like it might be a cyst and feels like her knee will give out when standing from a sitting position. Hx Left Knee 06/2019 KI Allergies oxycodone (Percocet) Allergy (Intermediate, Verified 05/19/25 09:03) Itchiness LATEX GLUE Allergy (Intermediate, Uncoded 05/19/25 09:03) redness and inflammation HPI HPI OV- S/P Left Knee Gel-One: Details: Stefanie is a 60 year old female who presents today for a follow up of her Bilateral Knee OA. We last saw her on 01/30/25 for a Left Gel-One Injection. States injection helped relief some pain however she is experiencing pain behind her knee, feels like it might be a cyst and feels like her knee will give out when standing from a sitting position. This is bothersome for her. Hx Left Knee 06/2019 KI. Is on her feet all day and can walk for long distances.. Takes ibuprofen semi regularly. Uses ice. [facility] Medical History (Updated 04/24/25 @ 12:49 by Arminda Umana PA-C) Abdominal pain History of mammogram (~09/05/24) Lactose intolerance Prediabetes Breast lump Hyperlipidemia Hypertension Myocardial bridge Establishing care with new doctor, encounter for Family history of breast cancer Lump of right breast Diarrhea Arthritis Elevated cholesterol GERD (gastroesophageal reflux disease) Essential hypertension Surgical History History of hysterectomy History of bladder surgery (~06/2024) Hx of arthroscopy of left knee Hx of foot surgery History of bilateral carpal tunnel release History of lumpectomy of left breast History of total hysterectomy History of cardiac catheterization (~05/16/18) Family History Father Brain cancer Mother Status post placement of cardiac pacemaker Breast cancer PONV (postoperative nausea and vomiting) Social History Housing: House Are you a primary hospice care consultant to a significant other at home: No Do you presently have visiting nurse or other home services: No Alcohol intake: current Alcohol intake frequency: a few times a month Comment: aware of trip hazard Patient Tobacco Use Status: Former Tobacco user service: No Current occupational status: employed Cognitive needs: No Hearing needs: No Vision needs: Yes (rx glasses) Physical Exam Exam Exam: NAD mild effusion pain with PFP grind minimal joitn line tenderness Vital Signs: BMI result Body Mass Index 37.6 Assessment & Plan Assessment & Plan (1) Osteoarthritis of patellofemoral joint: Code(s): M17.10 - Unilateral primary osteoarthritis, unspecified knee Category: Medical Plan: 60 yo 3 mo s/p left gel injection. Complains of mild swelling and giving way with anterior knee pain. Wants to repeat gel but not sure of time frame. Will investigate with insurance and contact patient. Steroid have not been helpful. Continue strengthening and f/u 3 months (+/- gel at that time). Coding Level of Care Code Est Pt Level 3 (22016) Diagnoses Osteoarthritis of patellofemoral joint M17.10
--- OUTSIDE RECORDS SUMMARY | 2025-05-19 10:14 | XMS_ITS | Clinical Summary ---
Author Organization [facility] Address [address] [facility] [address] [place] [address] Phone Care Team Providers Care Dealer Development Manager Name Role Phone Radha Hyde PA-C Primary [...] onto the skin once a week. Active ophrwkci-jgo-pfy mary gluconate (CENTRUM WITH IRON) 9 mg iron/15 mL Liqd Take 15 mL by mouth daily. Active omega 7-dsm-wkd-fish oil 1,000 mg (120 mg-180 mg) Cap Take 1 capsule by mouth daily. Active zinc sulfate 220 mg Tab Take 220 mg by mouth daily. Active losartan (COZAAR) 50 MG tablet 50 mg. Active magnesium oxide 500 mg magnesium Tab Take by mouth. Activ e PARoxetine (PAXIL) 10 MG tablet Take 10 mg by mouth. 5 Active tiZANidine (ZANAFLEX) 2 MG tablet Take [...] no.4 (PROBIOTIC) 3 billion cell Cap Probiotic Act jb omeprazole (PRILOSEC OTC) 20 MG tablet 2 (two) times a day. Active omeprazole 20 mg TbLD 1 capsule. Active omega 0-zsf-vww-fish oil 1,000 mg (250 mg-750 mg)/5 mL Liqd [place] 3 Active metoprolol succinate (TOPROL-XL) 100 MG 24 hr tablet 1 capsule. Act jb calcium carbonate-vitami n D3 1,000 mg-20 mcg (800 unit) Tab Calcium Active estradioL (ESTRACE) 0.01 % (0.1 mg/gram) vaginal cream Place 2 g vaginally daily. Active Active Problems Problem Noted Date Diagnosed [...] Encounters Date Type Department Care Team Description 04/16/2025 Transcribe Orders [facility] [address] [place] [address] [place] [address] Arminda Umana PA 02/27/2025 10:42 AM EDT - 02/27/2025 11:59 PM EDT Hospital Encounter [address] [address] Radha Hyde PA-C Discharge Disposition: Home or Self Care 02/26/2025 12:30 PM EDT Office Visit [facility] [address] [address] Radha Hyde PA-C Acute cystitis without hematuria (Primary Dx); Diarrhea, unspecified type 02/20/2025 1:30 PM EDT Office Visit [facility] [address] [address] Christina Chung FNP Acute UTI (urinary tract [...] 02/20/2025 1:34 PM EDT Plan of Treatment Upcoming Encounters Date Type Department Care Team (Late st Contact Info) Description 05/21/2025 9:00 AM EDT Office Visit [facility] [address] [place] [address] [place] [address] Lilia Olivas MD [address] [facility] [address], [address] [place] [address] [email or web address] Health Maintenance Due Date Last Done Comments [...] 01/24/2016 ZOSTER VACCINES (1 of 2) 01/24/2016 INFLUENZA VACCINE (#1) 2025 , 06/17/2023, 06/11/2022 COVID-19 VACCINE (4 - 2024-2 6 season) 2025 07/23/2021, 10/22/2020, 10/01/2020 Adult Td,Tdap Booster 10/25/2025 [...] 8:30 AM EDT) C.DIFFICILE PCR Negative Negative [facility] C.DIFFICILE STRAIN PRESUMPTIVE NEGATIVE PRESUMPTIVE NEGATIVE [facility] Comment:Detection of 027/NAP 1/BI strains of C.difficile is presumptive and is solely for epidemiological purposes and is not intended to guide or monitor treatment of infections. Stool (Stool) 02/27/2025 8:3 0 AM EDT 02/27/2025 10:44 AM EDT Radha Hyde PA-C MICROBIOLOGY - GENER AL ORDERABLES Final Result Performing Organization Address City/[facility]/ZIP Co de Phone Number [address] [address] * Stool culture (02/27/2025 8:30 AM EDT) Special Requests None 02/27/2025 10:42 AM EDT [facility] Stool Culture NO SALMONELLA, SHIGELLA OR CAMPYLOBACTER ISOLATED 03/02/2025 8:56 AM EDT [facility] Stool (Stool) 02/27/2025 8:3 0 AM EDT 02/27/2025 10:44 AM EDT Radha Hyde PA-C MICROBIOLOGY - GENER AL ORDERABLES Final Result Performing Organization Address [facility] de Phone Number [address] [address] * (ABNORMAL) Urine Culture (02/26/2025 2:37 PM EDT) Only the most recent of2 resultswithin the time period is included. Special Requests None 02/26/2025 2:37 PM EDT [facility] Urine Culture >100,000 colony forming units per mL MIXED MARLENY (3 OR MORE COLONY TYPES) Culture indicates contamination . Please resubmit if necessary.(A) 02/28/2025 8:03 AM EDT [facility] Urine (Urine) 02/26/2025 2:3 7 PM EDT 02/26/2025 3:43 PM EDT Radha Hyde PA-C MICROBIOLOGY - GENER AL ORDERABLES Final Result Performing Organization Address [facility] Co de Phone Number [address] [address] * (ABNORMAL) POCT Urine Dipstick (Automated) (02/26/2025 1:51 PM EDT) Only the most recent of2 resultswithin the time period is included. COLOR Yellow [facility] TURBIDITY Slightly Cloudy [facility] GLUCOSE, POCT Negative Negative [facility] KETONE, POCT Trace(A) Negative [facility] OCCULT BLOOD, POCT Negative Negative [facility] SPECIFIC GRAVITY, POCT 1.025 1.001 - 1.030 [facility] ALBUMIN, POCT Trace(A) Negative [facility] Bili Negative Negative [facility] Urobilinogen 0.2 <1.0 [facility] NITRITE, POCT Negative Negative [facility] PH, POCT 6.5 5.0 - 8.0 [facility] WBC SCREEN, POCT 1+(A) Negative [facility] 02/26/2025 1:51 PM EDT 02/26/2025 1:53 PM EDT us Radha ARECHIGA-Lang POINT OF CARE TEST O RDERABLES Final Result [facility] [address] [address], [facility] [phone] from Last 3 Months Additional Health Concerns Infection Onset Date Last Indicated MDR-GN 02/20/2025 02/20/[address] [place] [address] [place] [address] [place] [address] [place] [address] [facility] HMO [facility] HMO Care Teams Dealer Development Manager Relationship Specialty Start Date End Date Radha Hyde PA-C [address] [place] [address] [email or web address] PCP - General Physician Professor Of Art History 02/26/25 Additional Source Comments The information contained in this document represents components of the legal health record. It is not the complete legal health record.[facility]
--- OUTSIDE RECORDS SUMMARY | 2025-05-19 10:14 | XMS_ITS | Clinical Summary ---
Author Organization [facility] Address [address] [place] [address] Care Team Providers Care Transportation Refrigeration Technician Name Role Phone Dung Briceño MD Primary Care Provider [phone] Allergies Active Allergy Reactions Criticality Noted Date Comments Latex 03/18/2025 Oxycodone 02/13/2019 itching Medications ASCORBIC ACID, VITAMIN [...] Active POLYETHYLENE GLYCOL 3350 ORAL 4 Active losartan (COZAAR) 50 mg tablet Take 1 [...] WHI. I discussed risks including cardiovascular disease- NM, DVT, stroke. I discussed small increased risk [...] new medication and thus does not have care home safety data. However, the literature I have [...] Encounters Date Type Department Care Team Description 03/18/2025 Telephone Gastroenterology - [address] [place] [address] Sarah Arnold MD 02/20/2025 Telephone Urogynecology - [address] [phone] Shira Chua MD from Last 3 Months Surgical History Surgery Date Site/Laterality Comments OTHER SURGICAL HISTORY PROCEDURE: HISTORICAL PELVISCOPY VAGINAL DELIVERY PROCEDURE: [place] VAGINAL DELIVERY ONLY; COMMENT: x3 OTHER SURGICAL HISTORY 2001 PROCEDURE: [place] TOTAL ABDOMINAL HYSTERECT W/WO RMVL TUBE OVARY; [...] for your loved ones. For example, child life therapist or elderly care for an older adult? [...] F Vag-S pont Livin g Jennie Delivery Location:[facility] Comments:uncompl 989 Term 40w 0d 2778 g (98 oz) F Vag-S pont Livin g Michaela Delivery Location:[facility] Comments:uncompl 991 Term 40w 0d 4252 g (150 oz) M Vag-S pont Livin g Hasmukh Delivery Location:[facility] Comments:uncompl Last Filed Vital Signs Vital Sign [...] Blood Test 08/11/2022 COVID-19 Vaccine (4 - 2024-2 6 season) 2025 07/23/2021, 10/22/2020, 10/01/2020 Influenza Vaccine (#1) 2025 , 06/17/2023, 06/11/2022 DTaP,Tdap,and Td Vaccines (2 - Td or Tdap) 10/25/2025 10/25/2015 Social Influencers of Health Screening 12/07/2025 12/07/2024 Colorectal Cancer Screening: Colonoscopy 01/20/2027 01/20/2017, 01/20/2017 RSV Immunization Adult Patients (1 - [...] Most Recently Relevant to Health Maintenance [place] [address] [address] [place] [address] Care Teams Transportation Refrigeration Technician Relationship Specialty Start Date End Date Dung Briceño MD [address] [place] [address] [place] PCP - General 03/05/04
--- OUTSIDE RECORDS SUMMARY | 2025-05-19 10:14 | XMS_ITS | Patient Health Record ---
[facility] Address [address] [place] [address] Care Team Providers Care Director Of Physical Education Name Role Phone Dung Briceño MD Primary Care Provider Unavailab Julio Wilcox Unavailable [phone] Allergies Allergen (clinical drug ingredient) Drug/Non Drug Allergy documented on EMR Reaction Allergy Type Onset Date Status acetaminophen / oxycodone Percocet itchy Drug Allergy Active adhesive tape rash Drug Allergy Act jb Reason For Referral No Information Medications Medication SIG (Take, Route, Frequency, Duration) Notes Start Date End Date Status [place] 3 Active Probiotic Active Aspir-81 81 MG [...] W/U Status Risk Notes Problem Plantar wart (61802464) Plantar wart (B07.0) Active confirmed Plan Of Treatment Pending Test Test Name Order Date 88575-Wgjy Destruction, 09-1006/10/2011 10298-Abcl Destruction, 09-1006/24/2011 17902-Vmqt Destruction, 09-1007/08/2011 72120-Zfkl Destruction, 09-1007/29/2011 00933-Ianv Destruction, 09-1009/02/2011 30957-Pdkg Destruction, 09-1009/23/2011 78637-Kgfq Destruction, 09-1002/01/2019 90583-Xggnodcl Plate 07/29/2011 93493-Majuavrm Plate 09/02/2011 09079-Fbgpgcfj Plate Each Additional 09/2010 [id number] TENDON SHEATH/LIGAMENT 0 04/04/2014 Insurance Providers Payer Name Payer Address Payer Phone Subscriber Number Group Number Insured Name Patient Relationship to Insured Coverage Start Date Coverage End Date [facility] [address] [place] [address] [id number] Stefanie Goins Self - patient is the [...]
== END 2025-05-19 09:25 | disposition home or self-care (01) ==
LOC: HO.HOS 08:51
PROVIDERS: PCP Internal Medicine; Visit Provider Orthopaedic Surgery
DX: M17.12 Unilateral primary osteoarthritis, left knee (principal)
CPT/HCPCS: 99213

== ENCOUNTER 2025-06-23 08:26 | Outpatient (REF) | payer OTHER, SELFPAY ==
--- OUTSIDE RECORDS SUMMARY | 2024-06-20 09:48 | XMS_ITS | Encounter Summary ---
Author Organization [facility] [place] [address] Care Team Providers Care Car Body Inspector Name Role Phone Dung Briceño MD Primary Care Provider [phone] Encounter Details Date Type Department Care Team (Latest Contact Info) Description 06/20/2024 9:48 AM EDT Hospital Encounter TH HISTORIC ENCOUNTERS [facility] ONLY Nam Chua MD [address] [place] [address] [address] [place] [address] Unspecified cystostomy status (CMS/HCC V24, CMS/HCC V28) [...] your loved ones. For example, early childhood services coordinator or elderly care for an older adult? [...] as of this encounter Plan of Treatment Upcoming Encounters Date Type Department Care Team (Late st Contact Info) Description 07/14/2025 10:45 AM EST Office Visit Orthopedic Surgery - [address] [place] [address] Adela Ovalles MD [address] [place] [address] documented as of this encounter Procedures Procedure Name Priority Date/Time Associated Diagnosis Comments CR CYSTOGRAM VOIDING Routine 06/21/2024 11:50 AM EDT Unspecified cystostomy status ([facility], [facility] V28) documented in this encounter Results * CR CYSTOGRAM VOIDING (06/21/2024 11:50 AM EDT) Anatomical Region Laterality Modality Radiographic Juliann ging 06/20/2024 10:0 6 AM EDT Narrative 06/21/2024 11:50 AM EDT [facility] Diagnostic Imaging Department [address] [place] [address] Patient: STEFANIE GOINS Alexandr Huynh/Age/Sex: 1965 - 59 - F Unit#: [id number] Location/Status: SPDIGEN/REG CLI Mnemonic/Ordering Site: CYSTOVOID/SPDI Ordering [...] Procedure Note Arin Banda MD - 06/29/2024 [facility] Diagnostic Imaging Department [address] [place], [place] [id number] Patient: STEFANIE GOINS D.O.B./Age/Sex: 1965 - 59 - F Unit#: [id number] Location/Status: SPDIGEN/REG CLI Mnemonic/Ordering Site: CYSTOVOID/SPDI Ordering [...] encounter Visit Diagnoses Diagnosis Unspecified cystostomy status ([facility] V24, [facility] V28) Unspecified cystostomy status documented in this encounter Care Teams Car Body Inspector Relationship Specialty Start Date End Date Dung Briceño MD [address] [facility] [place] PCP - General 03/05/04 documented as of this encounter
--- NOTE | ~2025-06-23 | US_ITS ---
CLINICAL HISTORY: R10.9 - Unspecified abdominal pain US abdomen complete Comparison: None provided Findings: The visualized pancreas is normal, tail is obscured by bowel gas. The visualized aorta and inferior vena cava are normal caliber. The liver is normal in size, right lobe length is 16.5 cm. Normal in echogenicity, no discrete lesion is visualized in the imaged liver. No intrahepatic bile duct dilatation. The common duct is 4 mm in diameter. Physiologic distention of the gallbladder, no stone or sludge, focal gallbladder body wall thickening without abnormal vascular flow on the hepatic side, negative sonographic Tovar's sign. The main portal vein is patent with antegrade flow. The right kidney demonstrates 9 mm calculus in the lower pole, otherwise normal, 12.8 cm in length. The left kidney demonstrates simple cyst 1.6 cm in midpole , probable vascular calcification noted, otherwise normal, 12.4 cm in length. The spleen is mildly enlarged, 13.4 cm in length, no focal lesion is seen. No free fluid in the abdomen. Impression: 1. Nonobstructing right nephrolithiasis. 2. Mild splenomegaly. 3. Focal wall thickening of the gallbladder body, non-specific, may reflect adenomyomatosis, MRI can be helpful for further evaluation if warranted. This document has been electronically signed by: Courtney Penny MD on 06/23/2025 15:58:45
--- OUTSIDE RECORDS SUMMARY | 2025-06-23 08:43 | XMS_ITS | Patient Health Record ---
Author [facility] Address [address] [place] [address] Care Team Providers Care Tire Shop Mechanic Name Role Phone Dung Briceño MD Primary Care Provider Unavailab Julio Wilcox Unavailable [phone] Allergies Allergen (clinical drug ingredient) Drug/Non Drug Allergy documented on EMR Reaction Allergy Type Onset Date Status acetaminophen / oxycodone Percocet itchy Drug Allergy Active adhesive tape rash Drug Allergy Act jb Reason For Referral No Information Medications Medication SIG (Take, Route, Frequency, Duration) Notes Start Date End Date Status [place] 3 Active Probiotic Active Aspir-81 81 MG [...] W/U Status Risk Notes Problem Plantar wart (15383886) Plantar wart (B07.0) Active confirmed Plan Of Treatment Pending Test Test Name Order Date 21580-Xopr Destruction, 09-1006/10/2011 87344-Mvek Destruction, 09-1006/24/2011 57948-Ufkg Destruction, 09-1007/08/2011 53124-Lplw Destruction, 09-1007/29/2011 79961-Fcnz Destruction, 09-1009/02/2011 83186-Qxwo Destruction, 09-1009/23/2011 41290-Gkip Destruction, 09-1002/01/2019 72930-Qccruybs Plate 07/29/2011 26830-Qwzuurae Plate 09/02/2011 61973-Tzhpnyqd Plate Each Additional 09/2010 [id number] TENDON SHEATH/LIGAMENT 0 04/04/2014 Insurance Providers Payer Name Payer Address Payer Phone Subscriber Number Group Number Insured Name Patient Relationship to Insured Coverage Start Date Coverage End Date [facility] [address] [place] [address] [id number] Stefanie Goins Self - patient is the [...]
--- OUTSIDE RECORDS SUMMARY | 2025-06-23 08:43 | XMS_ITS | Clinical Summary ---
Author Organization [facility] Address [address] [facility] [address] [place] [address] Phone Care Team Providers Care Secretarial Teacher Name Role Phone Radha Hyde PA-C Primary Care Provid er Allergies Active Allergy Reactions Criticality Noted Date Comments Adhesive Rash Low 02/26/2025 Oxycodone-Acetaminophen 05/26/2019 Medications metoclopramide HCl 10 mg ODT Take 10 mg by mouth 4 (four) times a day. Active metoprolol succinate (TOPROL-XL) 100 MG 24 hr tablet Take 100 mg by mouth 2 (two) times a day. Active omeprazole (PRILOSEC) 20 MG capsule Take 20 mg by mouth daily. Active atorvastatin (LIPITOR) 10 MG tablet Take 10 mg by mouth daily. Active ibuprofen (ADVIL,MOTRIN) 800 MG tablet Take 800 mg by mouth every 6 (six) hours as needed for pain (specific location in comments). Active urvdgumr-klr-wod mary gluconate (CENTRUM WITH IRON) 9 mg iron/15 mL Liqd Take 15 mL by mouth daily. Active omega 5-vdr-xlz-fish oil 1,000 mg (120 mg-180 mg) Cap [...] Active Additional Information Patient not taking.Reported on 05/21/2025 fexofenadine (NANCY ALLERGY) 60 MG tablet Nancy 180mg Active zinc-vit C-pyridoxine, vit B6, 12-60-0.5 mg Lozg Zinc Active sulindac (CLINORIL) 200 MG tablet 1 tablet with food Orally Twice a day Active aspirin 81 mg Cap 1 tablet Orally Once a day; Duration: 30 day(s) Active coenzyme Q10 (CO Q-10) 10 mg capsule Co Q 10 Active lactobacillus combination no.4 (PROBIOTIC) 3 billion cell Cap Probiotic Act jb omeprazole (PRILOSEC OTC) 20 MG tablet 2 (two) times a day. Active omeprazole 20 mg TbLD 1 capsule. Active omega 8-bqz-lrg-fish oil 1,000 mg (250 mg-750 mg)/5 mL Liqd Chandler 3 Active metoprolol succinate (TOPROL-XL) 100 MG 24 hr tablet 1 capsule. Act jb calcium carbonate-vitami n D3 1,000 mg-20 mcg (800 unit) Tab Calcium Active omeprazole (PRILOSEC) 20 MG capsule Take 20 mg by mouth daily. Active atorvastatin (LIPITOR) 20 MG tablet Take 1 tablet by mouth every morning. 5 Active estradioL (VIVELLE-DOT) 0.025 mg/[address] 1 patch onto the skin 2 (two) times a week. 26 patch 5 Active estradioL (ESTRACE) 0.01 % (0.1 mg/gram) vaginal cream Place 0.5 g vaginally daily. 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 Pros and cons reviewed. Start low dose 0.025 mg and F/u in 2 months for BP check Will also check BP at home daily, stop patch if BP is rising Neck pain 07/06/2020 Assessment & Plan (07/07/2020 [...] Encounters Date Type Department Care Team Description 06/10/2025 Telephone [facility] [address] [place] [address] [place] [address] Ky escoto, Piper Meza LPN RX Claification 05/21/2025 9:00 AM EDT Office Visit [facility] [address] [place] [address] [place] [address] Lilia Olivas MD Encounter for gynecological examination without abnormal finding (Primary Dx); Menopause syndrome 04/16/2025 Transcribe Orders [facility] [address] [place] [address] [place] [address] Arminda Umana PA from Last 3 Months Social History Tobacco [...] a working camera? Not on file Comments No Sex and Gender Information Value Date Recorded Sex Assigned at Not on file Legal Sex Female 4:00 PM EDT Gender Identity Not on file Sexual Orientation Not on file Last Filed Vital Signs Vital Sign Reading Time Taken Comments Blood Pressure 128/76 05/21/2025 9:08 AM EDT Pulse 55 02/26/2025 1:41 PM EDT Temperature 36.8 C (98.2 F) 02/26/2025 1:41 PM EDT Respiratory Rate 18 02/26/2025 1:41 PM EDT Oxygen Saturation 100% 02/26/2025 1:41 PM EDT Inhaled Oxygen Concentration - - Weight 104.3 kg (230 lb) 05/21/2025 9:08 AM EDT Height 165.1 cm (5' 5 ) 05/21/2025 9:08 AM EDT Body Mass Index 38.27 05/21/2025 9:08 AM EDT Plan of Treatment Upcoming Encounters Date Type Department Care Team (Late st Contact Info) Description 07/23/2025 9:00 AM EST Office Visit [facility] [address] [place] [address] Lilia Olivas MD [address] [facility], [address] [place] [address] [email or web address] Health Maintenance Due Date Last Done Comments CREATININE LEVEL 1966 LIPID PANEL 1966 POTASSIUM LEVEL 1966 DEPRESSION SCREENING 1978 SMOKING Hx and SMOKELESS TOBACCO SCREENING 1979 HEPATITIS C SCREENING 01/24/1984 HIV ONE-TIME SCREENING (18-65 YEARS) 01/24/1984 SCREENING FOR DIABETES 2001 MAMMOGRAM 2006 COLOGUARD 2011 COLONOSCOPY 2011 COLORECTAL CANCER SCREENING 2011 FIT TEST 2011 FOBT 2011 SIGMOIDOSCOPY 2011 VIRTUAL COLONOSCOPY 2011 PNEUMOCOCCAL VACCINES (50+ years) (1 of 1 - PCV) 01/24/2016 ZOSTER VACCINES (1 of 2) 01/24/2016 COVID-19 VACCINE (4 - season) 2025 07/23/2021, 10/22/2020, 10/01/2020 Adult Td,Tdap Booster 10/25/2025 10/25/2015 RSV VACCINE (1 - 1-dose 75+ series) 2041 INFLUENZA VACCINE Completed 05/17/2025, , 06/17/2023, Additional history exists HEPATITIS A VACCINES Aged Out No long [...] this topic Medical Devices Not on file Additional Health Concerns Infection Onset Date Last Indicated MDR-GN 02/20/2025 02/20/2025 Insurance H[facility] HMO [facility] HMO [facility] HMO [facility] [place] [address] [place] [address] [facility] [place] [address] HMO [facility]MO [facility] [place] [place] Address: [address] [address] Care Teams Secretarial Teacher Relationship Specialty Start Date End Date Radha Hyde PA-C [address] [place] [address] [email or web address] PCP - General Physician Machine Rug Cleaner 02/26/25 Additional Source Comments The information contained in this document represents components of the legal health record. It is not the complete legal health record.[facility]
--- OUTSIDE RECORDS SUMMARY | 2025-06-23 08:43 | XMS_ITS | Clinical Summary ---
Author Organization [facility] Address [address] [place] [address] Care Team Providers Care Management Department Chair Name Role Phone Dung Briceño MD Primary Care Provider [phone] Allergies Active Allergy Reactions Criticality Noted Date [...] WHI. I discussed risks including cardiovascular disease- RI, DVT, stroke. I discussed small increased risk [...] new medication and thus does not have continuous churn buttermaker safety data. However, the literature I have [...] Overview (06/09/2024): Incidental finding at colonoscopy 01/20/2017. Surgical History Surgery Date Site/Laterality Comments OTHER SURGICAL HISTORY PROCEDURE: HISTORICAL PELVISCOPY VAGINAL DELIVERY PROCEDURE: OR VAGINAL DELIVERY ONLY; COMMENT: x3 OTHER SURGICAL HISTORY 2001 PROCEDURE: OR TOTAL ABDOMINAL HYSTERECT W/WO RMVL TUBE OVARY; [...] care for your loved ones. For example, childcare attendant or elderly care for an older [...] F Vag-S pont Livin g Jennie Delivery Location:[facility] Comments:uncompl 989 Term 40w 0d 2778 g (98 oz) F Vag-S pont Livin g Michaela Delivery Location:[facility] Comments:uncompl 991 Term 40w 0d 4252 g (150 oz) M Vag-S pont Livin g [place] Delivery Location:[facility] Comments:uncompl Last Filed Vital Signs Vital Sign [...] 12/13/2024 8:48 AM EDT Plan of Treatment Upcoming Encounters Date Type Department Care Team (Late st Contact Info) Description 07/14/2025 10:45 AM EST Office Visit [facility] [place] [address] [place] [address] Adela Ovalles MD [address] [place] [phone] Health Maintenance Due Date Last Done Comments [...] Most Recently Relevant to Health Maintenance [place] [address] [place] [address] Care Teams Management Department Chair Relationship Specialty Start Date End Date Dung Briceño MD [address] [place] [address] PCP - General 03/05/04
== END 2025-06-23 08:27 | disposition home or self-care (01) ==
LOC: HO.US 08:26
PROVIDERS: PCP Internal Medicine; Visit Provider Physician Assistant Medical
DX: R10.9 Unspecified abdominal pain (principal)
CPT/HCPCS: 76700

== ENCOUNTER → 2025-06-23 08:28 | Outpatient (BNV) | payer OTHER, SELFPAY | PROVIDERS: PCP Internal Medicine; Visit Provider Radiology Diagnostic Radiology | DX: R10.9 Unspecified abdominal pain (principal) | CPT/HCPCS: 76700 ==

== ENCOUNTER 2025-08-04 12:32 | Outpatient (REF) | payer OTHER, SELFPAY ==
[2025-08-04 13:50] LABS: Alanine Aminotransferase 23 U/L (0-31); Albumin Level 4.7 g/dL (3.5-5.0); Alkaline Phosphatase 100 U/L (39-117); Anion Gap 10 (12-20); Aspartate Amino Transferase 23 U/L (5-31); Blood Urea Nitrogen 24 mg/dL (9-16); Calcium 9.3 mg/dL (8.4-10.2); Carbon Dioxide 29 mmol/L (22-29); Chloride 105 mmol/L (96-108); Estimated Glomerular Filt Rate > 60; Potassium 3.9 mmol/L (3.3-5.1); Sodium 140 mmol/L (135-145); Total Protein 7.3 g/dL (6.5-8.0)
== END 2025-08-04 12:33 | disposition home or self-care (01) ==
LOC: HO.LAB 12:32
PROVIDERS: PCP Internal Medicine; Visit Provider Physician Assistant Medical
DX: Z00.00 Encounter for general adult medical examination without abnormal findings (principal); Z13.29 Encounter for screening for other suspected endocrine disorder; Z13.21 Encounter for screening for nutritional disorder
CPT/HCPCS: 36415; 80053; 82306; 82550; 84443

== ENCOUNTER 2025-08-09 10:31 | Outpatient (REF) | payer OTHER, SELFPAY ==
--- OUTSIDE RECORDS SUMMARY | 2024-06-20 08:48 | XMS_ITS | Encounter Summary ---
Author Organization [facility] [place] [address] Care Team Providers Care Sec Accountant Name Role Phone Dung Briceño MD Primary Care Provider [phone] Encounter Details Date Type Department Care Team (Latest Contact Info) Description 06/20/2024 9:48 AM EDT Hospital Encounter TH [facility]OR[facility] ONLY Nam Chua MD [address] [place] [address] [address] [place] [address] Unspecified cystostomy status (CMS/HCC V24, CMS/HCC V28) [...] care for your loved ones. For example, child welfare social worker or elderly care for an older adult? [...] 06/21/2024 11:50 AM EDT Unspecified cystostomy status ([facility] V24, [facility] V28) documented in this encounter Results * CR CYSTOGRAM VOIDING (06/21/2024 11:50 AM EDT) Anatomical Region Laterality Modality Radiographic Juliann ging 06/20/2024 10:0 6 AM EDT Narrative 06/21/2024 11:50 AM EDT [facility] Diagnostic Imaging Department [address] [place] [address] Patient: STEFANIE GOINS /Age/Sex: 1965 - 59 - F Unit#: [id number] Location/Status: SPDIGEN/REG CLI Mnemonic/Ordering Site: CYSTOVOID/SPDI Ordering [...] Procedure Note Arin Banda MD - 06/29/2024 [facility] Diagnostic Imaging Department [address] [place] [address] Patient: STEFANIE GOINS /Age/Sex: 1965 - 59 - F Unit#: [id number] Location/Status: SPDIGEN/REG CLI Mnemonic/Ordering Site: CYSTOVOID/SPDI Ordering [...] encounter Visit Diagnoses Diagnosis Unspecified cystostomy status ([facility] V24, [facility] V28) Unspecified cystostomy status documented in this encounter Care Teams Sec Accountant Relationship Specialty Start Date End Date Dung Briceño MD [address] [place], [place] [address] PCP - General 03/05/04 07/13/25 documented as of this encounter
--- OUTSIDE RECORDS SUMMARY | 2025-08-04 06:20 | XMS_ITS ---
Author Organization [facility] Address [address] [place] [phone] Care Team Providers Care Joss House Keeper Name Role Phone LAURA TERRY Primary Care Provider Tu Miller Jr Allergies Allergen (clinical drug ingredient) Drug/Non Drug Allergy documented on EMR Reaction Allergy Type Onset Date Status acetaminophen / oxycodone oxyCODONE-Acetaminoph en Unknown Drug Allergy Active Latex Latex Unknown Allergy Active REASON FOR VISIT Patient presents today for diarrhea Medications Medication SIG (Take, Route, Frequency, Duration) Notes Start Date End Date Status Atorvastatin Calcium 10 MG Tablet 1 tablet Orally Once a day Active Omeprazole 20 MG Capsule Delayed Release 1 capsule 1/2 to 1 hour before morning meal Orally Once a day Active Ibuprofen 800 MG Tablet 1 tablet with fo od or milk as needed Orally every 8 hrs Active Metoprolol Succinate ER 100 MG Tablet Extended Release 24 Hour 1 tablet Orally twice a day Active Losartan Potassium 50 MG Tablet 1 tablet Orally Once a day Active Multivitamin - Tablet 1 tablet Orally On ce a day Active Magnesium 200 MG Tablet 2 tablets with a meal Orally twice a day Active Fish Oil 435 MG Capsule 1 capsule Orally twice a day Active CoQ10 200 MG Capsule as directed Orally Active Social History Tobacco Use: Social History Observation Description Date Details (start date - stop date) Never Smoker NA - NA Social History Drug/Alcohol: Social Info Question Answer Notes AUDIT-C (Standard) Did you have a drink containing alcohol in the past year? Yes How often did you have a drink containing alcohol in the past year? 2 to 4 times a month (2 points) How many drinks did you have on a typical day when you were drinking in the past year? 1 or 2 drinks (0 point) How often did you have six or more drinks on one occasion in the past year? 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 Problems Problem Type SNOMED Code ICD Code Onset Dates Problem Status W/U Status Risk Notes Problem Gastroesophageal reflux disease (955797943) GERD (gastroesoph ageal reflux disease) (K21.9) Active confirmed Problem Diarrhea (97679580) Diarrhea (R19.7) Active confirmed Vital Signs Temperature 97.1 degrees Fahrenheit 08/04/20 25 Blood pressure systolic 01 mm Hg 08/04/20 25 Blood pressure diastolic 001 mm Hg 025 Heart Rate 64 /min 08/04/2025 Height 66 in 08/04/2025 Weight 226.0 lbs 08/04/2025 BMI 36.47 kg/m2 08/04/2025 Encounters Encounter Location Date Provider Diagnosis [facility] [address] [place] [address] 08/04/2025 Tu Rogers Jr GERD (gastroesophageal reflux disease) K21.9 and Diarrhea R19.7 Assessments Encounter Date Diagnosis (ICD Code) Assessment Notes Treatment Notes Treatment Clinical Notes Section Notes 08/04/2025 GERD (gastroesopha geal reflux disease) (ICD-10 - K21.9) We discussed her symptoms today. We discussed gastroesophageal reflux disease today. We discussed diet, lifestyle modifications, and weight management regarding the treatment of reflux. We recommended she increase her omeprazole dose to 40 mg daily. She will have further evaluation of her upper and lower GI symptoms with endoscopy and colonoscopy. We discussed risks and benefits of both procedures today. She understands these and agrees to proceed. She is advised to stop ibuprofen and fish oil 1 week before the procedure 08/04/2025 Diarrhea (ICD-10 - R19.7) We discussed her symptoms today. We discussed gastroesophageal reflux disease today. We discussed diet, lifestyle modifications, and weight management regarding the treatment of reflux. We recommended she increase her omeprazole dose to 40 mg daily. She will have further evaluation of her upper and lower GI symptoms with endoscopy and colonoscopy. We discussed risks and benefits of both procedures today. She understands these and agrees to proceed. She is advised to stop ibuprofen and fish oil 1 week before the procedure Plan Of Treatment Future Test Test Name Order Date UPPER GI ENDOSCOPY 08/04/2025 COLONOSCOPY 08/04/2025 Next Appt Details Provider Name:Tu burgos , 08/12/2025 11:00:00 AM, [address] [place] [address], [id number], History and Physical Notes * HPI (History of Present Illness) Category Sub-Category Detail Notes Category Not es New symptom(s) Stefanie is a pleasant 60-year-old woman seen today in consultation. She has a history of diarrhea and gastroesophageal reflux disease. Reflux symptoms have been worse recently despite omeprazole 20 mg daily. She has no dysphagia, hematemesis, or melena. There have been no dietary changes or new medications. She does complain of chronic diarrheal symptoms which occur intermittently. She has recently had an ultrasound which showed a slightly enlarged spleen by her report. GI symptoms are exacerbated by rich and fried foods. Previous colonoscopy in 2017 was normal. This is reviewed. Examination Category Sub-Category Detail Notes Category Not es General Examination GENERAL APPEARANCE: in no acute di stress HEAD: normocephalic EYES: sclera non-icteric NECK/THYROID: no lymphadenopathy HEART: S1, S2 normal, no mu rmurs CHEST: normal shape and exp ansion LUNGS: clear to auscultatio n bilaterally ABDOMEN: soft, nontender, non distended, bowel sounds present, no organomegaly SKIN: anicteric EXTREMITIES: no clubbing, cyanosi s, or edema PSYCH: cognitive function i ntact ORAL CAVITY: mucosa moist Progress Notes * NEFTALY ALCANTAROB:1965 (60 yo F)Acc No.[id number]:08/04/2025 Progress Notes Patient: STEFANIE NICOLAS Provider: Paz Rogers MD :1965 A ge:60 Y S ex:Female Date:08/04/2025 Address:[address] [place] [address] Pcp:LAURA TERRY Subjective: * Chief Complaints: * 1 . Patient presents today for diarrhea. * HPI: N ew symptom(s): Stefanie is a pleasant 60-year-old woman seen today in consultation. She has a history of diarrhea and gastroesophageal reflux disease. Reflux symptoms have been worse recently despite omeprazole 20 mg daily. She has no dysphagia, hematemesis, or melena. There have been no dietary changes or new medications. She does complain of chronic diarrheal symptoms which occur intermittently. She has recently had an ultrasound which showed a slightly enlarged spleen by her report. GI symptoms are exacerbated by rich and fried foods. Previous colonoscopy in 2017 was normal. This is reviewed. * ROS: G eneral/Constitutional: Change in appetite d enies. F atigue d enies. ? E NT: Patient denies d ifficulty swallowing. R espiratory: Patient denies s hortness of breath. C ardiovascular: Patient denies c hest pain. G astrointestinal: Comments S [facility] for details. G enitourinary: Difficulty urinating d enies. I ncontinence d enies. M usculoskeletal: Patient denies m uscle aches. S kin: Patient denies p ruritis. N eurologic: Patient denies l ow back pain. P sychiatric: Patient denies m ental or physical abuse. * Medical History: * Surgical History: * Hospitalization/Major Diagno stic Procedure: * Family History: F ather: , Father from a brain aneurysm, diagnosed with HTN (hypertension), Heart disease. M other: alive, diagnosed with HTN (hypertension), Heart disease. S iblings: diagnosed with HTN (hypertension), Heart disease. F amily History Verified.. Patient denies family history of colon cancer and colon polyps. * Social History: T obacco Use: T obacco Control (Standard) T obacco use: N onsmoker. M iscellaneous: M arital status: . 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 D rug/Alcohol: A GABE-C (Standard) D id you have a drink containing alcohol in the past year? Y es,?How often did you have a drink containing alcohol in the past year? 2 to 4 times a month (2 points), H ow many drinks did you have on a typical day when you were drinking in the past year? 1 or 2 drinks (0 point), H ow often did you have six or more drinks on one occasion in the past year? N ever (0 point), P oints 2 , I nterpretation N egative. Social History Verified. * Medications: T aking Magnesium 200 MG Tablet 2 tablets with a meal Orally twice a day , Taking Fish Oil 435 MG Capsule 1 capsule Orally twice a day , Taking CoQ10 200 MG Capsule as directed Orally , Taking Multivitamin - Tablet 1 tablet Orally Once a day , Taking Atorvastatin Calcium 10 MG Tablet 1 tablet Orally Once a day , Taking Omeprazole 20 MG Capsule Delayed Release 1 capsule 1/2 to 1 hour before morning meal Orally Once a day , Taking Ibuprofen 800 MG Tablet 1 tablet with food or milk as needed Orally every 8 hrs , Taking Metoprolol Succinate ER 100 MG Tablet Extended Release 24 Hour 1 tablet Orally twice a day , Taking Losartan Potassium 50 MG Tablet 1 tablet Orally Once a day , Medication List reviewed and reconciled with the patient * Allergies: o xyCODONE-Acetaminophen, Latex. Allergies Verified. Objective: * Vitals: W t:226.0lbs, Ht:66in, BMI:36.47Index, BP:01/001mm Hg, HR:64/min, Temp:97.1F, Ht- cm: 167.64 cm, Wt-k.51 kg. * Examination: G eneral Examination: GENERAL APPEARANCE: i n no acute distress. HEAD: n ormocephalic. EYES: s clera non-icteric. ORAL CAVITY: m ucosa moist. NECK/THYROID: n o lymphadenopathy. SKIN: a nicteric. HEART: S 1, S2 normal, no murmurs. LUNGS: c lear to auscultation bilaterally. CHEST: n ormal shape and expansion. ABDOMEN: s oft, nontender, nondistended, bowel sounds present, no organomegaly . EXTREMITIES: n o clubbing, cyanosis, or edema. PSYCH: c ognitive function intact. Assessment: * Assessment: 1. G ERD (gastroesophageal reflux disease) - K21.9 (Primary) 2 . D iarrhea - R19.7 We discussed her symptoms to day. We discussed gastroesophageal reflux disease today. We discussed diet, lifestyle modifications, and weight management regarding the treatment of reflux. We recommended she increase her omeprazole dose to 40 mg daily. She will have further evaluation of her upper and lower GI symptoms with endoscopy and colonoscopy. We discussed risks and benefits of both procedures today. She understands these and agrees to proceed. She is advised to stop ibuprofen and fish oil 1 week before the procedure Plan: * Treatment: ?Procedure: COLONOSCOPY (Ordered for 08/04/2025)* sched for 08/12/25 at 12:20 pmmac,miralax 2.?Diarrhea?Procedure: UPPER GI ENDOSCOPY (Ordered for 08/04/2025)* sched for 08/12/25 at 12:20 pmmac ?Procedure: COLONOSCOPY (Ordered for 08/04/2025)* sched for 08/12/25 at 12:20 pmmac,miralax * Procedure Codes: 3 017F COLORECTAL CA SCREEN DOC REV, 1036F TOBACCO NON-USER, G9744 PATIENT NOT ELIG D/T ACTIVE DX HTN * Preventive Medicine: Counseling: C are goal follow-up plan: A danny Normal BMI Follow-up G iving encouragement to exercise. Urinary Incontinence: U rinary Incontinence A ssessment: P resent, P martin of care documented: Y es, T ype of plan of care: S urgical treatment, Lifestyle interventions. Screenings: F all Risk Screening F all Risk Assessment: N o falls in the past year, S creening: N o falls in the past year, P martin of Care: D ocumented, T ype of fall plan of care: B alance, strength and gait training or instruction provided. Billing Information: * Procedure Codes: 3017F COLORECTAL CA SCREEN DOC REV. 1036F TOBACCO NON-USER. G9744 PATIENT NOT ELIG D/T ACTIVE DX HTN. * Sign off status: Completed true * Provider: Paz Rogers MD Date: 10/05/2024 Generated for Sharon smith/Carlie/Maryitting on: 10/10/2024 10:34 AM EST
--- OUTSIDE RECORDS SUMMARY | 2025-08-09 10:34 | XMS_ITS | Patient Health Record ---
[facility] Address [address] [place] [address] Care Team Providers Care Switchboard Operator Assistant Name Role Phone Dung Briceño MD Primary Care Provider Unavailab Julio Wilcox Unavailable [phone] Allergies Allergen (clinical drug ingredient) Drug/Non Drug Allergy documented on EMR Reaction Allergy Type Onset Date Status acetaminophen / oxycodone Percocet itchy Drug Allergy Active adhesive tape rash Drug Allergy Act jb Reason For Referral No Information Medications Medication SIG (Take, Route, Frequency, Duration) Notes Start Date End Date Status Jenison 3 Active Probiotic Active Aspir-81 81 MG [...] W/U Status Risk Notes Problem Plantar wart (17364594) Plantar wart (B07.0) Active confirmed Plan Of Treatment Pending Test Test Name Order Date 56367-Zdam Destruction, 09-1006/10/2011 57123-Xuax Destruction, 09-1006/24/2011 22826-Gjbq Destruction, 09-1007/08/2011 11783-Xaco Destruction, 09-1007/29/2011 87679-Yhcm Destruction, 09-1009/02/2011 75617-Agix Destruction, 09-1009/23/2011 88705-Legp Destruction, 09-1002/01/2019 33156-Tivcpoeu Plate 07/29/2011 93959-Triuajbj Plate 09/02/2011 20830-Ixbcdzha Plate Each Additional 09/2010 51240,F7325-GFM TENDON SHEATH/LIGAMENT 0 04/04/2014 Insurance Providers Payer Name Payer Address Payer Phone Subscriber Number Group Number Insured Name Patient Relationship to Insured Coverage Start Date Coverage End Date [facility] [address] [place] [address] [id number] Stefanie Goins Self - patient is the [...]
--- OUTSIDE RECORDS SUMMARY | 2025-08-09 10:34 | XMS_ITS | Patient Health Record ---
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 Problems Problem Type SNOMED Code ICD Code Onset Dates Problem Status W/U Status Risk Notes Problem Diarrhea (96202797) Diarrhea (R19.7) Active confirmed Problem Gastroesophageal reflux disease (238354559) GERD (gastroesoph ageal reflux disease) (K21.9) Active confirmed Vital Signs Heart Rate 64 /min 08/04/2025 Temperature 97.1 degrees Fahrenheit 08/04/2025 Blood pressure diastolic 001 mm Hg 08/04/2025 Height 66 in 08/04/2025 Blood pressure systolic 01 mm Hg 08/04/2025 Weight 226.0 lbs 08/04/2025 BMI 36.47 kg/m2 08/04/2025 Encounters Encounter Location Date Provider [facility] [address] [facility] [address] [place] [address] 08/04/2025 Tu Rogers Jr GERD (gastroesophageal reflux [...] Details Provider Name:Tu Rosario burgos Jr, 08/12/2025 11:00:00 AM, [address] [place] [address] , [place], [place], [phone], Insurance Providers Payer Name Payer Address Payer Phone Subscriber Number Group Number Insured Name Patient Relationship to Insured Coverage Start Date Coverage End Date [facility] [address] [place] [phone] [id number] RANDELL ALCANTAR Self - patient is the insured Medical (General) History Medical History History ICD Code high blood pressure Urinary incontinence Hyperlipidemia Myocardial bridging Breast lump Prediabetes Surgical History Surgery Date(Month/Year) hysterectomy carpal tunnel surgery left and right adrrell e left knee acl/mcl surgery 2017 torn root nerve repair right knee back surgery right foot surgery for plantars fascitis
--- OUTSIDE RECORDS SUMMARY | 2025-08-09 10:34 | XMS_ITS | Clinical Summary ---
Author Organization [facility] Address [address] [facility] [address] [place] [address] Phone Care Team Providers Care Promotions Producer Name Role Phone Radha Hyde PA-C Primary [...] for pain (specific location in comments). Active fpcrtxkl-qkc-tw rrous gluconate (CENTRUM WITH IRON) 9 mg iron/15 mL Liqd Take 15 mL by mouth daily. Active omega 9-lqg-myv-fish oil 1,000 mg (120 mg-180 mg) Cap [...] 3 billion cell Cap Probiotic Active omega 4-odi-mya-fish oil 1,000 mg (250 mg-750 mg)/5 mL Liqd Clifford 3 Active calcium carbonate-vitam in D3 1,000 [...] til 3 years ago- reports BP in Tabulating Supervisor office 150/90, so lead driver stopped the patch Hopt flashes not responding [...] 07/23/2025 9:00 AM EST Office Visit [facility] [address] [place] [address] Lilia Olivas MD Menopause syndrome (Primary Dx) 06/10/2025 Telephone [facility] [address] [place] [address] [place] [address] Piper Iniguez, MANAGER VALUATION RX Claification 05/21/2025 9:00 AM EDT Office Visit [facility] [address] [place] [address] [place] [address] Lilia Olivas MD Encounter for gynecological examination [...] Date Last Indicated MDR-GN 02/20/2025 02/20/2025 Insurance [facility] [place] [address] [place] [address] [place] [address] [place] [place] [address] [facility] HMO [facility] HMO Care Teams Promotions Producer Relationship Specialty Start Date End Date Radha Hyde PA-C [address] [place] [address], [address] [place] [phone] [email or web address] PCP - General Physician Plant Controller 02/26/25 Additional Source Comments The information contained in this document represents components of the legal health record. It is not the complete legal health record.[facility]
--- OUTSIDE RECORDS SUMMARY | 2025-08-09 10:35 | XMS_ITS | Clinical Summary ---
Author Organization [facility] Address [address] [place] [address] Care Team Providers Care Cytotechnologist Name Role Phone Jak Connors MD Primary Care Provider [phone] Allergies Active Allergy Reactions Criticality Noted Date Comments Latex 03/18/2025 Oxycodone 02/13/2019 itching Medications ASCORBIC ACID, VITAMIN C, ORAL Take by mouth. Active atorvastatin (LIPITOR) 10 mg tablet Take 10 mg by mouth daily. Active calcium carbonate/sandra min D3 (CALCIUM CARBONATE-SANDRA MIN D PO) [...] new medication and thus does not have termite control servicer safety data. However, the literature I have [...] AM EST Office Visit Orthopedic Surgery - [address] [place] [address] Adela Ovalles MD Arthritis of [...] for your loved ones. For example, childcare center director or elderly care for an older [...] F Vag-S pont Livin g Jennie Delivery Location:[facility] Comments:uncompl 989 Term 40w 0d 2778 g (98 oz) F Vag-S pont Livin g Michaela Delivery Location:[facility] Comments:uncompl 991 Term 40w 0d 4252 g (150 oz) M Vag-S pont Livin g [place] Delivery Location:[facility] Comments:uncompl Last Filed Vital Signs Vital [...] Most Recently Relevant to Health Maintenance [place] [address] [place] [address] [place] [address] Care Teams Cytotechnologist Relationship Specialty Start Date End Date Jak Connors MD [facility] [address] [place] [address] [address] [place] [address] PCP - General Internal Medicine 07/14/25
[2025-08-09 12:21] LABS: Folate 9.2 ng/mL (> or = 4.0); Vitamin B12 766 pg/mL (200-900)
== END 2025-08-09 10:32 | disposition home or self-care (01) ==
LOC: HO.LAB 10:31
PROVIDERS: PCP Physician Assistant Medical; Visit Provider Physician Assistant Medical
DX: Z00.00 Encounter for general adult medical examination without abnormal findings (principal)
CPT/HCPCS: 36415; 82607; 82746

== ENCOUNTER 2025-08-12 09:26 | Day surgery (SDC) | payer OTHER, SELFPAY ==
--- OUTSIDE RECORDS SUMMARY | 2024-06-20 08:48 | XMS_ITS | Encounter Summary ---
Author Organization [facility] [place] [address] Care Team Providers Care Employee Communications Manager Name Role Phone Dugn Briceño MD Primary Care Provider [phone] Encounter Details Date Type Department Care Team (Latest Contact Info) Description 06/20/2024 9:48 AM EDT Hospital Encounter TH HISTORIC ENCOUNTERS [facility] ONLY Nam Chua MD [address] [place] [address] [address] [place] [address] Unspecified cystostomy status (CMS/HCC V24, CMS/HCC V28) [...] for your loved ones. For example, child custody evaluator or elderly care for an older adult? [...] 06/21/2024 11:50 AM EDT Unspecified cystostomy status ([facility] V24, [facility] V28) documented in this encounter Results * CR CYSTOGRAM VOIDING (06/21/2024 11:50 AM EDT) Anatomical Region Laterality Modality Radiographic Juliann ging 06/20/2024 10:0 6 AM EDT Narrative 06/21/2024 11:50 AM EDT [facility] Diagnostic Imaging Department [address] [place] [address] Patient: STEFANIE GOINS /Age/Sex: 1965 - 59 - F Unit#: [id number] Location/Status: SPDIGEN/REG CLI Mnemonic/Ordering Site: CYSTOVOID/SPDI Ordering [...] Procedure Note Arin Banda MD - 06/29/2024 [facility] Diagnostic Imaging Department [address] [place] [address] Patient: STEFANIE GOINS /Age/Sex: 1965 - 59 - F Unit#: [id number] Location/Status: SPDIGEN/REG CLI Mnemonic/Ordering Site: CYSTOVOID/SPDI Ordering [...] encounter Visit Diagnoses Diagnosis Unspecified cystostomy status ([facility] V24, [facility] V28) Unspecified cystostomy status documented in this encounter Care Teams Employee Communications Manager Relationship Specialty Start Date End Date Dung Briceño MD [address] [place], [place] [address] PCP - General 03/05/04 07/13/25 documented as of this encounter
--- OUTSIDE RECORDS SUMMARY | 2025-08-04 23:30 | XMS_ITS | Patient Health Record ---
[facility] Address [address] [place] [address] Care Team Providers Care Safety Leader Name Role Phone Dung Briceño MD Primary Care Provider Unavailab Julio Wilcox Unavailable [phone] Allergies Allergen (clinical drug ingredient) Drug/Non Drug Allergy documented on EMR Reaction Allergy Type Onset Date Status acetaminophen / oxycodone Percocet itchy Drug Allergy Active adhesive tape rash Drug Allergy Act jb Reason For Referral No Information Medications Medication SIG (Take, Route, Frequency, Duration) Notes Start Date End Date Status Eureka 3 Active Probiotic Active Aspir-81 81 MG [...] W/U Status Risk Notes Problem Plantar wart (33629419) Plantar wart (B07.0) Active confirmed Plan Of Treatment Pending Test Test Name Order Date 88133-Ungo Destruction, 09-1006/10/2011 16334-Dmgq Destruction, 09-1006/24/2011 67499-Mpht Destruction, 09-1007/08/2011 23317-Wknf Destruction, 09-1007/29/2011 68279-Zfsl Destruction, 09-1009/02/2011 58139-Bacj Destruction, 09-1009/23/2011 03091-Qkkw Destruction, 09-1002/01/2019 29878-Qnisjnej Plate 07/29/2011 59157-Itsabxlp Plate 09/02/2011 05108-Wguuhfap Plate Each Additional 09/2010 49060,[id number] TENDON SHEATH/LIGAMENT 0 04/04/2014 Insurance Providers Payer Name Payer Address Payer Phone Subscriber Number Group Number Insured Name Patient Relationship to Insured Coverage Start Date Coverage End Date [facility] [address] [place] [address] [id number] Stefanie Goins Self - patient is the [...]
--- OUTSIDE RECORDS SUMMARY | 2025-08-04 23:31 | XMS_ITS | Clinical Summary ---
Author Organization [facility] Address [address] [place] [address] Phone Care Team Providers Care Environmental Services Specialist Name Role Phone Radha Hyde PA-C Primary Care Provid er Allergies Active Allergy Reactions Criticality Noted Date Comments Adhesive Rash Low 02/26/2025 Oxycodone-Acetaminophen 05/26/2019 Medications metoprolol succinate (TOPROL-XL) 100 MG 24 hr tablet Take 100 mg by mouth 2 (two) times a day. Active ibuprofen (ADVIL,MOTRIN) 800 MG tablet Take 800 mg by mouth every 6 (six) hours as needed for pain (specific location in comments). Active pjayscab-hve-zp rrous gluconate (CENTRUM WITH IRON) 9 mg iron/15 mL Liqd Take 15 mL by mouth daily. Active omega 4-bnj-wen-fish oil 1,000 mg (120 mg-180 mg) Cap Take 1 capsule by mouth daily. Active zinc sulfate 220 mg Tab Take 220 mg by mouth daily. Active losartan (COZAAR) 50 MG tablet 50 mg. Active magnesium oxide 500 mg magnesium Tab Take by mouth. Active fexofenadine (RICCARDO ALLERGY) 60 MG tablet Riccardo [...] (PROBIOTIC) 3 billion cell Cap Probiotic Active omega 9-rzx-uft-fish oil 1,000 mg (250 mg-750 mg)/5 mL Liqd [place] 3 Active calcium carbonate-vitam in D3 1,000 mg-20 mcg (800 unit) Tab Calcium Active omeprazole (PRILOSEC) 20 MG capsule Take 20 mg by mouth daily. Active atorvastatin (LIPITOR) 20 MG tablet Take 1 tablet by mouth every morning. 03/18/20 Active estradioL (ESTRACE) 0.01 % (0.1 mg/gram) vaginal cream Place 0.5 g vaginally daily. 42 g 1 05/21/20 25 Active estradioL (VIVELLE-DOT) 0.05 mg/[address] 1 patch onto the skin 2 (two) times a week. 26 patch 3 07/24/20 Active metoclopramide HCl 10 mg ODT Take 10 mg by mouth 4 (four) times a day. Discontinued omeprazole (PRILOSEC) 20 MG capsule Take 20 mg by mouth daily. Discontinued atorvastatin (LIPITOR) 10 MG tablet Take 10 mg by mouth daily. Discontinued PARoxetine (PAXIL) 10 MG tablet Take 10 mg by mouth. 12/14/19 025 Discontinued tiZANidine (ZANAFLEX) 2 MG tablet Take 2 mg by mouth 3 (three) times a day. 02/14/20 025 Discontinued phenazopyridine (PYRIDIUM) 100 MG tablet Take 2 tablets (200 mg total) by mouth 3 (three) times a day as needed for pain (specific location in comments) (URINARY DISCOMFORT). 12 tablet 02/21/20 025 Discontinued omeprazole (PRILOSEC OTC) 20 MG tablet 2 (two) times a day. Discontinued omeprazole 20 mg TbLD 1 capsule. Discontinued metoprolol succinate (TOPROL-XL) 100 MG 24 hr tablet 1 capsule. 025 Discontinued estradioL (VIVELLE-DOT) 0.025 mg/[address] 1 patch onto the skin 2 (two) times a week. 26 patch 05/22/20 25 025 Discontinued Active Problems Problem Noted Date Diagnosed Date Menopause syndrome 05/21/2025 Overview (05/21/2025): Surgical menopause age 36, on ERT patch til 3 years ago- reports BP in [employer] office 150/90, so legal aid stopped the patch Hopt flashes not responding to paroxetine alternative Assessment & Plan (07/23/2025 9:18 AM EST): She has blood pressures at home have been within normal limits Dose increased to the point 05 mg patch as she is still having night sweats about 2 days after replacing each patch Assessment & Plan (05/21/2025 11:01 AM EDT): [...] Encounters Date Type Department Care Team Description 07/23/2025 9:00 AM EST Office Visit [facility] [address] [place] [address] Lilia Olivas MD Menopause syndrome (Primary Dx) 06/10/2025 Telephone [facility] [address] [place] [address] [place] [address] Piper Iniguez, MEDICAL INVESTIGATOR RX Claification 05/21/2025 9:00 AM EDT Office Visit [facility] [address] [place] [address] [place] [address] Lilia Olivas MD Encounter for gynecological examination without abnormal finding (Primary Dx); Menopause syndrome from Last 3 Months Social History Tobacco [...] Sign Reading Time Taken Comments Blood Pressure 124/72 07/23/2025 9:00 AM EST Pulse 55 02/26/2025 1:41 PM EDT Temperature [...] 05/21/2025 9:08 AM EDT Plan of Treatment Health Maintenance [...] Date Last Indicated MDR-GN 02/20/2025 02/20/2025 Insurance [facility] [place] [address] [place] [address] [place] [place] [address] [place] [address] [facility] [facility] HMO [facility] HMO Care Teams Environmental Services Specialist Relationship Specialty Start Date End Date Radha Hyde PA-C [address] [place] [address], [address] [place] [id number] [email or web address] PCP - General Physician Payment Processor 02/26/25 Additional Source Comments The information contained in this document represents components of the legal health record. It is not the complete legal health record.[facility]
--- OUTSIDE RECORDS SUMMARY | 2025-08-04 23:32 | XMS_ITS | Clinical Summary ---
Author Organization [facility] Address [address] [place] [address] Care Team Providers Care Truss Puller Helper Name Role Phone Jak Connors MD Primary Care Provider [phone] Allergies Active Allergy Reactions Criticality Noted Date Comments Latex 03/18/2025 Oxycodone 02/13/2019 itching Medications ASCORBIC ACID, VITAMIN C, ORAL Take by mouth. Active atorvastatin (LIPITOR) 10 mg tablet Take 10 mg by mouth daily. Active calcium carbonate/sanrda min D3 (CALCIUM CARBONATE-SANDRA MIN D PO) Take by mouth. Active docusate sodium (COLACE) 100 mg capsule Take 1 capsule (100 mg total) by mouth 2 (two) times a day. 06/07/20 24 Active docosahexaenoi c acid/epa (FISH OIL ORAL) by Does not apply route. Active ibuprofen (ADVIL,MOTRIN) 800 mg tablet Take 1 tablet (800 mg total) by mouth every 8 (eight) hours if needed. 06/07/20 24 Active magnesium oxide 500 mg magnesium tablet Take by mouth. Active metoprolol succinate (TOPROL-XL) 100 mg 24 hr tablet Take 100 mg by mouth daily. Active omeprazole (PriLOSEC) [address] capsule 10/22/19 18 Active losartan (COZAAR) 50 mg tablet Take 1 tablet (50 mg total) by mouth 1 (one) time each day. Active estradioL (ESTRACE) 0.01 % (0.1 mg/gram) vaginal cream APPLY 0.5 GRAM VAGINALLY 3 TIMES A WEEK 42.5 g 1 12/14/19 25 Active POLYETHYLENE GLYCOL 3350 ORAL 06/07/20 24 025 Discontinued PARoxetine (PAXIL) 10 mg tablet Take 1 tablet (10 mg total) by mouth 1 (one) time each day in the morning. 90 tablet 1 12/14/19 25 025 Discontinued Hospital, Clinic, or Other Facility Administered Medication Ordered Dose Route Frequency Start Date End Date Status triamcinolone acetonide (KENALOG-40) 40 mg/mL injection 40 mgIndications:Arthriti s of carpometacarpal (CMC) joint of right thumb 40 mg Once PRN Procedure 07/14/2025 07/14/2025 Ended Active Problems Problem Noted Date Diagnosed Date Vasomotor symptoms due to menopause 12/13/2024 Assessment & Plan (12/13/2024 2:05 PM EDT): Counseled the patient re: options for treatment of vasomotor sx. Discussed option for Paxil, Effexor and Clonidine and reviewed their expected SE. I discussed hormone therapy and reviewed the findings of the WHI. I discussed risks including cardiovascular disease- [place], DVT, stroke. I discussed small increased risk [...] new medication and thus does not have neighborhood conservation officer safety data. However, the literature I have [...] & Plan: Rx vaginal estradiol provided today. Arthritis of carpometacarpal (CMC) joint of righ t thumb 02/23/2022 Right carpal tunnel syndrome 02/23/2022 Hypertension [...] Encounters Date Type Department Care Team Description 07/14/2025 10:45 AM EST Office Visit Orthopedic Surgery - [address] [place] [address] Adela Ovalles MD Arthritis of carpometacarpal (CMC) joint of right thumb (Primary Dx) from Last 3 Months Surgical History Surgery [...] COLONOSCOPY; COMMENT: Diverticulosis; otherwise negative screening examination. CARPAL TUNNEL RELEASE Bilateral right in 2021 Medical History Medical History Date Comments Heartburn [...] 0 Q uit: 12/21/1981 Smokeless Tobacco: Never Tobacco [...] do you feel lonely or isolated from ose around you? Never 12/07/2024 Food Risk [...] for your loved ones. For example, children's service worker or elderly care for an older [...] F Vag-S pont Livin g Jennie Delivery Location:[facility] Comments:uncompl 989 Term 40w 0d 2778 g (98 oz) F Vag-S pont Livin g Michaela Delivery Location:[facility] Comments:uncompl 991 Term 40w 0d 4252 g (150 oz) M Vag-S pont Livin g Hasmukh Delivery Location:[facility] Comments:uncompl Last Filed Vital Signs Vital Sign Reading Time Taken Comments Blood Pressure 145/70 12/13/2024 2:03 PM EDT Pulse 60 12/13/2024 8:48 AM EDT Temperature - - Respiratory Rate 12 12/13/2024 8:48 AM EDT Oxygen Saturation - - Inhaled Oxygen Concentration - - Weight 96.2 kg (212 lb) 07/14/2025 10:32 AM EST Height 166.4 cm (5' 5.5 ) 07/14/2025 10:32 AM ES T Body Mass Index 34.74 07/14/2025 10:32 AM EST Plan of Treatment Health Maintenance Due Date Last Done Comments Breast Cancer Screening 1966 Hepatitis B Vaccines (1 of 3 - 19+ 3-dose series) 1985 Cervical Cancer Screening: Pap Smear 1987 Pneumococcal Vaccine: 50+ Years (1 of 1 - PCV) 01/24/2016 Zoster Vaccines (1 of 2) 01/24/2016 Cholesterol Screening (Lipid Panel) 07/30/2022 HIV Screening 07/30/2022 Hepatitis C Screening 07/30/2022 Hypertension/CHF/CAD Annual BMP Blood Test 08/11/2022 COVID-19 Vaccine ( season) 2025 07/23/2021, 10/22/2020, 10/01/2020 DTaP,Tdap,and Td Vaccines (2 - Td or Tdap) 10/25/2025 10/25/2015 Social Influencers of Health Screening 12/07/2025 12/07/2024 Colorectal Cancer Screening: Colonoscopy 01/20/2027 01/20/2017, 01/20/2017 RSV Immunization Adult Patients (1 - 1-dose 75+ series) 2041 Depression Screening Completed 12/07/2024 Influenza Vaccine Completed 05/17/2025, , 06/17/2023, Additional history exists HIB Vaccines Aged Out No longer eligi [...] 20 months Aged Out No longer eligible based on patient's age to complete this topic Varicella Vaccines Aged Out No longer eligible based on patient's age to complete this topic Procedures Procedure Name Priority Date/Time Associated Diagnosis Comments XR FINGERS 2+ VIEWS BILATERAL Routine 07/14/2025 11:16 AM EST Pain in finger of both hands IL ARTHROCENTESIS/ASPI RATION/INJECTION SMALL JOINT/BURSA WO U/S GUIDANCE Routine 07/14/2025 10:45 AM EST Arthritis of carpometacarpal (CMC) joint of right thumb HM COLONOSCOPY Routine 01/20/2017 from Last 3 Months or Most Recently Relevant to Health Maintenance Results * XR Fingers 2+ Views bilat (07/14/2025 11:16 AM EST) Anatomical Region Laterality Modality Upper Extremities, Fingers Bilateral Compu macy Radiography Narrative 07/14/2025 4:03 PM EST AP and lateral of both the right and left thumb rays were obtained on 07/14/2025. There are no obvious fractures, lytic lesions, or unusual calcifications. There is some generalized osteopenia. Patient has basal joint arthritis with narrowing sclerosis and subchondral cyst formation along with para-articular osteophyte formation. This is slightly more pronounced on the right than on the left. Patient also has some asymmetric wear at the DIP joint of the right index finger incidentally. Patient has milder changes at the DIP joint of the left index. Impression: Bilateral basal joint arthritis Adela Ovalles MD IMG XR PROCEDURES Final Resul t * IL ARTHROCENTESIS/ASPIRATION/INJECTION SMALL JOINT/BURSA WO U/S GUIDANCE (07/14/2025 10:45 AM EST) Adela Cook MD - 07/14/2025 10:45 AM EST Adela Ovalles MD 07/14/2025 4:06 PM Small Inj/Asp: R thumb CMC Details: 25 G needle, dorsal approach Medications: 40 mg triamcinolone acetonide 40 mg/mL after reviewing the risks and benefits of injection with the patient the decision was made to proceed. The site was confirmed and then prepped with Betadine and then alcohol. The skin overlying the basal joint of the thumb was then injected with approximately 1 cc of 1% lidocaine with epinephrine. Once this had a chance to take effect I then prepped the area again. I then injected 40 mg of Kenalog into the basal joint. The patient tolerated this well. A bandage was then applied. Post injection care was reviewed with the patient and the patient verbalized understanding. Informed Consent: Site: [facility] Laterality: Right Informed consent discussion completed by Physician/PIPER with patient: Verbal Pre-procedure timeout performed: yes Adela Ovalles MD IN CLINIC/BEDSIDE ORDERABLES Final Result * Colonoscopy (01/20/2017) Colonoscopy NO INTERPRETATION , ABSTRACTED Anatomical Region Laterality Modality Other Historical Provider HEALTH MAINTENANCE Final Result from Last 3 Months or Most Recently Relevant to Health Maintenance [place] [address] [place] [id number] Care Teams Truss Puller Helper Relationship Specialty Start Date End Date Jak Connors MD [facility] [address] [place] [address] [address] [place] [address] PCP - General Internal Medicine 07/14/25
--- OUTSIDE RECORDS SUMMARY | 2025-08-04 23:32 | XMS_ITS | Patient Health Record ---
Author Organization [facility] Address [address] [place] [address] Care Team Providers Care Button Sewer Name Role Phone LAURA TERRY Primary Care Provider Tu Miller Jr Unavailable [phone] Allergies Allergen (clinical drug ingredient) Drug/Non Drug Allergy documented on EMR Reaction Allergy Type Onset Date Status acetaminophen / oxycodone oxyCODONE-Acetaminoph en Unknown Drug Allergy Active Latex Latex Unknown Allergy Active Reason For Referral No Information Medications Medication SIG (Take, Route, Frequency, Duration) Notes Start Date End Date Status Multivitamin - Tablet 1 tablet Orally On ce a day Active Atorvastatin Calcium 10 MG Tablet 1 tablet [...] 1 tablet Orally Once a day Active Magnesium 200 MG Tablet [...] Info Options Details Miscellaneous: Marital status: 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 [address] [facility] [address] [place] [address] 08/04/2025 Tu Rogers Jr GERD (gastroesophageal reflux disease) K21.9 and Diarrhea R19.7 Assessments Encounter Date Diagnosis (ICD Code) Assessment Notes Treatment Notes Treatment Clinical Notes Section Notes 08/04/2025 Diarrhea (ICD-10 - R19.7) We discussed [...] oil 1 week before the procedure 08/04/2025 GERD (gastroesopha geal reflux disease) (ICD-10 [...] COLONOSCOPY 08/04/2025 Next Appt Details Provider Name:Tu Rosario burgos Jr, 08/12/2025 12:20:00 PM, [address] [place] [address] , [place], [place], [id number], Insurance Providers Payer Name Payer Address Payer Phone Subscriber Number Group Number Insured Name Patient Relationship to Insured Coverage Start Date Coverage End Date [facility] [address] [place] [phone] [id number] RANDELL ALCANTAR Self - patient is the insured Medical (General) History Medical History History ICD Code high blood pressure Urinary incontinence Hyperlipidemia Myocardial bridging Breast lump Prediabetes Surgical History Surgery Date(Month/Year) hysterectomy carpal tunnel surgery left and right darrell e left knee acl/mcl surgery 2017 torn root nerve repair right knee back surgery right foot surgery for plantars fascitis
--- NOTE | 2025-08-08 10:33 | HO.ANESPROP2 ---
Documented by User: Naz Belle NP 08/08/25 10:35 HPI - Anesthesia Eval Consult details Narrative: 60yo F for Upper Endoscopy and Colonoscopy Eval with [facility] cardiology 2020 for chest pain, w/u done including cath and no cardiac etiology. [facility] Active Problems Active Problems: All Active Problems Right nephrolithiasis (Acute) Abdominal pain (Acute) Lactose intolerance (Acute) Prediabetes (Acute) Breast lump (Acute) Hyperlipidemia (Acute) Hypertension (Acute) Myocardial bridge (Acute) Establishing care with new doctor, encounter for (Acute) Family history of breast cancer (Acute) Lump of right breast (Acute) History of hysterectomy (Acute) Diarrhea (Acute) H/O arthroscopy of right knee (Acute) Tear of medial meniscus of right knee (Acute) Effusion, right knee (Acute) Osteoarthritis of right knee (Acute) Osteoarthritis of left knee (Acute) Osteoarthritis of patellofemoral joint (Acute) Abnormal stress test (Acute) Precordial chest pain (Acute) Essential hypertension (Acute) Past Medical History Medical History Right nephrolithiasis Abdominal pain History of mammogram (~09/05/24) Lactose intolerance Prediabetes Breast lump Hyperlipidemia Hypertension Myocardial bridge Establishing care with new doctor, encounter for Family history of breast cancer Lump of right breast Diarrhea Arthritis Elevated cholesterol GERD (gastroesophageal reflux disease) Essential hypertension Family History Family History Father Brain cancer Mother Status post placement of cardiac pacemaker Breast cancer PONV (postoperative nausea and vomiting) Family history of problems with anesthesia: No Surgical History Surgical History History of hysterectomy History of bladder surgery (~06/2024) Hx of arthroscopy of left knee Hx of foot surgery History of bilateral carpal tunnel release History of lumpectomy of left breast History of total hysterectomy History of cardiac catheterization (~05/16/18) History of Problems with Anesthesia: No Social History Social History Housing: House Are you a primary certified caregiver to a significant other at home: No Do you presently have visiting nurse or other home services: No Alcohol intake: current Alcohol intake frequency: a few times a month Comment: aware of trip hazard Patient Tobacco Use Status: Former Tobacco user Use of substances other than those prescribed or required for medical reasons: No Advance Directives: No Advance Directives Information Provided: Yes service: No Current occupational status: employed Cognitive needs: No Hearing needs: No Vision needs: Yes (rx glasses) Meds Allergies Allergy/AdvReac Type Severity Reaction Status Date / Time oxycodone (Percocet) Allergy Intermediate Itchiness Verified 08/12/25 10:01 LATEX GLUE Allergy Intermediate redness Uncoded 08/12/25 10:01 and inflammation Home Medications ?Medication ?Instructions ?Recorded ?Confirmed ?Last Taken ?Type ascorbic acid (vitamin C) 1,000 mg 1 g PO DAILY 12/23/20 08/12/25 Unknown History tablet multivitamin 1 tab PO DAILY 12/23/20 08/12/25 Unknown History omega-3 fatty acids 1,000 mg 1,000 mg PO DAILY 12/23/20 08/12/25 08/05/25 History capsule (Fish Oil Concentrate) Probiotic 05/05/23 03/14/25 Unknown History docusate sodium 100 mg capsule 100 mg PO BID 03/14/25 08/12/25 Unknown History metoprolol succinate 100 mg 100 mg PO BID 04/07/25 08/12/25 08/12/25 History tablet,extended release 24 hr Exam Pertinent Lab Results Pertinent Lab Results: Laboratory Tests 02/11/25 08/04/25 12:55 12:40 WBC 5.5 Hgb 12.4 Hct 36.7 L Plt Count 276 Sodium 140 Potassium 3.9 Chloride 105 Carbon Dioxide 29 BUN 24 H Creatinine 0.65 Assessment and Plan Assessment Anesthesia Assessment: Chart Reviewed Final Anesthetic Review Family History of Problems with Anesthesia: No History of Problems with Anesthesia: No Documented by User: Ashley Najera MD 08/12/25 11:02 PMF Past Medical History Medical History Right nephrolithiasis Abdominal pain History of mammogram (~09/05/24) Lactose intolerance Prediabetes Breast lump Hyperlipidemia Hypertension Myocardial bridge Establishing care with new doctor, encounter for Family history of breast cancer Lump of right breast Diarrhea Arthritis Elevated cholesterol GERD (gastroesophageal reflux disease) Essential hypertension Family History Family History Father Brain cancer Mother Status post placement of cardiac pacemaker Breast cancer PONV (postoperative nausea and vomiting) Surgical History Surgical History History of hysterectomy History of bladder surgery (~06/2024) Hx of arthroscopy of left knee Hx of foot surgery History of bilateral carpal tunnel release History of lumpectomy of left breast History of total hysterectomy History of cardiac catheterization (~05/16/18) Social History Social History Housing: House Are you a primary certified caregiver to a significant other at home: No Do you presently have visiting nurse or other home services: No Alcohol intake: current Alcohol intake frequency: a few times a month Comment: aware of trip hazard Patient Tobacco Use Status: Former Tobacco user Use of substances other than those prescribed or required for medical reasons: No Advance Directives: No Advance Directives Information Provided: Yes service: No Current occupational status: employed Cognitive needs: No Hearing needs: No Vision needs: Yes (rx glasses) Meds Allergies Allergy/AdvReac Type Severity Reaction Status Date / Time oxycodone (Percocet) Allergy Intermediate Itchiness Verified 08/12/25 10:01 LATEX GLUE Allergy Intermediate redness Uncoded 08/12/25 10:01 and inflammation Home Medications ?Medication ?Instructions ?Recorded ?Confirmed ?Last Taken ?Type ascorbic acid (vitamin C) 1,000 mg 1 g PO DAILY 12/23/20 08/12/25 Unknown History tablet multivitamin 1 tab PO DAILY 12/23/20 08/12/25 Unknown History omega-3 fatty acids 1,000 mg 1,000 mg PO DAILY 12/23/20 08/12/25 08/05/25 History capsule (Fish Oil Concentrate) Probiotic 05/05/23 03/14/25 Unknown History docusate sodium 100 mg capsule 100 mg PO BID 03/14/25 08/12/25 Unknown History metoprolol succinate 100 mg 100 mg PO BID 04/07/25 08/12/25 08/12/25 History tablet,extended release 24 hr Exam Airway Mallampati Class: II TM Dist: >3cm Neck ROM: Full Loose/Missing/Broken Teeth: No Heart: RRR Lungs: CTA Assessment and Plan Assessment Anesthesia Assessment: Anesthesia Plan Discussed Final Anesthetic Review NPO: Yes ASA Class: II Final Preanesthetic Review: Meds/Allgs Chart Reviewed, Consent Obtained/Reviewed and Anes Risks/Benef Reviewed Patient Risk: Low Procedure Risk: Intermediate Anesthetic Plan Anesthetic Plan: MAC: Disposition: Standard PACU
[2025-08-08 14:15] VITALS: BMI 36.5
[2025-08-12 09:56] VITALS: BMI 36.4
[2025-08-12 10:09] VITALS: BP 144/78; PULSE 63; RESP 18; TEMP 36.6; O2SAT 99
[2025-08-12] MEDS: Lactated Ringers 1,000 ML 100 ML IVCONT (10:30)
--- NOTE | 2025-08-12 10:54 | MHC.SHP ---
Pre-Procedural Eval Section A - 24 Hr Update-Section A only Date of Service: 08/12/25 The patient is an INPATIENT: No Changes since office visit: No Cold of Flu in the past 2 weeks, No New Medical Problems, No Changes in Medication and No Patient answered all questions The patient has been examined within 24 hours of the surgical procedure. The History & Physical has been completed within 30 days and I have reviewed it.: Yes Section B - Complete if H&P > 30 days Chief Complaint: gerd,diarrhea Allergies: Allergies Allergy/AdvReac Type Severity Reaction Status Date / Time oxycodone (Percocet) Allergy Intermediate Itchiness Verified 08/12/25 10:01 LATEX GLUE Allergy Intermediate redness Uncoded 08/12/25 10:01 and inflammation Plan I have reviewed the history and physical and performed a pertinent physical examination on my patient. No changes have occurred unless specified. Time Spent With Patient Time: Total time managing care of this patient today ____ minutes.
[2025-08-12 11:42] VITALS: BP 97/53; PULSE 68; RESP 18; TEMP 36.1; O2SAT 96
[2025-08-12 11:50] VITALS: BP 96/56
[2025-08-12 11:57] VITALS: BP 97/60; PULSE 68; RESP 18; TEMP 36.1; O2SAT 96
--- NOTE | 2025-08-12 12:11 | OP_ITS ---
DATE OF SERVICE: 08/12/2025 SURGEON: Tu Rogers MD INDICATIONS: Gastroesophageal reflux disease and diarrhea. PREOPERATIVE DIAGNOSIS: POSTOPERATIVE DIAGNOSIS: PROCEDURE PERFORMED: Upper endoscopy with biopsy, colonoscopy to the terminal ileum with biopsy. ESTIMATED BLOOD LOSS: COMPLICATIONS: ANESTHESIA: Medications; monitored anesthesia care. ASSISTANTS: SPECIMENS: DESCRIPTION OF PROCEDURE: A history and physical were performed. The risks and benefits of the procedure were explained to the patient and informed consent was obtained. The patient was placed in the left lateral decubitus position. The Olympus video gastroscope was introduced into the esophagus, stomach, and duodenum. Examination was performed. The scope was removed. She was repositioned for colonoscopy. A digital rectal exam was performed and was found to be normal. The Olympus pediatric video colonoscope was introduced into the rectum and advanced to the cecum. The cecum was identified by transillumination, palpation, and identification of ileocecal valve. Examination was performed. The scope was removed. She tolerated both procedures well and was returned to recovery area in stable condition. FINDINGS: Upper endoscopy: 1. Esophagus: The esophagus was normal. There was an irregular EG junction. 2. Stomach: The stomach showed no evidence of masses, ulcers, or polyps. 3. Duodenum: The bulb and 2nd portion were normal. Biopsies were obtained from the antrum, duodenum, EG junction, and midesophagus. Colonoscopy: The terminal ileum was examined and appeared normal. The visualized colonic mucosa was normal. There was dobbins diverticulosis. No polyps were identified. The quality of the prep was good with some residual stool in the rectum, which was washed and suctioned. Retroflexed examination showed internal hemorrhoids. IMPRESSION: 1. Normal upper endoscopy. 2. Normal colonoscopy. RECOMMENDATION: 1. Follow up the biopsy results. 2. Repeat colonoscopy is recommended every 10 years for average-risk individuals. MD MARY KAY Robbins/FRED / [phone]
[2025-08-12 12:12] VITALS: BP 113/68; PULSE 55; RESP 14; TEMP 36.3; O2SAT 100
== END 2025-08-12 12:27 | disposition home or self-care (01) ==
PROVIDERS: PCP Internal Medicine; Visit Provider Internal Medicine Gastroenterology
PROC: (CPT 45380; principal; 2025-08-12 10:50)
DX: K21.9 Gastro-esophageal reflux disease without esophagitis (principal); R19.7 Diarrhea, unspecified; K57.30 Diverticulosis of large intestine without perforation or abscess without bleeding
CPT/HCPCS: 45380; 43239; 88305; 88313; 88342; J2003; J2704

== ENCOUNTER 2025-08-18 09:21 | Outpatient (AMB) | payer OTHER, SELFPAY ==
--- OUTSIDE RECORDS SUMMARY | 2024-06-20 08:48 | XMS_ITS | Encounter Summary ---
Author Organization [place] [address] Care Team Providers Care [employer] Name Role Phone Dung Briceño MD Primary Care Provider [phone] Encounter Details Date Type Department Care Team (Latest Contact Info) Description 06/20/2024 9:48 AM EDT Hospital Encounter TH HISTORIC ENCOUNTERS [facility] ONLY Nam Chua MD [address] [place] [address] [address] [place] [address] Unspecified cystostomy status (CMS/HCC V24, CMS/HCC V28) Social History Tobacco Use Types Packs/Day Years Used Date Smoking Tobacco: Former Cigarettes 0 Q uit: 12/21/1981 Smokeless Tobacco: Never Alcohol Use Standard Drinks/Week Comments Yes 0 (1 standard drink = 0.6 oz pur e alcohol) Housing Instability Answer Date Recorde d Are you worried that in the next 2 months you may not have stable housing? No 12/07/2024 Food Access & Nutrition Answer Date Rec orded Do you have access to a vari ety of food including fruits and vegetables? Yes 12/07/2024 Health Literacy Answer Date Recorded How often do you need to hav e someone help you when you read instructions, pamphlets, or other written material from your doctor or pharmacy? Never 12/07/2024 Caregiver: How often do you need to have someone help you when you read instructions, pamphlets, or other written material from your doctor or pharmacy? Not on file 12/07/2024 Financial Risk Answer Date Recorded How hard is it for you to pa y for the very basics like food, housing, medical care, and air conditioning / heating? Not very hard 12/07/2024 Transportation Answer Date Recorded Has the lack of transportati on kept you from meetings, work, or from getting things needed for daily living? No Has the lack of transportati on kept you from medical appointments or from getting medications? No 12/07/2024 Social Isolation Answer Date Recorded How often do you feel lonely or isolated from th ose around you? Never 12/07/2024 Food Risk Answer Date Recorded Within the past 12 months we worried whether our food would run out before we got money to buy more. Never true 12/07/2024 Within the past 12 months th e food we bought just didn't last and we didn't have money to get more. Never true 12/07/2024 Dependent Care Answer Date Recorded Do you need help finding or paying for care for your loved ones. For example, early childhood associate or elderly care for an older adult? No 12/07/2024 Education Answer Date Recorded Do you think completing more education or training, like finishing a GED, going to college, or learning a trade, would be helpful for you? Patient declined 12/07/2024 Employment and Income Answer Date Recor ded During the last four weeks, have you been actively looking for work? No 12/07/2024 Living Situation Answer Date Recorded What is your living situation? Unrecognized valu e 12/07/2024 Comments No Sex and Gender Information Value Date Recorded Sex Assigned at Not on file Legal Sex Female 7:57 PM EST Gender Identity Not on file Sexual Orientation Not on file documented as of this encounter Plan of Treatment Not on file documented as of this encounter Procedures Procedure Name Priority Date/Time Associated Diagnosis Comments CR CYSTOGRAM VOIDING Routine 06/21/2024 11:50 AM EDT Unspecified cystostomy status ([facility] V24, [facility] V28) documented in this encounter Results * CR CYSTOGRAM VOIDING (06/21/2024 11:50 AM EDT) Anatomical Region Laterality Modality Radiographic Juliann ging 06/20/2024 10:0 6 AM EDT Narrative 06/21/2024 11:50 AM EDT [facility] Diagnostic Imaging Department [address] [place] [address] Patient: STEFANIE GOINS /Age/Sex: 1965 - 59 - F Unit#: [id number] Location/Status: SPDIGEN/REG CLI Mnemonic/Ordering Site: CYSTOVOID/SPDI Ordering Physician: NAM CHUA MD CR Cystogram Voiding - 06/20/24 - 1050 Report Status:Signed FINDINGS: Retrograde cystogram COMPARISON: None HISTORY: Patient is a 59-year-old female with 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 TECHNIQUE: Patient comes to the radiology department with Amanda catheter in place. Approximately 300 cc of Isovue-300 was dripped by gravity retrograde into patient's bladder until patient experienced sensation of fullness. Patient was placed supine on the fluoroscopy table and images in the AP, RPO, LPO and left lateral positions were obtained under fluoroscopic control. FINDINGS: The wall of the bladder is smooth. There is no filling defect, no evidence of contrast leak or extravasation. DAP: 22.24 Gycm^2 Exam dictated by: Marcy Syed PA-C Performing and supervising physician: Arin Banda MD IMPRESSION: Normal-appearing bladder without evidence of filling defect, contrast leak or extravasation. Dictating Physician: ARIN BANDA Electronically Signed by: ARIN BANDA Dic Date/Time: 06/20/24 1241 Sign date/Time: 06/21/24 1150 Procedure Note Arin Banda MD - 06/29/2024 [facility] Diagnostic Imaging Department [address] [place] [id number] Patient: STEFANIE GOINS /Age/Sex: 1965 - 59 - F Unit#: [id number] Location/Status: SPDIGEN/REG CLI Mnemonic/Ordering Site: CYSTOVOID/SPDI Ordering Physician: NAM CHUA MD CR Cystogram Voiding - 06/20/24 - 1050 Report Status:Signed FINDINGS: Retrograde cystogram COMPARISON: None HISTORY: Patient is a 59-year-old female with 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 TECHNIQUE: Patient comes to the radiology department with Amanda catheterin place. Approximately 300 cc of Isovue-300 was dripped by gravityretrograde into patient's bladder until patient experienced sensation of fullness. Patient was placed supine on the fluoroscopy table and images in the AP,RPO, LPO and left lateral positions were obtained under fluoroscopic control. FINDINGS: The wall of the bladder is smooth. There is no filling defect,no evidence of contrast leak or extravasation. DAP: 22.24 Gycm^2 Exam dictated by: Marcy Syed PA-C Performing and supervising physician: Arin Banda MD IMPRESSION: Normal-appearing bladder without evidence of filling defect, contrast leakor extravasation. Dictating Physician: ARIN BANDA Electronically Signed by: ARIN BANDA Dic Date/Time: 06/20/24 1241 Sign date/Time: 06/21/24 1150 Nam Chua MD IMG XR PROCEDURES Final Result documented in this encounter Visit Diagnoses Diagnosis Unspecified cystostomy status ([facility] V24, [facility] V28) Unspecified cystostomy status documented in this encounter Care Teams [employer] Relationship Specialty Start Date End Date Dung Briceño MD [address] [place], [place] [address] PCP - General 03/05/04 07/13/25 documented as of this encounter
--- OUTSIDE RECORDS SUMMARY | 2025-08-12 05:20 | XMS_ITS ---
Author Organization [facility] Address [address] [facility] [address] [place] [address] Care Team Providers Care Administrative Office Specialist Name Role Phone LAURA TERRY Primary Care Provider Nela Rogers Jr, Tu Dempsey REASON FOR VISIT gerd, diarrhea Encounters Encounter Location Date Provider Diagnosis [facility] Outpatient [address] [place] [id number] 08/12/2025 uT Rogers Jr Plan Of Treatment Next Appt Details Provider Name:Tu burgos Jr, 08/19/2026 09:00:00 AM, [address] [place] [address], Suite [facility], [place], [address], Progress Notes * NEFTALY ALCANTAROB:1965 (60 yo F)Acc No.[id number]:08/12/2025 EGD and COL/MAC Patient: RANDELL NICOLAS Provider: Paz Rogers MD :1965 A ge:60 Y S ex:Female Date:08/12/2025 Address:[address] [place], [place] [phone] Pcp:LAURA TERRY Subjective: * Chief Complaints: * G erd, diarrhea Billing Information: * Procedure Codes: * The named appointment provid er may or may not be the originator of this progress note, and it is not deemed complete until electronically signed by the appointment provider. Sign off status: Pending * Provider: Paz Rogers MD Date: 1 10/13/2024 Generated for Sharon smith/Carlie/Maryitting on: 1 10/19/2024 10:30 AM EST
--- OUTSIDE RECORDS SUMMARY | 2025-08-15 09:58 | XMS_ITS ---
Author Organization [facility] Address [address] [place] [address] Care Team Providers Care Ceramic Restorer Name Role Phone HARRISONDANNYLAURA Primary Care Provider Nela Rogers Jr, Tu Dempsey [phone] REASON FOR VISIT path Medications Medication SIG (Take, Route, Frequency, Duration) Notes Start Date End Date Status Pantoprazole Sodium 40 MG Tablet Delayed Release 1 tablet 1/2 to 1 hour before morning meal Orally Once a day; Duration: 30 days 08/15/2025 Active Encounters Encounter Location Date Provider Diagnosis [facility] [address] [place] [address] 08/15/2025 Tu Rogers Jr Plan Of Treatment Medication Medication Name Sig Start Date Stop Date Notes Omeprazole 20 MG Capsule Del ayed Release 1 capsule 1/2 to 1 hour before morning meal Orally Once a day Pantoprazole Sodium 40 MG Ta blet Delayed Release 1 tablet 1/2 to 1 hour before morning meal Orally Once a day; Duration: 30 days 08/15/2025 Next Appt Details Provider Name:Tu burgos Jr, 08/19/2026 09:00:00 AM, [address] [place] [address], [address], [place], [address], Progress Notes * NEFTALY ALCANTAROB:1965 (60 yo F)Acc No.[id number]:08/15/2025 Patient: RANDELL NICOLAS :1965 A ge:60 Y S ex:Female Address:[address] [place] [address], [address] * Refills Stop Omeprazole Capsule Delayed Release, 20 MG, Orally, 1 capsule 1/2 to 1 hour before morning meal, Once a day Start Pantoprazole Sodium Tablet Delayed Release, 40 MG, Orally, 30, 1 tablet 1/2 to 1 hour before morning meal, Once a day, 30 days, Refills=11 Subjective: * Chief Complaints: * P ath Plan: * Treatment: * true * Date: Generated for Sharon smith/Carlie/Blas on: 10/19/2024 10:30 AM EST
--- NOTE | 2025-08-18 09:23 | MHC.OFFVIS ---
Intake Visit Reasons: Kidney stones (set)UA) Intake Note: Patient is present for KIDNEY STONES Urology Medication:VITMIN C Antibiotic Allergy:NONE Blood Thinner:NONE TODAY'S PVR:0ML'S Construction Helper Required: No Allergies oxycodone (Percocet) Allergy (Intermediate, Verified 08/18/25 09:25) Itchiness LATEX GLUE Allergy (Intermediate, Uncoded 08/18/25 09:25) redness and inflammation Medication List - Last Reconciled 08/18/25 by Carlos A Teresa MD ascorbic acid (vitamin C) 1 g PO DAILY atorvastatin 10 mg PO DAILY docusate sodium 100 mg PO BID ibuprofen 800 mg PO Q8H losartan 50 mg PO DAILY metoprolol succinate ER 100 mg PO BID multivitamin 1 tab PO DAILY omega-3 fatty acids (Fish Oil Concentrate) 1,000 mg PO DAILY pantoprazole 40 mg PO DAILY [Probiotic ] HPI Comments Details: 08/18/2025--Stefanie is here as a new patient evaluation for kidney stones. The patient had abdominal ultrasound done in May which noted a 9 mm right kidney stone left renal cyst with possible vascular calcifications. History of Present Illness The patient is a 60 year old female presenting for a new patient evaluation for kidney stones. An abdominal ultrasound in May revealed a 9 mm right kidney stone, a left renal cyst, with calcifications, possible vascular. She reports experiencing intermittent, strong back pain on the right side, which does not occur daily and is of short duration. This is her first known kidney stone, though her daughter and brother have a history of them. Results - Abdominal ultrasound (June 23, 2025): Showed a 9 mm right kidney stone, a left renal cyst, with calcifications, possible vascular. Plan 1. Right Nephrolithiasis 2. Left Renal Cyst with Calcifications CT abdomen and pelvis with and without IV contrast 24 hour urine collection Schedule right [facility] Medical History Right nephrolithiasis Abdominal pain History of mammogram (~09/05/24) Lactose intolerance Prediabetes Breast lump Hyperlipidemia Hypertension Myocardial bridge Establishing care with new doctor, encounter for Family history of breast cancer Lump of right breast Diarrhea Arthritis Elevated cholesterol GERD (gastroesophageal reflux disease) Essential hypertension Surgical History History of colonoscopy (08/12/25) History of hysterectomy History of bladder surgery (~06/2024) Hx of arthroscopy of left knee Hx of foot surgery History of bilateral carpal tunnel release History of lumpectomy of left breast History of total hysterectomy History of cardiac catheterization (~05/16/18) Family History Father Brain cancer Mother Status post placement of cardiac pacemaker Breast cancer PONV (postoperative nausea and vomiting) Social History Housing: House Are you a primary resident care director to a significant other at home: No Do you presently have visiting nurse or other home services: No Alcohol intake: current Alcohol intake frequency: a few times a month Comment: aware of trip hazard Patient Tobacco Use Status: Former Tobacco user service: No Current occupational status: employed Cognitive needs: No Hearing needs: No Vision needs: Yes (rx glasses) Review of Systems Const All systems reviewed & are unremarkable except as noted in HPI and below Reports no additional complaints Eyes Reports no additional complaints ENT Reports no additional complaints Card Reports no additional complaints Resp Reports no additional complaints GI Reports no additional complaints Reports as per HPI Musc Reports no additional complaints Skin/Breast Reports system reviewed and no additional complaints, except as documented Neuro Reports no additional complaints Psych Reports no additional complaints Endo Reports no additional complaints Chandra/Lymph Reports no additional complaints Aller/Immun Reports no additional complaints Physical Exam Const General: cooperative, healthy appearing and no acute distress Nutritional Appearance: overweight Orientation/consciousness: patient oriented x3 HEENT Head: Yes normal to inspection, Yes normocephalic and Yes atraumatic Eyes Conjunctivae: conjunctivae normal Neck Neck: Yes normal visual inspection and Yes trachea midline Chest Chest palpation & inspection: normal inspection of the chest Resp Effort & Inspection: normal respiratory effort GI Inspection: Yes normal to inspection Neuro General: patient oriented x3 Psych Appearance: grossly normal Office Procedures Post Void Residual Post Residual Void Post Void Residual (PVR): 0 41412-Uvos Void Residual by ultrasound Results Reviewed Results Reviewed: Date of Service: 06/23/25 CLINICAL HISTORY: R10.9 - Unspecified abdominal pain US abdomen complete Comparison: None provided Findings: The visualized pancreas is normal, tail is obscured by bowel gas. The visualized aorta and inferior vena cava are normal caliber. The liver is normal in size, right lobe length is 16.5 cm. Normal in echogenicity, no discrete lesion is visualized in the imaged liver. No intrahepatic bile duct dilatation. The common duct is 4 mm in diameter. Physiologic distention of the gallbladder, no stone or sludge, focal gallbladder body wall thickening without abnormal vascular flow on the hepatic side, negative sonographic Tovar's sign. The main portal vein is patent with antegrade flow. The right kidney demonstrates 9 mm calculus in the lower pole, otherwise normal, 12.8 cm in length. The left kidney demonstrates simple cyst 1.6 cm in midpole , probable vascular calcification noted, otherwise normal, 12.4 cm in length. The spleen is mildly enlarged, 13.4 cm in length, no focal lesion is seen. No free fluid in the abdomen. Impression: 1. Nonobstructing right nephrolithiasis. 2. Mild splenomegaly. 3. Focal wall thickening of the gallbladder body, non-specific, may reflect adenomyomatosis, MRI can be helpful for further evaluation if warranted. Assessment & Plan Assessment & Plan (1) Right nephrolithiasis: Comment: 9mm Nonobstructing right nephrolithiasis Code(s): N20.0 - Calculus of kidney Category: Medical (2) Renal cyst, left: Code(s): N28.1 - Cyst of kidney, acquired Category: Medical (3) Abdominal pain: Code(s): R10.9 - Unspecified abdominal pain Category: Medical (4) Microscopic hematuria: Code(s): R31.29 - Other microscopic hematuria Category: Medical (5) Complex renal cyst: Code(s): N28.1 - Cyst of kidney, acquired Category: Medical (6) Right flank pain: Code(s): R10.A1 - Flank pain, right side Category: Medical Plan Plan 1. Right Nephrolithiasis 2. Left Renal Cyst with Calcifications CT abdomen and pelvis with and without IV contrast 24 hour urine collection Schedule right ESWL Orders: Orders CT abdomen pelvis wo IV con Today N20.0 - Calculus of kidney, N28.1 - Cyst of kidney, acquired, R10.A1 - Flank pain, right side, R31.29 - Other microscopic hematuria Patient Instructions: The patient had an opportunity to ask questions regarding treatment plan. The patient expressed understanding and agreement with the above treatment plan. The patient is aware they should contact our office by phone for worsening of their current condition or the appearance of new symptoms. Compliance is encouraged with any medications and followup testing that is ordered. It is a privilege to be allowed the opportunity to participate in the urologic care of your patient. If you have any questions or concerns regarding treatment for the above conditions please do not hesitate to contact me. The office telephone contact is [phone]. This note is constructed in part using voice recognition software. While every effort has been made to ensure accuracy allied health teacher errors may have been included. Yours sincerely, Carlos A Teresa MD Scribe Plan - Not visible on output: Patient was informed and verbally consented to the use of an ambient scribe for clinic note documentation during this visit. Coding Level of Care Code New Pt Level 4 (04931) Diagnoses Right nephrolithiasis N20.0 Renal cyst, left N28.1 Abdominal pain R10.9 Microscopic hematuria R31.29 Complex renal cyst N28.1 Right flank pain R10.A1 CPT Codes Post Residual Void - PVR CPT Code: 15799-Roop Void Residual by ultrasound ([id number])
--- OUTSIDE RECORDS SUMMARY | 2025-08-18 10:30 | XMS_ITS | Patient Health Record ---
Author Organization [facility] Address [address] [place] [address] Care Team Providers Care Residential Insurance Inspector Name Role Phone Dung Briceño MD Primary Care Provider Unavailab Julio Wilcox Unavailable [phone] Allergies Allergen (clinical drug ingredient) Drug/Non Drug Allergy documented on EMR Reaction Allergy Type Onset Date Status acetaminophen / oxycodone Percocet itchy Drug Allergy Active adhesive tape rash Drug Allergy Act jb Reason For Referral No Information Medications Medication SIG (Take, Route, Frequency, Duration) Notes Start Date End Date Status [place] 3 Active Probiotic Active Aspir-81 81 MG [...] W/U Status Risk Notes Problem Plantar wart (01859107) Plantar wart (B07.0) Active confirmed Plan Of Treatment Pending Test Test Name Order Date 08221-Zxhm Destruction, 09-1006/10/2011 49327-Uzfj Destruction, 09-1006/24/2011 30625-Gcdm Destruction, 09-1007/08/2011 20073-Vjvs Destruction, 09-1007/29/2011 35081-Ouuz Destruction, 09-1009/02/2011 77017-Rsan Destruction, 09-1009/23/2011 01038-Cdir Destruction, 09-1002/01/2019 28718-Ablcpjwv Plate 07/29/2011 87578-Ngbnmekj Plate 09/02/2011 31227-Mrxfxcgy Plate Each Additional 09/2010 07135,Q2370-NBE TENDON SHEATH/LIGAMENT 0 04/04/2014 Insurance Providers Payer Name Payer Address Payer Phone Subscriber Number Group Number Insured Name Patient Relationship to Insured Coverage Start Date Coverage End Date [facility] [address] [place] [address] [id number] Stefanie Goins Self - patient is the [...]
--- OUTSIDE RECORDS SUMMARY | 2025-08-18 10:30 | XMS_ITS | Patient Health Record ---
Author Organization [facility] Address [address] [place] [address] Care Team Providers Care Security Guard Name Role Phone HARRISON LAURA Primary Care Provider Tu Miller Jr Unavailable Allergies Allergen (clinical drug ingredient) Drug/Non Drug Allergy documented on EMR Reaction Allergy Type Onset Date Status acetaminophen / oxycodone oxyCODONE-Acetaminoph en Unknown Drug Allergy Active Latex Latex Unknown Allergy Active Results Component Value Reference Range Notes Pathology Reviewed date:08/15/2025 08:51:46 AM Interpretation: Performing Lab:[facility], [address] [place] [phone] Notes/Report: Reason For Referral No Information Medications Medication SIG (Take, Route, Frequency, Duration) Notes Start Date End Date Status Multivitamin - Tablet 1 tablet Orally On ce a day Active Atorvastatin Calcium 10 MG Tablet 1 tablet Orally Once a day Active Ibuprofen 800 MG Tablet 1 tablet with fo od or milk as needed Orally every 8 hrs Active Metoprolol Succinate ER 100 MG Tablet Extended Release 24 Hour 1 tablet Orally twice a day Active Losartan Potassium 50 MG Tablet 1 tablet Orally Once a day Active Pantoprazole Sodium 40 MG Tablet Delayed Release 1 tablet 1/2 to 1 hour before morning meal Orally Once a day; Duration: 30 days 08/15/2025 Active Magnesium 200 MG Tablet 2 tablets [...] Info Options Details Miscellaneous: Marital status: 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 Problems Problem Type SNOMED Code ICD Code Onset Dates Problem Status W/U Status Risk Notes Problem Diarrhea (20721035) Diarrhea (R19.7) Active confirmed Problem Gastroesophageal reflux disease (475836395) GERD (gastroesoph ageal reflux disease) (K21.9) Active confirmed Vital Signs Heart Rate 64 /min 08/04/2025 Temperature 97.1 degrees Fahrenheit 08/04/2025 Blood pressure diastolic 001 mm Hg 08/04/2025 Height 66 in 08/04/2025 Blood pressure systolic 01 mm Hg 08/04/2025 Weight 226.0 lbs 08/04/2025 BMI 36.47 kg/m2 08/04/2025 Encounters Encounter Location Date Provider Diagnosis [facility] Outpatient [address] [place] [id number] 08/12/2025 Tu Rogers Jr [facility] [address] [place] [phone] 08/04/2025 Tu Rogers Jr GERD (gastroesophageal reflux disease) K21.9 and Diarrhea R19.7 [facility] [address] [place] [phone] 08/15/2025 Tu Rogers Jr [facility] [address] [place] [phone] 08/15/2025 Tu Rogers Jr Assessments Encounter Date Diagnosis (ICD Code) Assessment [...] Next Appt Details Provider Name:Tu burgos , 08/19/2026 09:00:00 AM, [address] [place] [address], [address], [place], [address], Insurance Providers Payer Name Payer Address Payer Phone Subscriber Number Group Number Insured Name Patient Relationship to Insured Coverage Start Date Coverage End Date [facility] [address] [place] [phone] [id number] RANDELL ALCANTAR Self - patient is the [...]
--- OUTSIDE RECORDS SUMMARY | 2025-08-18 10:30 | XMS_ITS | Clinical Summary ---
Author Organization [facility] Address [address] [facility] [address] [place] [address] Phone Care Team Providers Care Camera Control Operator Name Role Phone Radha Hyde PA-C Primary [...] for pain (specific location in comments). Active aibthlag-mcl-cq rrous gluconate (CENTRUM WITH IRON) 9 mg iron/15 mL Liqd Take 15 mL by mouth daily. 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 [address] [place] [address] [place] [address] Piper Iniguez, MERCH[employer] SE[employer]ON[employer] RX Claification 05/21/2025 9:00 AM EDT Office Visit [facility] [address] [place] [address] Lilia Olivas MD Encounter for gynecological examination [...] Date Last Indicated MDR-GN 02/20/2025 02/20/2025 Insurance [facility] [place] [place] [address] HMO [facility] [place] [place] [address] [place] [address] [place] [address] HMO Care Teams Camera Control Operator Relationship Specialty Start Date End Date Radha Hyde PA-C [address] [place] [address], [address] [place] [address] [email or web address] PCP - General Physician [employer] 02/26/25 Additional Source Comments The information contained in this document represents components of the legal health record. It is not the complete legal health record.[facility]
--- OUTSIDE RECORDS SUMMARY | 2025-08-18 10:31 | XMS_ITS | Clinical Summary ---
Author Organization [facility] Address [address] [place] [address] Care Team Providers Care Biologist Aide Name Role Phone Jak Connors MD Primary Care Provider [phone]- [phone] Allergies Active Allergy Reactions Criticality Noted Date [...] (PriLOSEC) [address] capsule 8 Active losartan (COZAAR) 50 mg tablet Take [...] WHI. I discussed risks including cardiovascular disease- [place], DVT, stroke. I discussed small increased risk [...] new medication and thus does not have intermediate safety data. However, the literature I have [...] AM EST Office Visit Orthopedic Surgery - [address] [place] [address] Adela Ovalles MD Arthritis of carpometacarpal (CMC) joint of right thumb (Primary Dx) from Last 3 Months Surgical History Surgery Date Site/Laterality Comments OTHER SURGICAL HISTORY PROCEDURE: HISTORICAL PELVISCOPY VAGINAL DELIVERY PROCEDURE: [place] VAGINAL DELIVERY ONLY; COMMENT: x3 OTHER SURGICAL HISTORY 2001 PROCEDURE: [place] TOTAL ABDOMINAL HYSTERECT W/WO RMVL TUBE OVARY; [...] your loved ones. For example, child and adolescent therapist or elderly care for an older [...] F Vag-S pont Livin g Jennie Delivery Location:[facility] Comments:uncompl 989 Term 40w 0d 2778 g (98 oz) F Vag-S pont Livin g Michaela Delivery Location:[facility] Comments:uncompl 991 Term 40w 0d 4252 g (150 oz) M Vag-S pont Livin g Hasmukh Delivery Location:[facility] Comments:uncompl Last Filed Vital Signs Vital Sign [...] Blood Test 08/11/2022 COVID-19 Vaccine ( - season) 2025 07/23/2021, 10/22/2020, 10/01/2020 DTaP,Tdap,and Td [...] EST Pain in finger of both hands MD ARTHROCENTESIS/ASPI RATION/INJECTION SMALL JOINT/BURSA WO U/S GUIDANCE [...] left index. Impression: Bilateral basal joint arthritis us Adela Ovalles MD IMG XR PROCEDURES Final Resul t * MD ARTHROCENTESIS/ASPIRATION/INJECTION SMALL JOINT/BURSA WO U/S GUIDANCE (07/14/2025 10:45 AM EST) Narrative Adela Ovalles MD - 07/14/2025 10:45 AM EST Adela [...] the patient verbalized understanding. Informed Consent: Site: [facility] Laterality: Right Informed consent discussion completed by Physician/PIPER with patient: Verbal Pre-procedure timeout performed: yes Adela Ovalles MD IN CLINIC/BEDSIDE ORDERABLES Final Result * Colonoscopy (01/20/2017) Colonoscopy NO INTERPRETATION , ABSTRACTED Anatomical Region Laterality Modality Other Historical Provider MD HEALTH MAINTENANCE Final Result from Last 3 Months or Most Recently Relevant to Health Maintenance [place] [address] [address] [place] [address] Care Teams Biologist Aide Relationship Specialty Start Date End Date Jak Connors MD [facility] [address] [place] [address] [address] [place] [address] PCP - General Internal Medicine 07/14/25
== END 2025-08-18 10:03 | disposition home or self-care (01) ==
LOC: HO.HUSH 09:22
PROVIDERS: PCP Internal Medicine; Visit Provider Urology
DX: N20.0 Calculus of kidney (principal); N28.1 Cyst of kidney, acquired; R10.9 Unspecified abdominal pain; R31.29 Other microscopic hematuria; R10.A1 Flank pain, right side; Z13.9 Encounter for screening, unspecified
CPT/HCPCS: 99204

== ENCOUNTER → 2025-08-18 09:21 | Outpatient (BNVA) | payer OTHER, SELFPAY | PROVIDERS: PCP Internal Medicine; Visit Provider Urology | DX: N20.0 Calculus of kidney (principal); N28.1 Cyst of kidney, acquired; R31.29 Other microscopic hematuria; R10.A1 Flank pain, right side | CPT/HCPCS: 51798; 81003 ==

== ENCOUNTER 2025-08-27 15:00 | Outpatient (REF) | payer OTHER, SELFPAY ==
--- OUTSIDE RECORDS SUMMARY | 2024-06-20 08:48 | XMS_ITS | Encounter Summary ---
Author Organization [facility] [place] [address] Care Team Providers Care Fence Installer Foreman Name Role Phone Dung Briceño MD Primary Care Provider [phone] Encounter Details Date Type Department Care Team (Latest Contact Info) Description 06/20/2024 9:48 AM EDT Hospital Encounter TH HISTORIC ENCOUNTERS [facility] ONLY Nam Chua MD [address] [place] [address] [address] [place] [address] Unspecified cystostomy status (CMS/HCC V24, CMS/HCC V28) [...] for your loved ones. For example, child care provider or elderly care for an older adult? [...] 06/21/2024 11:50 AM EDT Unspecified cystostomy status ([facility] V24, [facility] V28) documented in this encounter Results * CR CYSTOGRAM VOIDING (06/21/2024 11:50 AM EDT) Anatomical Region Laterality Modality Radiographic Juliann ging 06/20/2024 10:0 6 AM EDT Narrative 06/21/2024 11:50 AM EDT [facility] Diagnostic Imaging Department [address] [place] [address] Patient: STEFANIE GOINS /Age/Sex: 1965 - 59 - F Unit#: [id number] Location/Status: SPDIGEN/REG CLI Mnemonic/Ordering Site: CYSTOVOID/SPDI Ordering [...] Procedure Note Arin Banda MD - 06/29/2024 [facility] Diagnostic Imaging Department [address] [place] [address] Patient: STEFANIE GOINS /Age/Sex: 1965 - 59 - F Unit#: [id number] Location/Status: SPDIGEN/REG CLI Mnemonic/Ordering Site: CYSTOVOID/SPDI Ordering [...] encounter Visit Diagnoses Diagnosis Unspecified cystostomy status ([facility] V24, [facility] V28) Unspecified cystostomy status documented in this encounter Care Teams Fence Installer Foreman Relationship Specialty Start Date End Date Dung Briceño MD [address] [place], [place] [address] PCP - General 03/05/04 07/13/25 documented as of this encounter
--- OUTSIDE RECORDS SUMMARY | 2025-08-12 05:20 | XMS_ITS ---
Author Organization [facility] Address [address] [facility] [address] [place] [address] Care Team Providers Care Weigher And Mixer Name Role Phone LAURA TERRY Primary Care Provider Nela Rogers Jr, Tu Dempsey REASON FOR VISIT gerd, diarrhea Encounters Encounter Location Date Provider Diagnosis [facility] Outpatient [address] [place] [id number] 08/12/2025 Tu Rogers Jr Plan Of Treatment Next Appt Details Provider Name:Tu burgos Jr, 08/19/2026 09:00:00 AM, [address] [place] [address], Suite [facility], [place], [address], Progress Notes * NEFTALY ALCANTAROB:1965 (60 yo F)Acc No.[id number]:08/12/2025 EGD and COL/MAC Patient: RANDELL NICOLAS Provider: Paz Rogers MD :1965 A ge:60 Y S ex:Female Date:08/12/2025 Address:[address] [place], [place] [id number] Pcp:LAURA TERRY Subjective: * Chief Complaints: * G erd, diarrhea Billing Information: * Procedure Codes: * The named appointment provid er may or may not be the originator of this progress note, and it is not deemed complete until electronically signed by the appointment provider. Sign off status: Pending * Provider: Paz Rogers MD Date: 10/13/2024 Generated for Sharon smith/Carlie/Blas on: 03:49 PM EST
--- NOTE | ~2025-08-27 | CT_ITS ---
EXAMINATION: CT ABDOMEN PELVIS WITHOUT IV CONTRAST HISTORY: R31.29 - Other microscopic hematuria COMPARISON: There are no prior studies available for comparison. TECHNIQUE: CT scan of the abdomen and pelvis was performed without contrast using standard departmental protocol. Coronal and sagittal reformatted images were generated and reviewed. Oral contrast material was not administered per department protocol. This CT exam was performed with one or more of the following dose reduction techniques: automated exposure control, adjustment of the mA and/or kV according to patient size, use of iterative reconstruction technique. DLP: 697 mGy-cm FINDINGS: LOWER CHEST: The visualized lung bases are clear. There is no pleural effusion. CARDIOVASCULATURE: The heart is normal in size. There is no pericardial effusion. LIVER: The liver is normal in size and contour. The liver has an unremarkable unenhanced appearance. GALLBLADDER / BILE DUCTS: The gallbladder is unremarkable. There is no intra or extrahepatic biliary ductal dilatation. SPLEEN: The spleen is normal in size and has an unremarkable unenhanced appearance. PANCREAS: The pancreas has an unremarkable unenhanced appearance. ADRENAL GLANDS: Unremarkable. KIDNEYS/RETROPERITONEUM: There is a 6 mm nonobstructing calculus in a lower pole calyx of the right kidney and a 1 mm nonobstructing calculus in the interpolar region of the left kidney.. There is no hydronephrosis or hydroureter. No ureteral calculi are identified. LYMPH NODES: No retroperitoneal lymphadenopathy is identified in the abdomen or pelvis. VASCULATURE: The abdominal aorta is normal in caliber. MESENTERY/PERITONEUM: No free fluid. No masses. There is no free intraperitoneal gas. STOMACH: The stomach is unremarkable. SMALL BOWEL: The small bowel is normal in caliber. COLON: There is diverticulosis of the colon, without evidence of diverticulitis. APPENDIX: Normal. URINARY BLADDER/PELVIC ORGANS: The urinary bladder is collapsed, limiting evaluation. The patient is status post hysterectomy. BONES / SOFT TISSUES: There is mild degenerative disc disease of the spine. CT/CT abdomen pelvis wo IV con IMPRESSION: 1. Bilateral nephrolithiasis as described, without evidence of ureteral obstruction. 2. Colonic diverticulosis without evidence of diverticulitis. Electronically signed by: Kwesi Green MD 08/27/2025 03:24 PM EST RUPINDER
--- OUTSIDE RECORDS SUMMARY | 2025-08-27 15:50 | XMS_ITS | Clinical Summary ---
Author Organization [facility] Address [address] [facility] [address] [place] [address] Phone Care Team Providers Care Grades 9 12 Tutor Name Role Phone Radha Hyde PA-C Primary [...] for pain (specific location in comments). Active eblfrzsh-vkv-vwe mary gluconate (CENTRUM WITH IRON) 9 mg iron/15 mL Liqd Take 15 mL by mouth daily. Active omega 3-phk-wav-fish oil 1,000 mg (120 mg-180 mg) Cap Take 1 capsule by mouth daily. Active zinc sulfate 220 mg Tab Take 220 mg by mouth daily. Active losartan (COZAAR) 50 MG tablet 50 mg. Active magnesium oxide 500 mg magnesium Tab Take by mouth. Activ e fexofenadine (RICCARDO ALLERGY) 60 MG tablet Riccardo [...] 3 billion cell Cap Probiotic Act jb omega 1-cvf-dpb-fish oil 1,000 mg (250 mg-750 mg)/5 mL Liqd [place] 3 Active calcium carbonate-vitami n D3 1,000 mg-20 mcg (800 unit) Tab Calcium Active omeprazole (PRILOSEC) 20 MG capsule Take 20 mg by mouth daily. Active atorvastatin (LIPITOR) 20 MG tablet Take 1 tablet by mouth every morning. 5 Active estradioL (ESTRACE) 0.01 % (0.1 mg/gram) vaginal cream Place 0.5 g vaginally daily. 42 g 1 5 Active estradioL (VIVELLE-DOT) 0.05 mg/[address] 1 patch onto the skin 2 (two) times a week. 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 [address] [place] [address] Lilia Olivas MD Menopause syndrome (Primary Dx) 06/10/[address] [facility] [address] [place] [address] Piper Kerns LPN RX Claification from Last 3 Months Social History Tobacco [...] Date Last Indicated MDR-GN 02/20/2025 02/20/[address] [place], [place] [address] [place] [place] [address] [place] [address]O [facility] HMO Care Teams Grades 9 12 Tutor Relationship Specialty Start Date End Date Radha Hyde PA-C [address] [place] [address] PCP - General Physician Network Field Engineer 02/26/25 Additional Source Comments The information contained in this document represents components of the legal health record. It is not the complete legal health record.[facility]
--- OUTSIDE RECORDS SUMMARY | 2025-08-27 15:50 | XMS_ITS | Patient Health Record ---
Author Organization [facility] Address [address] [place] [address] Care Team Providers Care Obgyn Hospitalist Physician Name Role Phone HARRISON LAURA Primary Care Provider Tu Miller Jr Unavailable [phone] Allergies Allergen (clinical drug ingredient) Drug/Non Drug Allergy documented on EMR Reaction Allergy Type Onset Date Status acetaminophen / oxycodone oxyCODONE-Acetaminoph en Unknown Drug Allergy Active Latex Latex Unknown Allergy Active Results Component Value Reference Range Notes Pathology Reviewed date:08/15/2025 08:51:46 AM Interpretation: Performing Lab:[facility], [address] [place] [phone] Notes/Report: Reason For Referral No Information Medications [...] Info Options Details Miscellaneous: 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 Problems Problem Type SNOMED Code ICD Code Onset Dates Problem Status W/U Status Risk Notes Problem Diarrhea (93841051) Diarrhea (R19.7) Active confirmed Problem Gastroesophageal reflux disease (865525017) GERD (gastroesoph ageal reflux disease) (K21.9) Active confirmed Vital Signs Heart Rate 64 /min 08/04/2025 Temperature 97.1 degrees Fahrenheit 08/04/2025 Blood pressure diastolic 001 mm Hg 08/04/2025 Height 66 in 08/04/2025 Blood pressure systolic 01 mm Hg 08/04/2025 Weight 226.0 lbs 08/04/2025 BMI 36.47 kg/m2 08/04/2025 Encounters Encounter Location Date Provider Diagnosis [facility] Outpatient [address] [place] [id number] 08/12/2025 Tu Rogers Jr [facility] [address] [place] [phone] 08/04/2025 Tu Rogers Jr GERD (gastroesophageal reflux disease) K21.9 and Diarrhea R19.7 [facility] [address] [place] [phone] 08/15/2025 Tu Rogers Jr [facility] [address] [place] [phone] 08/15/2025 Tu Rogers Jr Assessments Encounter Date [...] Provider Name:Tu burgos , 08/19/2026 09:00:00 AM, [address] [place] [address], [address], [place], [address], Insurance Providers Payer Name Payer Address Payer Phone Subscriber Number Group Number Insured Name Patient Relationship to Insured Coverage Start Date Coverage End Date [facility] [address] [place] [phone] [id number] RANDELL ALCANTAR Self - patient is the [...]
--- OUTSIDE RECORDS SUMMARY | 2025-08-27 15:50 | XMS_ITS | Clinical Summary ---
Author Organization [facility] Address [address] [place] [address] Care Team Providers Care Paraprofessional Aide Teacher Name Role Phone Jak Connors MD Primary Care Provider +1- [phone] Allergies Active Allergy Reactions Criticality Noted Date [...] WHI. I discussed risks including cardiovascular disease- [place], DVT, stroke. I discussed small increased risk [...] new medication and thus does not have jail safety data. However, the literature I have [...] EST Office Visit Orthopedic Surgery - [address] [place] [address] Adela Ovalles MD Arthritis of carpometacarpal (CMC) joint of right thumb (Primary Dx) from Last 3 Months Surgical History Surgery Date Site/Laterality Comments OTHER SURGICAL HISTORY PROCEDURE: HISTORICAL PELVISCOPY VAGINAL DELIVERY PROCEDURE: [place] VAGINAL DELIVERY ONLY; COMMENT: x3 OTHER SURGICAL HISTORY 2001 PROCEDURE: [place] TOTAL ABDOMINAL HYSTERECT W/WO RMVL TUBE OVARY; [...] care for your loved ones. For example, exceptional children's teacher or elderly care for an older [...] F Vag-S pont Livin g Jennie Delivery Location:[facility] Comments:uncompl 989 Term 40w 0d 2778 g (98 oz) F Vag-S pont Livin g Michaela Delivery Location:[facility] Comments:uncompl 991 Term 40w 0d 4252 g (150 oz) M Vag-S pont Livin g Hasmukh Delivery Location:[facility] Comments:uncompl Last Filed Vital Signs Vital [...] EST Pain in finger of both hands [place] ARTHROCENTESIS/ASPI RATION/INJECTION SMALL JOINT/BURSA WO U/S GUIDANCE [...] IMG XR PROCEDURES Final Resul t * [place] ARTHROCENTESIS/ASPIRATION/INJECTION SMALL JOINT/BURSA WO U/S GUIDANCE (07/14/2025 [...] the patient verbalized understanding. Informed Consent: Site: [facility] Laterality: Right Informed consent discussion completed by Physician/PIPER with patient: Verbal Pre-procedure timeout performed: yes Adela Ovalles MD IN CLINIC/BEDSIDE ORDERABLES Final Result * Colonoscopy (01/20/2017) Colonoscopy NO INTERPRETATION , ABSTRACTED Anatomical Region Laterality Modality Other Historical Provider MD HEALTH MAINTENANCE Final Result from Last 3 Months or Most Recently Relevant to Health Maintenance Insurance [place] [address] [address] [place] [address] Care Teams Paraprofessional Aide Teacher Relationship Specialty Start Date End Date Jak Connors MD [facility] [address] [place] [address] [address] [place] [address] PCP - General Internal Medicine 07/14/25
--- OUTSIDE RECORDS SUMMARY | 2025-08-27 15:50 | XMS_ITS | Patient Health Record ---
Author [facility] Address [address] [place] [address] Care Team Providers Care Professor Of Music Name Role Phone Dung Briceño MD Primary Care Provider Unavailab Julio Wilcox Unavailable [phone] Allergies Allergen (clinical drug ingredient) Drug/Non Drug Allergy documented on EMR Reaction Allergy Type Onset Date Status acetaminophen / oxycodone Percocet itchy Drug Allergy Active adhesive tape rash Drug Allergy Act jb Reason For Referral No Information Medications Medication SIG (Take, Route, Frequency, Duration) Notes Start Date End Date Status [place] 3 Active Probiotic Active Aspir-81 81 MG [...] W/U Status Risk Notes Problem Plantar wart (21624633) Plantar wart (B07.0) Active confirmed Plan Of Treatment Pending Test Test Name Order Date 90696-Iqvm Destruction, 09-1006/10/2011 32139-Evpy Destruction, 09-1006/24/2011 20160-Rphu Destruction, 09-1007/08/2011 32126-Ybdi Destruction, 09-1007/29/2011 95365-Awtj Destruction, 09-1009/02/2011 93477-Grjj Destruction, 09-1009/23/2011 75024-Mmjj Destruction, 09-1002/01/2019 42166-Udwxyqgb Plate 07/29/2011 41942-Cfubndlt Plate 09/02/2011 46997-Xilnkpmn Plate Each Additional 09/2010 26969,N1180-OZX TENDON SHEATH/LIGAMENT 0 04/04/2014 Insurance Providers Payer Name Payer Address Payer Phone Subscriber Number Group Number Insured Name Patient Relationship to Insured Coverage Start Date Coverage End Date [facility] [address] [place] [id number] Stefanie Goins Self - patient is the [...]
== END 2025-08-27 15:01 | disposition home or self-care (01) ==
LOC: HO.CT 15:00
PROVIDERS: PCP Internal Medicine; Visit Provider Urology
DX: R31.29 Other microscopic hematuria (principal); N28.1 Cyst of kidney, acquired; R10.A1 Flank pain, right side; N20.0 Calculus of kidney
CPT/HCPCS: 74176

== ENCOUNTER → 2025-08-27 15:01 | Outpatient (BNV) | payer OTHER, SELFPAY | PROVIDERS: PCP Internal Medicine; Visit Provider Radiology Diagnostic Radiology | DX: K57.30 Diverticulosis of large intestine without perforation or abscess without bleeding (principal); N20.0 Calculus of kidney | CPT/HCPCS: 74176 ==